=== PATIENT | male | born 1945 | race Caucasian/White ===

== ENCOUNTER 2020-04-10 16:10 | Inpatient (IN) | payer MEDICARE ==
[~2020-04-10 16:10] MED LIST: Iopamidol-370 76% 500 ML 1 ML ONE
[2020-04-10] MEDS ORDERED: Heparin 1,000 UNITS/ML VIAL ONE (16:36)
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
[2020-04-10 18:11] LABS: Troponin I 0.046 ng/mL (< 0.028)
[2020-04-10] MEDS ORDERED: HumaLOG 300 UNITS/3 ML VIAL SC PRN ×2 (18:38)
[2020-04-10] MEDS ORDERED: Dextrose 5% in Water 1,000 ML IV PRN (18:38)
[2020-04-10] MEDS ORDERED: Ondansetron PF 4 MG/2 ML Vial IVP PRN (18:38)
[2020-04-10] MEDS ORDERED: Dextrose 50% Abboject 50 ML SYRINGE SLOW IVP PRN (18:38)
[2020-04-10] MEDS ORDERED: Ondansetron ODT 4 MG TAB PO PRN (18:38)
[2020-04-10 21:16] LABS: Troponin I 0.046 ng/mL (< 0.028)
--- NOTE | 2020-04-10 21:18 | CT ---
EXAM: CTA of the chest HISTORY: Covid positive with shortness of breath COMPARISON: None TECHNIQUE: Multiple contiguous axial images were obtained a CTA of the chest with contrast per pulmon bipin embolism protocol. 3-D oblique MIP reformats and direct coronal reformats were performed. FINDINGS: HEART: Normal in size without focal cardiac abnormality. PULMONARY ARTERIES: Normal in caliber without filling defects to suggest pulmonary emboli. MEDIASTINUM: No hilar or mediastinal lymphadenopathy. LUNGS: Scattered multifocal infiltrates are seen in the lungs consistent with Covid pneumonia. No marily picious mass. There is a calcified granuloma in the right lung base. PLEURAL SPACE: No pleural effusion or pneumothorax. CHEST WALL SOFT TISSUES: Unremarkable VISUALIZED OSSEOUS STRUCTURES: Degenerative changes in the spine. VISUALIZED SUBDIAPHRAGMATIC STRUCTURES: Unremarkable IMPRESSION: 1. No evidence of pulmonary thromboembolism 2. Covid pneumonia
[2020-04-10] MEDS ORDERED: Albuterol 200 PUFF (6.7GM INHALER) INH PRN (23:02)
[2020-04-11] MEDS: cefTRIAXone\\ROCEPHIN 1 GM in Sodium Chloride 0.9% 100 ML IVPB SCH ×2 (00:55→22:54)
[2020-04-11] MEDS: Azithromycin 500 MG in Sodium Chloride 0.9% 250 ML 250 ML IVPB SCH ×2 (01:41→23:31)
--- NOTE | 2020-04-11 05:33 | PDOC.FM ---
- Subjective Subjective: Patient denies CP, Abd pain, SOB. Per nursing, patient removed HFNC overnight with resultant O2 sat in 40s to use the restroom. He rapidly improved with HFNC and has remained on HFNC with latest settings at 60 flow rate and 77 FiO2. - Objective MAR Reviewed: Yes Vital Signs & Weight: Vital Signs (12 hours) Temp Pulse Resp BP Pulse Ox 04/11/20 03:33 98.4 F 90 20 119/62 93 L 04/11/20 02:22 93 L 04/11/20 00:00 99 F 97 22 H 121/71 93 L 04/10/20 22:06 92 L 04/10/20 21:40 97.4 F L 97 26 H 140/65 91 L Weight Weight 83.9 kg I&O: 04/09/20 04/10/20 04/11/20 06:59 06:59 06:59 Intake Total 640 Output Total 600 Balance 40 Result Diagrams: 04/11/20 05:11 04/11/20 05:11 Phys Exam - Physical Examination Constitutional: NAD Neck: supple, full ROM HFNC in place, no respiratory distress Cardiovascular: RRR Gastrointestinal: soft, non-tender Musculoskeletal: no edema Neurological: non-focal Psychiatric: normal affect Dx/Plan - Plan Plan: AHRF 2/2 COVID Pna with likely superimposed bacterial Pna - first symptoms on 03/31/20, COVID + on 04/10 - presented to our ED on bipap, currently on HFNC, will wean as tolerated - CTA: no PE - CXR: covid pna - WBC 27.7, bands 29% - D-dimer: 3.36 - outside window for txt with remdesevir or conv plasma - s/p decadron in ED, will continue with 6mg daily - procal 1.5. --> rocephin and azithromycin for possible superimposed bacterial pna (04/10), will trend procal Indeterminate Troponin -0.034, 0.046 -ekg: sinus tach, no ST changes -likely due to demand ischemia RERE vs CKD - BUN/Cr 45/1.53 > 42/1.36 - no past records to compare - will renally dose meds DM2 -continue home meds -increase accuchecks to q4hr as patient is hyperglycemic -SSI, hypoglycemia protocol HLD -continue home med
[2020-04-11 05:57] LABS: ALT (SGPT) 36 U/L (8-55); AST (SGOT) 37 U/L (5-34); Albumin 2.9 g/dL (3.4-4.8); Alkaline Phosphatase 158 U/L (40-110); Anion Gap 15 mmol/L (10-20); BUN (Urea Nitrogen) 42 mg/dL (8.4-25.7); Bilirubin, Total 0.4 mg/dL (0.2-1.2); Calc. Creatinine Clearance 55 mL/min (70-130); Calcium 8.7 mg/dL (7.8-10.44); Carbon Dioxide 23 mmol/L (23-31); Chloride 107 mmol/L (98-107); Globulin 3.3 g/dL (2.4-3.5); Glucose 355 mg/dL (83-110); Potassium 4.5 mmol/L (3.5-5.1); Protein, Total 6.2 g/dL (5.8-8.1); Sodium 140 mmol/L (136-145)
[2020-04-11 06:29] LABS: Hemoglobin 12.5 g/dL (14.0-18.0); Mean Corpuscular Hemoglobin 34.4 pg (27.0-31.0); Mean Platelet Volume 8.4 fL (7.4-10.4); Platelet Count 325 thou/uL (130-400); RBC Distribution Width 12.6 % (11.5-14.5); Red Blood Cell (RBC) Count 3.63 mill/uL (4.70-6.10); White Blood Cell (WBC) Count 24.9 thou/uL (4.8-10.8)
[2020-04-11 06:30] LABS: Band 21 % (5-11); Lymphocytes 9 % (21-51); MDiff Complete? YES; Monocytes 1 % (0-10); Myelocyte 2 % (0-0); Neutrophil 67 % (42-75)
[2020-04-11] MEDS ORDERED: SITAGLIPTIN PHOS PO SCH (08:00)
[2020-04-11] MEDS ORDERED: METFORMIN HCL PO SCH (08:00)
[2020-04-11] MEDS ORDERED: Alogliptin 25 MG TAB PO SCH (08:00)
[2020-04-11] MEDS ORDERED: [UNRECOGNIZED DRUG - OTHER] PO SCH (08:00)
[2020-04-11] MEDS ORDERED: metFORMIN XR 500 MG TAB PO SCH (08:00)
[2020-04-11] MEDS: Enoxaparin Sodium 40 MG/0.4 ML SYRINGE SC SCH (08:38)
[2020-04-11] MEDS: Dexamethasone 4 MG TAB PO SCH (08:39)
[2020-04-11] MEDS: Atorvastatin Calcium 20 MG TAB PO SCH (08:40)
[2020-04-11] MEDS: HumaLOG 300 UNITS/3 ML VIAL SC PRN ×4 (12:22→23:54)
[2020-04-11] MEDS: Acetaminophen 325 MG TAB PO PRN (20:31)
[2020-04-12] MEDS: HumaLOG 300 UNITS/3 ML VIAL SC PRN ×4 (05:54→20:38)
--- NOTE | 2020-04-12 05:58 | PDOC.FM ---
- Subjective Subjective: Patient expressed desire to go home; however, his O2 sat drops easily with simple conversation. The patient denies CP, abdominal pain, SOB despite being on HFNC. Reports that he is eating and drinking well. - Objective MAR Reviewed: Yes Vital Signs & Weight: Vital Signs (12 hours) Temp Pulse Resp BP Pulse Ox 04/12/20 04:00 98.3 F 94 24 H 132/76 95 04/12/20 03:06 85 18 94 L 04/12/20 01:15 96 04/12/20 00:01 98.9 F 89 20 123/68 96 04/11/20 22:40 20 94 L 04/11/20 21:01 98.9 F 04/11/20 20:31 99.1 F 100 24 H 94 L 04/11/20 20:01 93 L 04/11/20 19:36 92 L 04/11/20 19:30 99.1 F 103 H 26 H 149/77 H 93 L Weight Weight 83.9 kg I&O: 04/10/20 04/11/20 04/12/20 06:59 06:59 06:59 Intake Total 640 100 Output Total 600 400 Balance 40 -300 Result Diagrams: 04/12/20 06:11 04/12/20 06:11 EKG Reviewed by me: Yes (SR 80s to ST 115) Phys Exam - Physical Examination Constitutional: NAD HFNC in place crackles bilaterally Cardiovascular: RRR Gastrointestinal: soft, non-tender Musculoskeletal: no edema Neurological: non-focal Psychiatric: normal affect Dx/Plan - Plan Plan: AHRF 2/2 COVID Pna with likely superimposed bacterial Pna - first symptoms on 03/31/20, COVID + on 04/10 - currently on HFNC, will wean as tolerated - CTA: no PE - CXR: covid pna - WBC 27.7, bands 29% > 22.3 - D-dimer: 3.36 - outside window for txt with remdesevir or conv plasma - decadron 6mg daily - procal 1.5 > 0.78, will D/C rocephin (04/10-04/11) and change azithromycin to PO for possible superimposed atypical bacterial pna (04/10) Indeterminate Troponin -0.034, 0.046 -ekg: sinus tach, no ST changes -likely due to demand ischemia RERE vs CKD - BUN/Cr 45/1.53 > 42/1.36 > 40/1.11 - no past records to compare - will renally dose meds DM2 -held home meds while in hospital -started on 15 units lantus q AM -increase accuchecks to q4hr as patient is hyperglycemic -SSI, hypoglycemia protocol HLD -continue home med
[2020-04-12 06:49] LABS: Hemoglobin 12.4 g/dL (14.0-18.0); Mean Corpuscular HGB CONC 32.2 g/dL (32.0-36.0); Mean Corpuscular Hemoglobin 33.6 pg (27.0-31.0); Mean Platelet Volume 8.3 fL (7.4-10.4); Platelet Count 294 thou/uL (130-400); RBC Distribution Width 12.7 % (11.5-14.5); White Blood Cell (WBC) Count 22.3 thou/uL (4.8-10.8)
[2020-04-12 07:07] LABS: Anion Gap 14 mmol/L (10-20); BUN (Urea Nitrogen) 40 mg/dL (8.4-25.7); Calc. Creatinine Clearance 67 mL/min (70-130); Carbon Dioxide 24 mmol/L (23-31); Chloride 110 mmol/L (98-107); Sodium 143 mmol/L (136-145)
[2020-04-12 07:08] LABS: Calcium 8.6 mg/dL (7.8-10.44); Glucose 269 mg/dL (83-110)
[2020-04-12 07:33] LABS: Band 15 % (5-11); Lymphocytes 6 % (21-51); MDiff Complete? YES; Monocytes 3 % (0-10); Neutrophil 76 % (42-75); Polychromasia SLIGHT = 2-3 cells (100X) (0-2/hpf)
[2020-04-12] MEDS: Atorvastatin Calcium 20 MG TAB PO SCH (08:30)
[2020-04-12] MEDS: Enoxaparin Sodium 40 MG/0.4 ML SYRINGE SC SCH (08:30)
[2020-04-12] MEDS: Dexamethasone 4 MG TAB PO SCH (08:31)
[2020-04-12] MEDS ORDERED: Insulin Glargine 15 UNITS in Pre-Filled Syringe 1 EACH SC SCH (09:00)
[2020-04-12] MEDS ORDERED: Azithromycin 250 MG TAB PO SCH (23:00)
[2020-04-13] MEDS: HumaLOG 300 UNITS/3 ML VIAL SC PRN ×6 (00:08→21:34)
[2020-04-13 07:24] LABS: Anion Gap 16 mmol/L (10-20); BUN (Urea Nitrogen) 35 mg/dL (8.4-25.7); Calc. Creatinine Clearance 86 mL/min (70-130); Calcium 8.6 mg/dL (7.8-10.44); Carbon Dioxide 21 mmol/L (23-31); Chloride 109 mmol/L (98-107); Glucose 219 mg/dL (83-110); Potassium 5.1 mmol/L (3.5-5.1); Sodium 141 mmol/L (136-145)
[2020-04-13 07:25] LABS: #Eosinphils 0.1 thou/uL (0.0-0.7); #Monocytes 1.2 thou/uL (0.11-0.59); #Neutrophils 17.9 thou/uL (1.40-6.50); %Basophils 0.1 % (0.0-1.0); %Eosinophils 0.3 % (0.0-10.0); %Lymphocytes 4.7 % (21.0-51.0); %Monocytes 5.9 % (0.0-10.0); Hemoglobin 12.8 g/dL (14.0-18.0); Mean Corpuscular HGB CONC 31.2 g/dL (32.0-36.0); Mean Corpuscular Hemoglobin 32.8 pg (27.0-31.0); Mean Platelet Volume 8.2 fL (7.4-10.4); Platelet Count 248 thou/uL (130-400); RBC Distribution Width 12.7 % (11.5-14.5); White Blood Cell (WBC) Count 20.2 thou/uL (4.8-10.8)
--- NOTE | 2020-04-13 07:36 | PDOC.FM ---
- Subjective Subjective: Patient denies TUCKER, CP, Abd pain. Reports that he is ready to go home despite need for HFNC. He reports that he feels fine and does not have any concerns. He would like to work with physical therapy. - Objective MAR Reviewed: Yes Vital Signs & Weight: Vital Signs (12 hours) Temp Pulse Resp BP BP Pulse Ox 04/13/20 04:00 97.7 F 75 22 H 130/64 90 L 04/13/20 00:35 9 L 04/13/20 00:18 93 L 04/13/20 00:00 98.3 F 86 18 124/77 89 L 04/12/20 20:00 97.4 F L 87 20 135/70 94 L 04/12/20 19:45 96 Weight Weight 83.9 kg I&O: 04/12/20 04/13/20 04/14/20 06:59 06:59 06:59 Intake Total 100 466 Output Total 400 200 Balance -300 266 Result Diagrams: 04/13/20 06:00 04/13/20 03:30 EKG Reviewed by me: Yes (SR) Phys Exam - Physical Examination Constitutional: NAD HEENT: moist MMs HFNC in place Neck: supple crackles at the bases Cardiovascular: RRR Gastrointestinal: soft, non-tender, positive bowel sounds Musculoskeletal: no edema Neurological: non-focal, moves all 4 limbs Psychiatric: normal affect Dx/Plan - Plan Plan: AHRF 2/2 COVID Pna with likely superimposed bacterial Pna - first symptoms on 03/31/20, COVID + on 04/10 - currently on HFNC, will wean as tolerated - CTA: no PE - CXR: covid pna - WBC 27.7, bands 29% > 22.3 - D-dimer: 3.36 - outside window for txt with remdesevir or conv plasma - decadron 6mg daily - procal 1.5 > 0.78, will trend - CRP: 37.55, will trend - s/p rocephin (04/10-04/11), continue PO azithromycin for possible superimposed atypical bacterial pna (04/10) - PT consulted for evaluation and treatment Indeterminate Troponin -0.034, 0.046 -ekg: sinus tach, no ST changes -likely due to demand ischemia RERE, resolved - BUN/Cr 45/1.53 > 42/1.36 > 40/1.11 > 35/0.87 - no past records to compare DM2 -held home meds while in hospital -started on 15 units lantus > increased to 25 units -increase accuchecks to q4hr as patient is hyperglycemic -SSI, hypoglycemia protocol HLD -continue home med
[2020-04-13] MEDS: Dexamethasone 4 MG TAB PO SCH (09:02)
[2020-04-13] MEDS: Enoxaparin Sodium 40 MG/0.4 ML SYRINGE SC SCH (09:03)
[2020-04-13] MEDS: Atorvastatin Calcium 20 MG TAB PO SCH (09:03)
[2020-04-13] MEDS: Insulin Glargine 25 UNITS in Pre-Filled Syringe 1 EACH SC SCH (09:25)
--- NOTE | 2020-04-14 05:41 | PDOC.FM ---
- Subjective Subjective: Patient O2sat continues to drop with minimal exertion. Upon entering the room this morning, patient's O2 sat was in the low 70s. He quickly recovered to the 90s once he stopped conversing and was able to rest. He denies pain, but reports difficulty breathing. He is currently maxed out on HFNC. Discussed next step of BiPAP with the patient. - Objective MAR Reviewed: Yes Vital Signs & Weight: Vital Signs (12 hours) Temp Pulse Resp BP Pulse Ox 04/14/20 03:10 98.4 F 75 22 H 135/67 90 L 04/14/20 01:29 92 L 04/14/20 00:42 98.1 F 78 22 H 138/73 92 L 04/13/20 20:30 92 L 04/13/20 19:38 97.9 F 86 24 H 139/78 91 L Weight Weight 83.9 kg I&O: 04/12/20 04/13/20 04/14/20 06:59 06:59 06:59 Intake Total 100 466 610 Output Total 481 531 0898 Balance -300 266 -615 Result Diagrams: 04/14/20 07:11 04/14/20 07:12 EKG Reviewed by me: Yes (SR) Phys Exam - Physical Examination Anxious appearing HFNC in place Neck: supple, full ROM Wheezing, tachypneic tachycardic Gastrointestinal: soft, positive bowel sounds Musculoskeletal: no edema Neurological: moves all 4 limbs Psychiatric: A&O x 3 Skin: no rash Dx/Plan - Plan Plan: AHRF 2/2 COVID Pna with likely superimposed bacterial Pna - first symptoms on 03/31/20, COVID + on 04/10 - maxed out on HFNC with O2sats in low 80s, will transition to BiPAP and move patient to IMCU - CTA: no PE, CXR: covid pna - WBC 27.7, bands 29% > > > 25.6; D-dimer: 3.36 - outside window for txt with remdesevir or conv plasma - decadron 6mg daily > increased to 6mg IV BID - increased albuterol inhaler to Q4hr prn - procal 1.5 > 0.78 > 0.36 > will trend; CRP: 37.55 > 9.06 > 5.21, will trend - s/p rocephin (04/10-04/11), continue PO azithromycin for possible superimposed atypical bacterial pna (04/10) - PT consulted for evaluation and treatment - xray ordered and pending Indeterminate Troponin -0.034, 0.046 -ekg: sinus tach, no ST changes -likely due to demand ischemia RERE, resolved DM2 -held home meds while in hospital -started on 15 units lantus > increased to 25 units -increase accuchecks to q4hr as patient is hyperglycemic -SSI, hypoglycemia protocol HLD -continue home med Dispo: will place patient on BiPAP, transfer to [facility]
[2020-04-14 07:40] LABS: Hemoglobin 14.5 g/dL (14.0-18.0); Mean Corpuscular HGB CONC 33.3 g/dL (32.0-36.0); Mean Corpuscular Hemoglobin 34.9 pg (27.0-31.0); Mean Platelet Volume 8.4 fL (7.4-10.4); Platelet Count 159 thou/uL (130-400); RBC Distribution Width 12.5 % (11.5-14.5); Red Blood Cell (RBC) Count 4.14 mill/uL (4.70-6.10); White Blood Cell (WBC) Count 25.6 thou/uL (4.8-10.8)
[2020-04-14 08:04] LABS: Anion Gap 15 mmol/L (10-20); BUN (Urea Nitrogen) 31 mg/dL (8.4-25.7); Calc. Creatinine Clearance 88 mL/min (70-130); Calcium 8.7 mg/dL (7.8-10.44); Carbon Dioxide 23 mmol/L (23-31); Chloride 105 mmol/L (98-107); Glucose 138 mg/dL (83-110); Potassium 4.7 mmol/L (3.5-5.1); Sodium 138 mmol/L (136-145)
--- NOTE | 2020-04-14 08:41 | RAD ---
Chest one view HISTORY:: Pneumonia. COMPARISON: 04/10/2020. FINDINGS: Cardiac silhouette is magnified by projection. Ill-defined patchy areas of groundglass infi ltrate throughout each lung are more pronounced than on the prior study, especially at the right lower lobe. No lobar consolidation or evidence of pneumothorax. IMPRESSION : Mild to moderate progression of bilateral groundglass multifocal infiltrates.
[2020-04-14 08:43] LABS: Band 8 % (5-11); Lymphocytes 7 % (21-51); MDiff Complete? YES; Macrocytosis SLIGHT = 6-15 cells (100X) (0-5/hpf); Metamyelocyte 1 % (0-0); Monocytes 5 % (0-10); Myelocyte 1 % (0-0); Neutrophil 78 % (42-75); Platelet Morphology Comment Appears Adequate; Polychromasia SLIGHT = 2-3 cells (100X) (0-2/hpf)
[2020-04-14] MEDS ORDERED: Lorazepam 2 MG/ML VIAL ONE ×3 (08:50→12:24)
[2020-04-14] MEDS ORDERED: Lorazepam 2 MG/ML VIAL SLOW IVP SCH ×2 (09:00→10:15)
[2020-04-14] MEDS ORDERED: Electrolyte Replacement Protocol 1 EACH FS ONE (10:40)
[2020-04-14] MEDS ORDERED: Ventilator Sedation Protocol 1 EACH FS SCH (10:40)
[2020-04-14] MEDS ORDERED: DISCONTINUE PREVIOUS NARCOTIC PAIN MEDICATIONS AND BENZODIAZEPINES FS SCH (11:00)
[2020-04-14] MEDS ORDERED: Electrolyte Replacement Protocol FS PRN (11:00)
[2020-04-14] MEDS ORDERED: Propofol BOLUS 1,000 MG/100 ML VIAL IV PRN (11:00)
[2020-04-14] MEDS ORDERED: fentaNYL Citrate/PF 2,000 MCG in Sodium Chloride 0.9% 60 ML IV SCH (11:00)
[2020-04-14] MEDS ORDERED: Fentanyl BOLUS 250 ML IVPB PRN (11:00)
[2020-04-14] MEDS ORDERED: Morphine 2 MG/ML VIAL SLOW IVP PRN (11:00)
--- NOTE | 2020-04-14 11:15 | CON ---
DATE OF CONSULTATION: 04/14/2020 This is 35 minutes of critical time. REASON FOR CONSULTATION: Decompensated COVID pneumonia. HISTORY OF PRESENT ILLNESS: The patient tells me that he was diagnosed with COVID-19 infection about 14 days ago. His is also sick. The patient has been hospitalized since 04/10. He has been gradually worsening in terms of his hypoxemia. Today, he was placed on BiPAP with 100% FiO2 and despite that, his O2 sats are only in the 80s. He does not like being on the BiPAP, feels like he is smothering and is requesting to be intubated. PAST MEDICAL HISTORY: 1. Hypertension. 2. Hyperlipidemia. 3. Diabetes mellitus type 2. PAST SURGICAL HISTORY: Neck surgery. FAMILY HISTORY: Father of an aneurysm. SOCIAL HISTORY: He smoked less than a pack per day for 10 years, quitting 15 years ago. Does not drink alcohol. Does not use illicit drugs. Lives with the in [place]. MEDICATIONS: Prior to admission: 1. Atorvastatin. 2. Doxycycline. 3. Janumet. ALLERGIES: NONE. REVIEW OF SYSTEMS: Difficult to obtain because the patient is on BIPAP. PHYSICAL EXAMINATION: VITAL SIGNS: Temperature 100.5, pulse 104, respirations 24, O2 saturation 98% on BiPAP, 100% FiO2, blood pressure 169/76. GENERAL: This is an elderly man who is in florid respiratory distress and very anxious. HEENT: Unremarkable. NECK: No adenopathy or JVD. LUNGS: Diffuse crackles. CARDIAC: S1 and S2. Tachycardic. ABDOMEN: Obese, soft, nontender. EXTREMITIES: No clubbing, cyanosis, or edema. LABORATORY DATA: White blood cell count 25.6, hematocrit 43, platelet count 159. Sodium 138, potassium 4.7, chloride 105, CO2 23, BUN 31, creatinine 0.8, glucose 138. Last C-reactive protein was 5.2. His x-ray shows diffuse bilateral infiltrates. ASSESSMENT: 1. COVID-19 pneumonia with worsening hypoxemia. 2. Acute hypoxic respiratory failure. PLAN: The patient really faces no other choice except to be intubated versus doing continued BiPAP. The BiPAP does not seem to be helping. The patient states that he is uncomfortable with the BiPAP and very anxious and is requesting to be intubated. Because of lack of the ICU beds, he will be taken down to the PACU, and intubated. He will be in prone position for 72 hours. I have started colchicine to be given in addition to his steroids and anticoagulation. His prognosis is very poor for functional recovery. I will try to discuss the case with his . Job ID: [id number]
[2020-04-14] MEDS ORDERED: PROPOFOL 0 ML ONE (11:26)
[2020-04-14] MEDS ORDERED: Propofol 1,000 MG/100 ML VIAL IV ONE (11:27)
[2020-04-14] MEDS: Albuterol 200 PUFF (6.7GM INHALER) INH SCH ×4 (12:15→23:16)
[2020-04-14] MEDS ORDERED: Vecuronium 10 MG VIAL ONE ×2 (12:24→12:53)
[2020-04-14] MEDS: Propofol 1,000 MG/100 ML VIAL IV PRN ×2 (12:50→17:53)
[2020-04-14] MEDS: Vecuronium 10 MG VIAL IVP PRN ×3 (12:50→21:28)
[2020-04-14] MEDS ORDERED: Fentanyl CADD 100 ML ONE (12:52)
--- NOTE | 2020-04-14 12:59 | OP ---
DATE OF PROCEDURE: 04/14/2020 PROCEDURE PERFORMED: Left subclavian central line placement. PREOPERATIVE DIAGNOSES: COVID, poor IV access. POSTOPERATIVE DIAGNOSIS: Successful left subclavian placement. ANESTHESIA: 1% lidocaine without epinephrine. DESCRIPTION OF PROCEDURE: The patient had been intubated, sedated and paralyzed prior to me performing the procedure. The left subclavian region was cleansed with chlorhexidine and the patient was draped sterilely. The patient was in the flat prone position for the procedure. I could not put him in Trendelenburg because his oxygenation was terrible on mechanical ventilation. After local anesthesia had been applied, a central line was placed in the left subclavian vein via the modified Seldinger technique on the first attempt without difficulty. X-ray performed after the procedure confirmed proper line placement. All 3 ports flushed venous blood. Job ID: [id number]
[2020-04-14 13:08] LABS: Actual Bicarbonate (HCO3a) 23.5 mEq/L (22-28); Base Excess (BEa) -3.9 mEq/L (-2.0 to +3.0); CO2 Tension 51.7 mmHg (35.0-45.0); Calcium, Ionized (arterial) 1.19 mmol/L (1.12-1.30); Carboxyhemoglobin (COHb) 1.4 gm% (0.0-3.0); Hemoglobin (Hb) 15.2 g/dL (14.0-18.0); Potassium - ABG Lab 4.61 mmol/L (3.70-5.30); pH, Arterial 7.28 (7.35-7.45)
[2020-04-14 13:14] LABS: ALV-art Gradient 567.375 mmHg (0-20); Puncture Site RRA
[2020-04-14] MEDS: Enoxaparin Sodium 40 MG/0.4 ML SYRINGE SC SCH (14:22)
[2020-04-14] MEDS: Acetaminophen 325 MG TAB PO PRN ×2 (14:22→22:56)
[2020-04-14] MEDS: Atorvastatin Calcium 20 MG TAB PO SCH (14:23)
[2020-04-14] MEDS: Insulin Glargine 25 UNITS in Pre-Filled Syringe 1 EACH SC SCH (14:25)
[2020-04-14] MEDS: Sodium Chloride 0.9% 1,000 ML IV SCH (14:33)
[2020-04-14] MEDS: Dexamethasone 6 MG in Sodium Chloride 0.9% 50 ML IVPB SCH ×2 (14:34→20:46)
--- NOTE | 2020-04-14 16:08 | RAD ---
PORTABLE CHEST: Date: 04/14/2020 HISTORY: COVID pneumonia follow-up. COMPARISON: Earlier exam same date. FINDINGS: Since the prior study, there has been placement of an endotracheal tube which is in satisfactory posi tion. NG tube is seen, the tip is difficult to visualize and appears to be below the hemidiaphragm. T here has been placement of a left subclavian line with catheter tip overlying the right atrium. No pn eumothorax. Interstitial alveolar lung changes appear somewhat worsened as compared to the prior exam . IMPRESSION: 1. Placement of endotracheal and NG tubes and left subclavian line. No pneumothorax. 2. Slight worsening of the interstitial alveolar lung change. POS: [facility]
[2020-04-14] MEDS: Colchicine 0.6 MG TAB PO SCH (20:46)
[2020-04-14] MEDS: HumaLOG 300 UNITS/3 ML VIAL SC PRN (22:53)
[2020-04-15] MEDS: HumaLOG 300 UNITS/3 ML VIAL SC PRN ×5 (00:36→16:59)
[2020-04-15] MEDS: Vecuronium 10 MG VIAL IVP PRN ×6 (01:30→19:15)
[2020-04-15] MEDS: Albuterol 200 PUFF (6.7GM INHALER) INH SCH ×5 (02:49→21:45)
[2020-04-15] MEDS: Sodium Chloride 0.9% 1,000 ML IV SCH ×2 (03:42→16:22)
[2020-04-15 04:23] LABS: Anion Gap 14 mmol/L (10-20); BUN (Urea Nitrogen) 47 mg/dL (8.4-25.7); Calc. Creatinine Clearance 56 mL/min (70-130); Calcium 7.3 mg/dL (7.8-10.44); Carbon Dioxide 23 mmol/L (23-31); Chloride 106 mmol/L (98-107); Glucose 245 mg/dL (83-110); Potassium 5.6 mmol/L (3.5-5.1); Sodium 137 mmol/L (136-145)
[2020-04-15 04:25] LABS: Band 29 % (5-11); Hemoglobin 12.9 g/dL (14.0-18.0); Lymphocytes 2 % (21-51); MDiff Complete? YES; Mean Corpuscular HGB CONC 31.6 g/dL (32.0-36.0); Mean Corpuscular Hemoglobin 33.2 pg (27.0-31.0); Mean Platelet Volume 10.6 fL (7.4-10.4); Metamyelocyte 1 % (0-0); Monocytes 2 % (0-10); Neutrophil 66 % (42-75); Platelet Count 76 thou/uL (130-400); Platelet Morphology Comment Appears Decreased; RBC Distribution Width 12.8 % (11.5-14.5); Red Blood Cell (RBC) Count 3.87 mill/uL (4.70-6.10); White Blood Cell (WBC) Count 31.1 thou/uL (4.8-10.8)
--- NOTE | 2020-04-15 06:12 | PDOC.FM ---
- Subjective Subjective: Patient was placed on BiPAP yesterday morning. He was experiencing anxiety on the BiPAP despite Ativan administration. He was also becoming fatigued and asked to be intubated. The patient is now intubated and sedated with propofol and fentanyl. He is currently being proned. A left subclavian was also placed yesterday. His current vent settings are FiO2 of 70, TV 450, RR 20, and PEEP of 12. Colchicine was also added to the patient's medication regimen yesterday. - Objective MAR Reviewed: Yes Vital Signs & Weight: Vital Signs (12 hours) Temp Pulse Pulse Ox 04/15/20 02:29 84 04/14/20 22:56 100.4 F H 04/14/20 22:48 97 04/14/20 20:00 98 04/14/20 18:41 92 Weight Weight 83.9 kg Most Recent Monitor Data Heart Rate from ECG 82 NIBP 98/58 NIBP BP-Mean 71 Respiration from ECG 20 SpO2 94 I&O: 04/13/20 04/14/20 04/15/20 06:59 06:59 06:59 Intake Total 176 167 8266 Output Total 200 1225 502 Balance 266 -615 990 Result Diagrams: 04/15/20 02:50 04/15/20 02:50 Phys Exam - Physical Examination Intubated, proned Neck: no JVD coarse breath sounds throughout Cardiovascular: RRR Musculoskeletal: no edema sedated and paralyzed Skin: no rash Dx/Plan - Plan Plan: 1. Neuro - patient intubated, sedated, and paralyzed with propofol, fentanyl, and vecuronium - will monitor patient's response to sedation vacations 2. CV - RRR, will continue cardiac monitoring - Indeterminate Troponin - 0.034, 0.046 - ekg: sinus tach, no ST changes - likely due to demand ischemia 3 .Resp - COVID PNA (first symptoms on 03/31/20, COVID + on 04/10), outside window for txt with remdesevir or conv plasma - IV dex 6 mg BID, colchicine, albuterol inhaler - patient had rapid decline on 04/14 from HFNC to BiPAP to intubation - Current Vent Settings: FiO2 70, TV 450, RR 20, PEEP 12 - ABG: PH 7.25, pCO2 51.7, pO2 75.3 > Respiratory acidosis, consider increased RR and decreasing TV - Pulmonology, Dr. Velez consulted - xray: stable GI - dietary consulted, will need tube feeds - will need bowel regiment Renal/Hep - RERE - BUN/CR: 47/1.33 - fluids at 70 mls/hr - will continue to monitor with daily CMP 4. ID - COVID PNA, see above - s/p rocephin (04/10-04/11) and azithro (04/10-04/12) for possible superimposed bacterial infection - will monitor for sings of other infections 5. Heme - Plt: 77, Lovenox DC'd and fondaparinux added 6. Endo/Electrolytes - DM2: held home meds while in hospital, on 25 units of basal insulin, SSI, hypoglycemia protocol - will monitor patient's glucose throughout the day, will likely need increase in insulin - Hyperkalemia: kayexalate ordered, repeat K at 1800, insulin given this morning should help as well 7. Lines/Tubes: - Subclavian central line placed on 04/14 - Intubated on 04/14 - Winkler placed on 04/14 8. Abx: - s/p rocephin (04/10-04/11) and azithro (04/10-04/12) Dispo: continue medical management with steroids, colchicine, and ventilation in the ICU; will continue to monitor electrolytes and treat as needed
[2020-04-15] MEDS ORDERED: Albuterol Sulfate 2.5 mg/3 ml Neb NEB PRN (06:24)
[2020-04-15 06:56] LABS: Actual Bicarbonate (HCO3a) 22.3 mEq/L (22-28); Base Excess (BEa) -5.3 mEq/L (-2.0 to +3.0); CO2 Tension 51.7 mmHg (35.0-45.0); Calcium, Ionized (arterial) 1.13 mmol/L (1.12-1.30); Carboxyhemoglobin (COHb) 1.1 gm% (0.0-3.0); O2 Tension (PaO2), arterial 75.3 mmHg (> 70.0); Potassium - ABG Lab 5.25 mmol/L (3.70-5.30)
[2020-04-15 06:58] LABS: ALV-art Gradient 359.175 mmHg (0-20); Puncture Site RRA; pH, Arterial 7.25 (7.35-7.45)
--- NOTE | 2020-04-15 08:16 | PRG ---
DATE OF SERVICE: 04/15/2020 TIME SPENT: 35 minutes of critical care time. SUBJECTIVE: The patient remains in a prone position on mechanical ventilation. OBJECTIVE: VITAL SIGNS: Temperature 99.3, pulse 82, blood pressure 101/60, O2 saturation 95%. 24-hour intake 1492, output 502. HEENT: Unremarkable. NECK: No adenopathy or JVD. LUNGS: Coarse breath sounds. CARDIAC: S1, S2. Regular. ABDOMEN: Soft. EXTREMITIES: No edema. LABORATORY DATA: Sodium 137, potassium 5.6, chloride 106, CO2 of 23, BUN 47, creatinine 1.3, glucose 245. White blood cell count 31.1, hematocrit 40.7, and platelet count 76. ABG; pH 7.25, pCO2 of 52, pO2 of 75, on assist control, rate 20, tidal volume 450, PEEP 12, FiO2 of 70%. X-ray continued to show bilateral infiltrates. ASSESSMENT: 1. COVID-19 pneumonia. 2. Acute hypoxic respiratory failure requiring mechanical ventilation. 3. Diabetes mellitus type 2. 4. Developing hyperkalemia and renal insufficiency. PLAN: 1. I will go ahead and give him a dose of Kayexalate. His platelet count based on that, we will have to stop the enoxaparin and I will put him on Arixtra instead. 2. Continue colchicine, steroids. 3. One dose of Kayexalate. 4. Continue insulin. 5. Prognosis extremely guarded. Job ID: [id number]
[2020-04-15] MEDS: Colchicine 0.6 MG TAB PO SCH ×2 (08:46→20:27)
[2020-04-15] MEDS: Atorvastatin Calcium 20 MG TAB PO SCH (08:46)
[2020-04-15] MEDS: Dexamethasone 6 MG in Sodium Chloride 0.9% 50 ML IVPB SCH ×2 (08:46→20:27)
[2020-04-15] MEDS: Insulin Glargine 25 UNITS in Pre-Filled Syringe 1 EACH SC SCH (08:46)
[2020-04-15] MEDS: Pantoprazole 40 MG VIAL IVP SCH (08:46)
--- NOTE | 2020-04-15 09:41 | RAD ---
CHEST 1 VIEW: Date; 04/15/2020 INDICATION: History of pneumonia. COMPARISON: Prior exam dated 04/14/2020. IMPRESSION: The patient is intubated with gastric catheter placement and a left subclavian central venous cathete r which is stable. Bilateral air space disease persists. No pneumothorax is evident. POS: BH
[2020-04-15] MEDS ORDERED: FONDAPARINUX SODIUM SC SCH (11:45)
[2020-04-15] MEDS ORDERED: ADMIXTURE FEE SC SCH (11:45)
[2020-04-15] MEDS ORDERED: Fentanyl CADD 100 ML ONE (12:33)
[2020-04-15] MEDS: Propofol 1,000 MG/100 ML VIAL IV PRN ×2 (12:36→23:28)
[2020-04-15] MEDS ORDERED: Sterile Water 10 ML ONE (16:35)
[2020-04-15 18:38] LABS: Potassium 5.1 mmol/L (3.5-5.1)
[2020-04-15] MEDS: Lorazepam 2 MG/ML VIAL SLOW IVP PRN (21:15)
[2020-04-16] MEDS: HumaLOG 300 UNITS/3 ML VIAL SC PRN ×5 (00:08→20:01)
[2020-04-16] MEDS: Albuterol 200 PUFF (6.7GM INHALER) INH SCH ×6 (01:35→21:54)
[2020-04-16] MEDS: Vecuronium 10 MG VIAL IVP PRN ×8 (03:30→23:50)
[2020-04-16 04:29] LABS: Anion Gap 10 mmol/L (10-20); BUN (Urea Nitrogen) 43 mg/dL (8.4-25.7); Calc. Creatinine Clearance 72 mL/min (70-130); Calcium 7.3 mg/dL (7.8-10.44); Carbon Dioxide 25 mmol/L (23-31); Chloride 109 mmol/L (98-107); Glucose 263 mg/dL (83-110); Potassium 4.7 mmol/L (3.5-5.1); Sodium 139 mmol/L (136-145)
[2020-04-16 05:09] LABS: Hemoglobin 12.5 g/dL (14.0-18.0); Large Platelets SLIGHT; Lymphocytes 5 % (21-51); MDiff Complete? YES; Mean Corpuscular HGB CONC 32.1 g/dL (32.0-36.0); Mean Corpuscular Hemoglobin 33.9 pg (27.0-31.0); Mean Platelet Volume 10.5 fL (7.4-10.4); Monocytes 1 % (0-10); Neutrophil 94 % (42-75); Platelet Count 84 thou/uL (130-400); Platelet Morphology Comment Appears Decreased; RBC Distribution Width 12.9 % (11.5-14.5); Red Blood Cell (RBC) Count 3.69 mill/uL (4.70-6.10); White Blood Cell (WBC) Count 28.8 thou/uL (4.8-10.8)
--- NOTE | 2020-04-16 05:15 | PDOC.FM ---
- Subjective Subjective: No acute events overnight. Patient remains intubated, sedated, and paralyzed. He is still in the proned position. He was started on tube feeds. - Objective MAR Reviewed: Yes Vital Signs & Weight: Vital Signs (12 hours) Pulse Resp Pulse Ox 04/16/20 02:26 88 04/15/20 22:23 93 04/15/20 19:35 98 04/15/20 19:21 110 H 04/15/20 18:00 23 H Weight Admit Weight 83.461 kg Weight 83.9 kg Most Recent Monitor Data Heart Rate from ECG 89 NIBP 126/68 NIBP BP-Mean 87 Respiration from ECG 23 SpO2 97 I&O: 04/14/20 04/15/20 04/16/20 06:59 06:59 06:59 Intake Total 610 1492 1089 Output Total 7423 973 5359 Balance -615 990 -141 Result Diagrams: 04/16/20 03:40 04/16/20 03:40 Phys Exam - Physical Examination intubated, sedated, paralyzed, prone position Neck: no JVD coarse breath sounds bilaterally, expiratory wheezing at the bases Cardiovascular: RRR Gastrointestinal: soft, positive bowel sounds Musculoskeletal: no edema, pulses present medically paralyzed Skin: no rash Dx/Plan - Plan Plan: 1. Neuro - patient intubated, sedated, and paralyzed with propofol, fentanyl, and vecuronium - will monitor patient's response to sedation vacations 2. CV - RRR, will continue cardiac monitoring - Indeterminate Troponin - 0.034, 0.046 - ekg: sinus tach, no ST changes - likely due to demand ischemia 3 .Resp - COVID PNA (first symptoms on 03/31/20, COVID + on 04/10), outside window for txt with remdesevir or conv plasma - IV dex 6 mg BID, colchicine, albuterol inhaler - patient had rapid decline on 04/14 from HFNC to BiPAP to intubation - Current Vent Settings: FiO2 65, TV 450, RR 23, PEEP 12 - ABG on 04/15: PH 7.25, pCO2 51.7, pO2 75.3; patient's RR rate was increased following ABG results - Pulmonology, Dr. Velez consulted - xray: stable 4. GI - dietary consulted, nepro tube feeds - daily miralax with prn colace 5. Renal/Hep - RERE, improving - BUN/CR: 47/1.33 > 43/1.04 - fluids at 70 mls/hr - will continue to monitor with daily CMP 6. ID - COVID PNA, see above - s/p rocephin (04/10-04/11) and azithro (04/10-04/12) for possible superimposed bacterial infection - will monitor for sings of other infections 7. Heme - Plt: 77 > 84, Lovenox DC'd and fondaparinux added 8. Endo/Electrolytes - DM2: held home meds while in hospital, increase to 30 units of basal insulin, aggressive SSI, hypoglycemia protocol - Hyperkalemia: resolved after kayexalate; 4.7 on am BMP 9. Lines/Tubes: - Left Subclavian central line placed on 04/14 - Intubated on 04/14 with NG tube placed - Winkler placed on 04/14 - IV: Left AC 10. Abx: - s/p rocephin (04/10-04/11) and azithro (04/10-04/12) Dispo: continue medical management with steroids, colchicine, and ventilation in the ICU; will continue to monitor electrolytes and treat as needed Addendum - Attending - Attending Attestation Date/Time: 04/16/20 6451 I personally evaluated the patient and discussed the management with the team. I agree with the History, Examination, Assessment and Plan documented above with any addition or exceptions noted below. Supportive care for COVID PNA.
[2020-04-16] MEDS: Propofol 1,000 MG/100 ML VIAL IV PRN ×3 (06:07→18:31)
[2020-04-16] MEDS ORDERED: Docusate 100 MG CAP PO PRN (06:52)
[2020-04-16] MEDS: Polyethylene Glycol 3350 17 GM Packet PER TUBE SCH (07:57)
[2020-04-16] MEDS: Atorvastatin Calcium 20 MG TAB PO SCH (07:57)
[2020-04-16] MEDS: Colchicine 0.6 MG TAB PO SCH ×2 (07:57→21:03)
[2020-04-16] MEDS: Pantoprazole 40 MG VIAL IVP SCH (07:57)
[2020-04-16] MEDS: ADMIXTURE FEE SC SCH (07:58)
[2020-04-16] MEDS: FONDAPARINUX SODIUM SC SCH (07:58)
[2020-04-16] MEDS: Sodium Chloride 0.9% 1,000 ML IV SCH (08:00)
[2020-04-16] MEDS: Dexamethasone 6 MG in Sodium Chloride 0.9% 50 ML IVPB SCH ×2 (08:15→21:03)
[2020-04-16] MEDS ORDERED: Insulin Glargine 30 UNITS in Pre-Filled Syringe 1 EACH SC SCH (09:00)
--- NOTE | 2020-04-16 09:19 | RAD ---
CHEST 1 VIEW: Date: 04/16/2020 INDICATION: History of pneumonia. COMPARISON: Prior exam dated 04/15/2020. IMPRESSION: Gastric catheter, ET tube, and left subclavian central venous catheter is stable. Bilateral air space disease persists. No pneumothorax is evident. POS: BH
[2020-04-16] MEDS ORDERED: Fentanyl CADD 100 ML ONE (12:17)
--- NOTE | 2020-04-16 14:45 | PRG ---
DATE OF SERVICE: 04/16/2020 SUBJECTIVE: Nicholas Vergara remains in the prone position. OBJECTIVE: VITAL SIGNS: Heart rate is in the 60s, blood pressure 134/68. LUNGS: Remarkable for distant breath sounds. HEART: Regular rhythm. ABDOMEN: Soft. He is afebrile. Chest radiograph shows dense alveolar infiltrates bilaterally. LABORATORY DATA: White count 28.8, hemoglobin 12.5, platelets 84,000. Sodium 139, potassium 4.7, chloride 109, bicarb 25, BUN 43, creatinine 1.04. IMPRESSION: 1. Respiratory failure with COVID pneumonia. 2. Diabetes. 3. Renal insufficiency that has improved compared to yesterday with a creatinine today of 1.04; yesterday 1.33. He has some degree of chronic diabetic kidney disease. We will continue current care. Critical care time 30 min. Job ID: [id number] MTDD
[2020-04-17] MEDS: HumaLOG 300 UNITS/3 ML VIAL SC PRN ×6 (00:57→22:48)
[2020-04-17] MEDS: Propofol 1,000 MG/100 ML VIAL IV PRN ×5 (00:58→21:00)
[2020-04-17] MEDS: Vecuronium 10 MG VIAL IVP PRN ×6 (01:00→13:22)
[2020-04-17] MEDS: Albuterol 200 PUFF (6.7GM INHALER) INH SCH ×6 (03:04→22:28)
[2020-04-17 04:34] LABS: Band 10 % (5-11); Hemoglobin 12.3 g/dL (14.0-18.0); Lymphocytes 4 % (21-51); MDiff Complete? YES; Mean Corpuscular HGB CONC 31.5 g/dL (32.0-36.0); Mean Corpuscular Hemoglobin 33.6 pg (27.0-31.0); Mean Platelet Volume 9.5 fL (7.4-10.4); Monocytes 2 % (0-10); Neutrophil 84 % (42-75); Platelet Count 166 thou/uL (130-400); Platelet Morphology Comment Appears Adequate; Red Blood Cell (RBC) Count 3.65 mill/uL (4.70-6.10); White Blood Cell (WBC) Count 31.3 thou/uL (4.8-10.8)
[2020-04-17 04:35] LABS: Anion Gap 13 mmol/L (10-20); BUN (Urea Nitrogen) 50 mg/dL (8.4-25.7); Calc. Creatinine Clearance 74 mL/min (70-130); Calcium 7.6 mg/dL (7.8-10.44); Carbon Dioxide 25 mmol/L (23-31); Chloride 107 mmol/L (98-107); Glucose 330 mg/dL (83-110); Potassium 5.1 mmol/L (3.5-5.1); Sodium 140 mmol/L (136-145)
--- NOTE | 2020-04-17 05:50 | PDOC.FM ---
- Subjective Subjective: Patient remains intubated, sedated, and paralyzed in the CCU. Patient is currently proned, but will be changed to the supine position later this morning. Patient continues to receive paralytic medication every 3 hours. - Objective Vital Signs & Weight: Vital Signs (12 hours) Temp Pulse Pulse Ox 04/17/20 04:00 98.2 F 04/17/20 02:55 112 H 04/16/20 23:33 98.0 F 04/16/20 21:42 89 04/16/20 19:22 96 04/16/20 18:24 105 H Weight Admit Weight 83.461 kg Weight 83.9 kg Most Recent Monitor Data Heart Rate from ECG 105 NIBP 158/71 NIBP BP-Mean 100 Respiration from ECG 23 SpO2 95 I&O: 04/15/20 04/16/20 04/17/20 06:59 06:59 06:59 Intake Total 1492 2462 1349 Output Total 502 1365 1211 Balance 990 1097 138 Result Diagrams: 04/17/20 03:25 04/17/20 03:25 Phys Exam - Physical Examination intubated, sedated, paralyzed Neck: no JVD course breath sounds bilaterally tachycardic, regular rhythm Gastrointestinal: soft, positive bowel sounds Musculoskeletal: no edema, pulses present sedated, paralyzed Skin: no rash Dx/Plan - Plan Plan: 1. Neuro - patient intubated, sedated, and paralyzed with propofol, fentanyl, and vecuronium - will monitor patient's response to sedation vacations 2. CV - Ta, will continue cardiac monitoring - Indeterminate Troponin - 0.034, 0.046 - ekg: sinus tach, no ST changes - likely due to demand ischemia 3 .Resp - COVID PNA (first symptoms on 03/31/20, COVID + on 04/10), outside window for txt with remdesevir or conv plasma - IV dex 6 mg BID, colchicine, albuterol inhaler - patient had rapid decline on 04/14 from HFNC to BiPAP to intubation - Current Vent Settings: FiO2 65, TV 450, RR 23, PEEP 12 - ABG on 04/15: PH 7.25, pCO2 51.7, pO2 75.3; patient's RR rate was increased following ABG results - Pulmonology, Dr. Velez consulted - xray: stable 4. GI - dietary consulted, nepro tube feeds - daily miralax with prn colace 5. Renal/Hep - RERE, improving - BUN/CR: 47/1.33 > 43/1.04 > 50/1.01 - fluids at 70 mls/hr - will continue to monitor with daily CMP 6. ID - COVID PNA, see above - s/p rocephin (04/10-04/11) and azithro (04/10-04/12) for possible superimposed bacterial infection - - Leukocytosis: 31.3, likely 2/2 to stress response, steroids, and COVID; no other sings of infection at this time as patient is afebrile, will continue to monitor for other signs of infection as patient does have many sources of infection 7. Heme - Plt: 166, Lovenox DC'd on 04/15 and fondaparinux added due to thrombocytopenia and concern for HIT 8. Endo/Electrolytes - DM2: held home meds while in hospital, - continues to be hyperglycemic despite increasing basal insulin daily - will increase to 35 units and reach out to dietary regarding possible switch to glucerna - SSI, hypoglycemia protocol - Hyperkalemia: resolved after kayexalate; 5.1 on am BMP 9. Lines/Tubes: - Left Subclavian central line placed on 04/14 - Intubated on 04/14 with OG tube placed - Winkler placed on 04/14 - IV: Left AC 10. Abx: - s/p rocephin (04/10-04/11) and azithro (04/10-04/12) Dispo: continue medical management with steroids, colchicine, and ventilation in the ICU; will continue to monitor electrolytes and treat as needed Addendum - Attending - Attending Attestation Date/Time: 04/17/20 4513 I personally evaluated the patient and discussed the management with Dr. Perdue. I agree with the History, Examination, Assessment and Plan documented above with any addition or exceptions noted below. NAEON. Remains proned. Ventilator settings not escalating thus far. Continue supportive care.
[2020-04-17] MEDS: FONDAPARINUX SODIUM SC SCH (06:26)
[2020-04-17] MEDS: ADMIXTURE FEE SC SCH (06:26)
[2020-04-17] MEDS: Polyethylene Glycol 3350 17 GM Packet PER TUBE SCH (08:04)
[2020-04-17] MEDS: Atorvastatin Calcium 20 MG TAB PO SCH (08:04)
[2020-04-17] MEDS: Pantoprazole 40 MG VIAL IVP SCH (08:04)
--- NOTE | 2020-04-17 08:11 | RAD ---
CHEST 1 VIEW: Date: 04/17/2020 INDICATION: History of pneumonia. COMPARISON: Prior exam dated 04/16/2020. IMPRESSION: Bilateral pneumonia is stable. ET tube, gastric catheter, and left subclavian central venous catheter are stable. No pneumothorax is evident. POS: BH
[2020-04-17] MEDS: Dexamethasone 6 MG in Sodium Chloride 0.9% 50 ML IVPB SCH ×2 (08:35→20:59)
[2020-04-17] MEDS ORDERED: Insulin Glargine 35 UNITS in Pre-Filled Syringe 1 EACH SC SCH (09:00)
[2020-04-17] MEDS: Colchicine 0.6 MG TAB PO SCH ×2 (09:07→20:59)
[2020-04-17] MEDS ORDERED: niCARdipine 25 MG in Sodium Chloride 0.9% 250 ML 240 ML IVPB SCH (12:00)
[2020-04-17] MEDS ORDERED: Fentanyl CADD 100 ML ONE (12:33)
[2020-04-17] MEDS: Lorazepam 2 MG/ML VIAL SLOW IVP PRN (13:22)
--- NOTE | 2020-04-17 13:59 | PRG ---
DATE OF SERVICE: 04/17/2020 SUBJECTIVE: Nicholas Vergara remains in the prone position till 1 today. Hemodynamics have been stable. His blood pressure has been drifting up even with deep sedation. A Cardene drip will be started if he fails to have control of his blood pressure. OBJECTIVE: VITAL SIGNS: Heart rate is 111, currently 156/65, respiratory rates in the 20s. LUNGS: Remarkable for coarse and equal breath sounds. HEART: Regular rhythm. ABDOMEN: Soft. EXTREMITIES: Without edema. LABORATORY DATA: White count 31.3, hemoglobin 12.3, platelets 166. Sodium 140, potassium 5.1, chloride 107, bicarb 25, BUN 50, creatinine 1.01, glucose 330. IMPRESSION: 1. COVID pneumonia with respiratory failure. 2. Poorly-controlled diabetes. 3. Hypertension. 4. Obesity. PLAN: We will resume the supine position. Cardene will be added for blood pressure control. We will continue to follow. CRITICAL CARE TIME: 30 minutes. Job ID: [id number]
[2020-04-18] MEDS: HumaLOG 300 UNITS/3 ML VIAL SC PRN ×2 (00:55→05:37)
[2020-04-18] MEDS: Albuterol 200 PUFF (6.7GM INHALER) INH SCH ×6 (02:01→22:03)
[2020-04-18] MEDS: Propofol 1,000 MG/100 ML VIAL IV PRN ×5 (02:50→22:21)
[2020-04-18 03:50] LABS: #Lymphocytes 0.5 thou/uL (1.20-3.40); #Monocytes 0.9 thou/uL (0.11-0.59); #Neutrophils 15.1 thou/uL (1.40-6.50); %Basophils 0.1 % (0.0-1.0); %Eosinophils 0.2 % (0.0-10.0); %Lymphocytes 2.7 % (21.0-51.0); %Monocytes 5.3 % (0.0-10.0); %Neutrophils 91.6 % (42.0-75.0); Hemoglobin 10.6 g/dL (14.0-18.0); Mean Corpuscular HGB CONC 31.8 g/dL (32.0-36.0); Mean Corpuscular Hemoglobin 33.8 pg (27.0-31.0); Mean Platelet Volume 9.3 fL (7.4-10.4); Platelet Count 170 thou/uL (130-400); RBC Distribution Width 12.9 % (11.5-14.5); Red Blood Cell (RBC) Count 3.13 mill/uL (4.70-6.10); White Blood Cell (WBC) Count 16.5 thou/uL (4.8-10.8)
[2020-04-18 04:07] LABS: Anion Gap 12 mmol/L (10-20); BUN (Urea Nitrogen) 63 mg/dL (8.4-25.7); Calc. Creatinine Clearance 62 mL/min (70-130); Calcium 7.6 mg/dL (7.8-10.44); Carbon Dioxide 25 mmol/L (23-31); Chloride 111 mmol/L (98-107); Glucose 302 mg/dL (83-110); Potassium 5.6 mmol/L (3.5-5.1); Sodium 142 mmol/L (136-145)
[2020-04-18] MEDS: ADMIXTURE FEE SC SCH (05:38)
[2020-04-18] MEDS: FONDAPARINUX SODIUM SC SCH (05:38)
--- NOTE | 2020-04-18 08:26 | RAD ---
EXAM: Single view of the chest HISTORY: Pneumonia COMPARISON: 04/17/2020 FINDINGS: Single view of the chest shows a normal sized cardiomediastinal silhouette. Lines and tube s are unchanged in position. Stable scattered multifocal infiltrates are seen in the lungs. No acute osseous abnormality. IMPRESSION: Scattered multifocal infiltrates
[2020-04-18] MEDS: Pantoprazole 40 MG VIAL IVP SCH (08:29)
[2020-04-18] MEDS: Polyethylene Glycol 3350 17 GM Packet PER TUBE SCH (08:29)
[2020-04-18] MEDS: Atorvastatin Calcium 20 MG TAB PO SCH (08:30)
[2020-04-18] MEDS: Colchicine 0.6 MG TAB PO SCH ×2 (08:30→20:48)
--- NOTE | 2020-04-18 08:31 | PRG ---
DATE OF SERVICE: 04/18/2020 35 minutes critical care time. SUBJECTIVE: The patient remains intubated on mechanical ventilation. He is in a supine position. OBJECTIVE: VITAL SIGNS: His temperature is 98.1, pulse 61, blood pressure 114/53, sat 97%. 24-hour intake is 1920, output 1400. HEENT: Unremarkable. NECK: No JVD. LUNGS: Few crackles anteriorly. CARDIOVASCULAR: S1, S2 regular. ABDOMEN: Soft, nontender. EXTREMITIES: Trace edema. LABORATORY DATA: Sodium 142, potassium 5.6, chloride 111, CO2 of 25, BUN 63, creatinine 1.2, glucose 302. White blood cell count 16.5, hematocrit 33.3, platelet count 170. X-ray shows no difference. ASSESSMENT: 1. COVID-19 pneumonia. 2. Hyperkalemia. 3. Diabetes mellitus with blood sugars out of control. 4. Acute respiratory failure requiring mechanical ventilation. PLAN: I have switched him over to SIMV mode. I have decreased his FiO2 somewhat. We need to address his hyperkalemia. I will give him some Kayexalate. His hyperkalemia would also be improved by tighter control of his blood sugars. I will go ahead and change him over to NPH and dose him twice daily. Job ID: [id number]
[2020-04-18] MEDS: Dexamethasone 4 mg/ml Vial SLOW IVP SCH (08:34)
[2020-04-18] MEDS: NPH, Human Insulin Isophane 300 UNIT/3 ML VIAL SC SCH ×2 (09:17→20:49)
--- NOTE | 2020-04-18 09:24 | PDOC.FM ---
- Subjective Subjective: Patient intubated. - Objective MAR Reviewed: Yes Vital Signs & Weight: Vital Signs (12 hours) Temp Pulse 04/18/20 07:36 62 04/18/20 07:00 98.9 F 04/18/20 03:52 98.1 F 04/18/20 02:04 69 04/18/20 00:46 97.9 F 04/17/20 22:22 79 Weight Admit Weight 83.461 kg Weight 83.9 kg Most Recent Monitor Data Heart Rate from ECG 82 NIBP 105/54 NIBP BP-Mean 71 Respiration from ECG 18 SpO2 95 I&O: 04/17/20 04/18/20 04/19/20 06:59 06:59 06:59 Intake Total 1862 1920.8 120 Output Total 1536 1400 225 Balance 326 520.8 -105 Result Diagrams: 04/18/20 02:58 04/18/20 02:58 Phys Exam - Physical Examination Constitutional: NAD HEENT: PERRLA Respiratory: no wheezing Cardiovascular: no significant murmur Gastrointestinal: soft, no distention Musculoskeletal: no edema, pulses present Dx/Plan - Plan Plan: 1. Neuro - patient intubated, sedated, and paralyzed with propofol, fentanyl, and vecuronium - will monitor patient's response to sedation vacations 2. CV - cardiac monitoring - Indeterminate Troponin - likely due to demand ischemia 3 Resp - COVID PNA (first symptoms on 03/31/20, COVID + on 04/10), outside window for txt with remdesevir or conv plasma - IV dex 6 mg BID, colchicine, albuterol inhaler - 04/14 intubation - Current Vent Settings per pulm - Pulmonology, Dr. Velez consulted - xray: stable 4. GI - dietary consulted, - D/C nepro tube feeds as patient's sugars are out of control - start glucerna tube feeds. - NPH increased by Dr. Velez 5. Renal/Hep - RERE, improving - will continue to monitor with daily CMP 6. ID - COVID PNA, see above - s/p rocephin (04/10-04/11) and azithro (04/10-04/12) for possible superimposed bacterial infection - - Leukocytosis: improved 7. Heme - Plt: 166, Lovenox DC'd on 04/15 and fondaparinux added due to thrombocytopenia and concern for HIT 8. Endo/Electrolytes - DM2: held home meds while in hospital, -NPH BID - SSI, hypoglycemia protocol - Hyperkalemia: kayexylate again today 9. Lines/Tubes: - Left Subclavian central line placed on 04/14 - Intubated on 04/14 with OG tube placed - Winkler placed on 04/14 - IV: Left AC 10. Abx: - s/p rocephin (04/10-04/11) and azithro (04/10-04/12) Dispo: continue medical management with steroids, colchicine, and ventilation in the ICU; will continue to monitor electrolytes and treat as needed Addendum - Attending - Attending Attestation Date/Time: 04/18/20 6217 I personally evaluated the patient and discussed the management with Dr. Morales. I agree with the History, Examination, Assessment and Plan documented above with any addition or exceptions noted below.
[2020-04-18] MEDS ORDERED: Fentanyl CADD 100 ML ONE (10:34)
[2020-04-18 17:34] LABS: Anion Gap 11 mmol/L (10-20); BUN (Urea Nitrogen) 63 mg/dL (8.4-25.7); Calc. Creatinine Clearance 72 mL/min (70-130); Calcium 8.1 mg/dL (7.8-10.44); Carbon Dioxide 27 mmol/L (23-31); Chloride 112 mmol/L (98-107); Glucose 183 mg/dL (83-110); Potassium 5.2 mmol/L (3.5-5.1); Sodium 145 mmol/L (136-145)
[2020-04-19] MEDS: HumaLOG 300 UNITS/3 ML VIAL SC PRN ×3 (00:21→15:52)
[2020-04-19] MEDS: Propofol 1,000 MG/100 ML VIAL IV PRN ×7 (01:31→23:04)
[2020-04-19] MEDS: Albuterol 200 PUFF (6.7GM INHALER) INH SCH ×6 (02:14→22:08)
[2020-04-19 03:05] LABS: #Lymphocytes 0.8 thou/uL (1.20-3.40); #Monocytes 1.3 thou/uL (0.11-0.59); #Neutrophils 11.3 thou/uL (1.40-6.50); %Basophils 0.2 % (0.0-1.0); %Eosinophils 0.3 % (0.0-10.0); %Lymphocytes 5.6 % (21.0-51.0); %Monocytes 9.9 % (0.0-10.0); %Neutrophils 84.1 % (42.0-75.0); Hemoglobin 10.6 g/dL (14.0-18.0); Mean Corpuscular HGB CONC 32.6 g/dL (32.0-36.0); Mean Corpuscular Hemoglobin 34.5 pg (27.0-31.0); Mean Platelet Volume 8.8 fL (7.4-10.4); Platelet Count 217 thou/uL (130-400); RBC Distribution Width 12.8 % (11.5-14.5); Red Blood Cell (RBC) Count 3.06 mill/uL (4.70-6.10); White Blood Cell (WBC) Count 13.4 thou/uL (4.8-10.8)
[2020-04-19 03:50] LABS: Anion Gap 15 mmol/L (10-20); BUN (Urea Nitrogen) 58 mg/dL (8.4-25.7); Calc. Creatinine Clearance 86 mL/min (70-130); Calcium 7.9 mg/dL (7.8-10.44); Carbon Dioxide 27 mmol/L (23-31); Chloride 112 mmol/L (98-107); Glucose 162 mg/dL (83-110); Potassium 4.5 mmol/L (3.5-5.1); Sodium 149 mmol/L (136-145)
[2020-04-19] MEDS ORDERED: Fentanyl CADD 100 ML ONE ×2 (05:01→20:55)
--- NOTE | 2020-04-19 06:19 | PDOC.FM ---
- Subjective Subjective: Patient is intubated and sedated. Per RN, he will wake up and follow commands but then work of breathing causes him to desat so he continues need for sedation. - Objective MAR Reviewed: Yes Vital Signs & Weight: Vital Signs (12 hours) Temp Pulse BP Pulse Ox 04/19/20 04:00 97.6 F 04/19/20 02:14 70 04/19/20 00:00 98.1 F 04/18/20 22:03 94 151/64 H 04/18/20 19:46 98.1 F 95 04/18/20 18:25 72 117/64 Weight Admit Weight 83.461 kg Weight 83.9 kg Most Recent Monitor Data Heart Rate from ECG 85 NIBP 125/59 NIBP BP-Mean 81 Respiration from ECG 18 SpO2 92 I&O: 04/17/20 04/18/20 04/19/20 06:59 06:59 06:59 Intake Total 1862 1920.8 1917.5 Output Total 1536 1400 1635 Balance 326 520.8 282.5 Result Diagrams: 04/19/20 02:14 04/19/20 02:14 Phys Exam - Physical Examination Constitutional: NAD HEENT: PERRLA, moist MMs, sclera anicteric Respiratory: wheezing present (minimally at bases, rhonchi diffuse bilaterally) Cardiovascular: RRR, no significant murmur Gastrointestinal: soft, non-tender, no distention Musculoskeletal: edema present (diffuse in UE, nonpitting) Skin: no rash (small skin abrasion on left great toe) Dx/Plan - Plan Plan: 1. Neuro - patient intubated, sedated, and paralyzed - continue to monitor patient's response to sedation vacations 2. CV - cardiac monitoring - Indeterminate Troponin, likely due to demand ischemia 3 Resp - COVID PNA (first symptoms on 03/31/20, COVID + on 04/10), outside window for txt with remdesevir or conv plasma - IV dexamethasone , colchicine, albuterol inhaler - 2/4 intubation - Current Vent Settings per pulm. SIMV, Peep at 12, FiO2 46%, TV 450, RR 18, Peak pressure at 30. Not ready to wean since Peep is at 12. - Pulmonology, Dr. Velez consulted - xray: stable 4. GI - dietary consulted, continue carb consistent tube feeds - add free water bolus per tube 200mL/q6hr for hypernatremia secondary to free water deficits 5. Renal/Hep - RERE, improving - will continue to monitor with daily CMP 6. ID - COVID PNA, see above - s/p rocephin (04/10-04/11) and azithro (04/10-04/12) for possible superimposed bacterial infection - - Leukocytosis: improved 7. Heme - Plt: 166, Lovenox DC'd on 04/15 and fondaparinux added due to thrombocytopenia and concern for HIT 8. Endo/Electrolytes - DM2: held home meds while in hospital, - NPH BID - SSI, hypoglycemia protocol - Hyperkalemia: kayexylate given yesterday, improved - Free water deficit of 3.3 L today, free water boluses added to tube feeds. 9. Lines/Tubes: - Left Subclavian central line placed on 04/14 - Intubated on 04/14 with OG tube placed - Winkler placed on 04/14 - IV: Left AC 10. Abx: - s/p rocephin (04/10-04/11) and azithro (04/10-04/12) Dispo: continue medical management with steroids, colchicine, and ventilation in the ICU; will continue to monitor electrolytes and treat as needed Addendum - Attending - Attending Attestation Date/Time: 04/19/20 9111 I personally evaluated the patient and discussed the management with Dr. Morales. I agree with the History, Examination, Assessment and Plan documented above with any addition or exceptions noted below.
[2020-04-19] MEDS: ADMIXTURE FEE SC SCH (06:58)
[2020-04-19] MEDS: FONDAPARINUX SODIUM SC SCH (06:58)
--- NOTE | 2020-04-19 08:15 | RAD ---
EXAM: CHEST ONE VIEW HISTORY: Pneumonia. Follow-up evaluation. Intubated. COMPARISON: 04/18/2020 FINDINGS: Endotracheal tube, nasogastric tube, left-sided vascular catheter remain in place and unchanged in po sition. Stable increased interstitial and patchy parenchymal airspace opacities are again seen throughout the lungs bilaterally greater at each lung base. Findings are stable when compared to stud y on 04/18/2020 but do appear improved compared to study on 04/17/2020. No pleural effusion is seen. No other interval change. IMPRESSION: Stable chest with interstitial and patchy parenchymal airspace opacities within the lungs bilaterally worrisome for infectious process. However, there has been interval improvement when compared to study on 04/17/2020.
--- NOTE | 2020-04-19 08:27 | PRG ---
DATE OF SERVICE: SUBJECTIVE: The patient remains on mechanical ventilation for COVID-19 pneumonia. There have been no acute events overnight. OBJECTIVE: VITAL SIGNS: His temperature is 97.6 with no documented fever, pulse 79, blood pressure 114/56, and O2 saturation 94% to 96%. His current ventilator settings: SIMV rate 18, tidal volume 450, PEEP 12, pressure support 16, FiO2 of 44%. His intake for the last 24 hours has been 1917 mL, output 1635. HEENT: Unremarkable except for being intubated with endotracheal and orogastric tube. NECK: No JVD. LUNGS: Coarse breath sounds. CARDIOVASCULAR: S1, S2. Regular. ABDOMEN: Soft and nontender. EXTREMITIES: No clubbing or cyanosis. He has generalized trace edema throughout. LABORATORY DATA: Sodium 149, potassium 4.5, chloride 112, CO2 of 27, BUN 58, creatinine 0.8, glucose 162. White blood cell count 13.4, hematocrit 32, and platelet count 217. X-rays still look quite good, all things considered. ASSESSMENT: 1. COVID-19 pneumonia. 2. Improving hypoxic respiratory failure. 3. Resolved hyperkalemia. 4. Improved blood sugars. 5. Increased sodium indicative of free water deficit. PLAN: 1. Add free water tube feeds. 2. Not weanable yet because of his requirement for high amounts of PEEP. 3. Continue Arixtra for DVT prophylaxis. 4. Today is hospital day #9, hopefully we can get him extubated within the next 4 to 5 days. Job ID: [id number]
[2020-04-19] MEDS: NPH, Human Insulin Isophane 300 UNIT/3 ML VIAL SC SCH ×2 (09:30→20:41)
[2020-04-19] MEDS: Atorvastatin Calcium 20 MG TAB PO SCH (09:44)
[2020-04-19] MEDS: Pantoprazole 40 MG VIAL IVP SCH (09:45)
[2020-04-19] MEDS: Colchicine 0.6 MG TAB PO SCH ×2 (09:45→20:40)
[2020-04-19] MEDS: Dexamethasone 4 mg/ml Vial SLOW IVP SCH (09:45)
[2020-04-19] MEDS: Polyethylene Glycol 3350 17 GM Packet PER TUBE SCH (09:45)
[2020-04-20] MEDS: Albuterol 200 PUFF (6.7GM INHALER) INH SCH ×6 (02:40→22:32)
[2020-04-20 04:39] LABS: #Eosinphils 0.1 thou/uL (0.0-0.7); #Monocytes 0.9 thou/uL (0.11-0.59); #Neutrophils 10.1 thou/uL (1.40-6.50); %Basophils 0.1 % (0.0-1.0); %Eosinophils 1.1 % (0.0-10.0); %Lymphocytes 7.9 % (21.0-51.0); %Monocytes 7.3 % (0.0-10.0); %Neutrophils 83.6 % (42.0-75.0); Hemoglobin 10.8 g/dL (14.0-18.0); Mean Corpuscular HGB CONC 31.4 g/dL (32.0-36.0); Mean Corpuscular Hemoglobin 33.3 pg (27.0-31.0); Mean Platelet Volume 8.8 fL (7.4-10.4); Platelet Count 257 thou/uL (130-400); RBC Distribution Width 12.7 % (11.5-14.5); Red Blood Cell (RBC) Count 3.25 mill/uL (4.70-6.10); White Blood Cell (WBC) Count 12.1 thou/uL (4.8-10.8)
[2020-04-20 05:02] LABS: Anion Gap 11 mmol/L (10-20); BUN (Urea Nitrogen) 48 mg/dL (8.4-25.7); Calc. Creatinine Clearance 96 mL/min (70-130); Carbon Dioxide 29 mmol/L (23-31); Chloride 111 mmol/L (98-107); Glucose 95 mg/dL (83-110); Potassium 4.4 mmol/L (3.5-5.1); Sodium 147 mmol/L (136-145)
[2020-04-20] MEDS: Lorazepam 2 MG/ML VIAL SLOW IVP PRN (05:40)
[2020-04-20] MEDS: Propofol 1,000 MG/100 ML VIAL IV PRN ×3 (05:40→16:55)
[2020-04-20] MEDS: FONDAPARINUX SODIUM SC SCH (06:28)
[2020-04-20] MEDS: ADMIXTURE FEE SC SCH (06:28)
--- NOTE | 2020-04-20 07:46 | PDOC.FM ---
- Subjective Subjective: Intubated and sedated. Overnight had some desaturations after being turned, FiO2 increased. Otherwise, stable. - Objective MAR Reviewed: Yes Vital Signs & Weight: Vital Signs (12 hours) Temp Pulse BP 04/20/20 07:36 100 04/20/20 04:00 98.1 F 04/20/20 02:40 93 113/55 L 04/20/20 00:00 97.0 F L 04/19/20 22:08 103 H 154/63 H Weight Admit Weight 83.461 kg Weight 86.3 kg Most Recent Monitor Data Heart Rate from ECG 107 NIBP 112/56 NIBP BP-Mean 74 Respiration from ECG 18 SpO2 89 I&O: 04/19/20 04/20/20 04/21/20 06:59 06:59 06:59 Intake Total 1917.5 1676 Output Total 1635 1445 Balance 282.5 231 Result Diagrams: 04/20/20 03:43 04/20/20 03:43 Phys Exam - Physical Examination Constitutional: NAD HEENT: PERRLA Respiratory: no wheezing (coarse breath sounds) Cardiovascular: RRR, no significant murmur Gastrointestinal: soft, no distention Musculoskeletal: no edema, pulses present Skin: no rash Dx/Plan - Plan Plan: 1. Neuro - patient intubated, sedated, and paralyzed - continue to monitor patient's response to sedation vacations 2. CV - cardiac monitoring - Indeterminate Troponin, likely due to demand ischemia 3 Resp - COVID PNA (first symptoms on 03/31/20, COVID + on 04/10), outside window for txt with remdesevir or conv plasma - IV dexamethasone , colchicine, albuterol inhaler - 2/4 intubation - Current Vent Settings per pulm. SIMV, Peep at 14, FiO2 50%, TV 450, RR 18, Peak pressure at 30. Not ready to wean since Peep is at 14. Increased by Dr. Lolita bains today. - Avoid bathing as this causes patient to desat. - Pulmonology, Dr. Velez consulted - CXR: stable 4. GI - dietary consulted, continue carb consistent tube feeds - continue free water bolus per tube 200mL/q6hr for hypernatremia secondary to free water deficit 5. Renal/Hep - RERE, resolved 6. ID - COVID PNA, see above - s/p rocephin (1/31-04/11) and azithro (04/10-04/12) for possible superimposed bacterial infection - - Leukocytosis: improved 7. Heme - platelets stable since fondaparinux used 8. Endo/Electrolytes - DM2: held home meds while in hospital, - NPH BID - SSI, hypoglycemia protocol - Hyperkalemia: improved - Free water deficit: continue free water oral boluses 9. Lines/Tubes: - Left Subclavian central line placed on 04/14 - Intubated on 04/14 with OG tube placed - Winkler placed on 04/14 - IV: Left AC 10. Abx: - s/p rocephin (04/10-04/11) and azithro (04/10-04/12) Dispo: continue medical management with steroids, colchicine, and ventilation in the ICU; will continue to monitor electrolytes and treat as needed Addendum - Attending - Attending Attestation Date/Time: 04/20/20 8706 I personally evaluated the patient and discussed the management with Dr. Morales. I agree with the History, Examination, Assessment and Plan documented above with any addition or exceptions noted below.
--- NOTE | 2020-04-20 08:12 | PRG ---
DATE OF SERVICE: 04/20/2020 30 minutes critical time. SUBJECTIVE: Mr. Vergara remains intubated on mechanical ventilation. He has had some desaturation overnight. OBJECTIVE: VITAL SIGNS: Temperature 98.1, pulse 107, blood pressure 112/56, and O2 saturation running between 88% and 90%. 24-hour intake 1970 and output 1635. HEENT: Unchanged. NECK: No JVD. LUNGS: Coarse breath sounds. CARDIAC: S1 and S2. Regular. ABDOMEN: Soft. EXTREMITIES: Edematous. LABORATORY DATA: White blood cell count 12, hematocrit 34, and platelet count 257. Sodium 147, potassium 4.4, chloride 111, CO2 of 29, BUN 48, creatinine 0.8, glucose 95. His x-ray continues to show bilateral infiltrates. ASSESSMENT: 1. COVID-19 pneumonia. 2. Acute hypoxic respiratory failure requiring mechanical ventilation. PLAN: Not weanable at this time. I have increased his PEEP from 12 to 14. Continue anticoagulation with Arixtra since he seemed to develop thrombocytopenia on heparin type products. Continue Decadron and colchicine. Continue free water supplementation. Job ID: [id number]
[2020-04-20] MEDS: NPH, Human Insulin Isophane 300 UNIT/3 ML VIAL SC SCH ×4 (08:13→20:31)
[2020-04-20] MEDS: Colchicine 0.6 MG TAB PO SCH ×2 (08:13→20:30)
[2020-04-20] MEDS: Atorvastatin Calcium 20 MG TAB PO SCH (08:13)
[2020-04-20] MEDS: Dexamethasone 4 mg/ml Vial SLOW IVP SCH (08:13)
[2020-04-20] MEDS: Pantoprazole 40 MG VIAL IVP SCH (08:13)
[2020-04-20] MEDS: Polyethylene Glycol 3350 17 GM Packet PER TUBE SCH (08:13)
--- NOTE | 2020-04-20 09:01 | RAD ---
CHEST 1 VIEW: COMPARISON: 04/19/2020. HISTORY: Pneumonia. FINDINGS: Stable endotracheal tube, nasogastric tube, and left-sided vascular catheter. Normal cardiac silhouette. Multifocal interstitial and alveolar opacities suggesting multilobar pneumonia. IMPRESSION: No significant interval change. Stable multilobar pneumonia. POS: PPP
[2020-04-20] MEDS: Acetaminophen 325 MG TAB PO PRN (09:05)
[2020-04-20] MEDS ORDERED: Fentanyl CADD 100 ML ONE (11:29)
[2020-04-21] MEDS: Albuterol 200 PUFF (6.7GM INHALER) INH SCH ×6 (01:57→22:38)
[2020-04-21] MEDS ORDERED: Fentanyl CADD 100 ML ONE ×2 (02:59→18:42)
[2020-04-21] MEDS: Propofol 1,000 MG/100 ML VIAL IV PRN ×3 (04:54→15:39)
[2020-04-21 05:14] LABS: Anion Gap 14 mmol/L (10-20); BUN (Urea Nitrogen) 41 mg/dL (8.4-25.7); Calc. Creatinine Clearance 101 mL/min (70-130); Carbon Dioxide 27 mmol/L (23-31); Chloride 109 mmol/L (98-107); Glucose 80 mg/dL (83-110); Potassium 4.3 mmol/L (3.5-5.1); Sodium 146 mmol/L (136-145)
[2020-04-21 05:21] LABS: Band 6 % (5-11); Eosinophils 1 % (0-10); Hemoglobin 11.6 g/dL (14.0-18.0); Lymphocytes 17 % (21-51); MDiff Complete? YES; Mean Corpuscular HGB CONC 32.3 g/dL (32.0-36.0); Mean Corpuscular Hemoglobin 34.3 pg (27.0-31.0); Monocytes 3 % (0-10); Neutrophil 73 % (42-75); Platelet Count 321 thou/uL (130-400); Platelet Morphology Comment Appears Adequate; RBC Distribution Width 12.8 % (11.5-14.5); Red Blood Cell (RBC) Count 3.39 mill/uL (4.70-6.10); White Blood Cell (WBC) Count 19.1 thou/uL (4.8-10.8)
[2020-04-21] MEDS: Lorazepam 2 MG/ML VIAL SLOW IVP PRN (05:43)
[2020-04-21] MEDS: ADMIXTURE FEE SC SCH (06:17)
[2020-04-21] MEDS: FONDAPARINUX SODIUM SC SCH (06:17)
--- NOTE | 2020-04-21 06:30 | PDOC.FM ---
- Subjective Subjective: intubated, sedated, no acute events overnight. - Objective MAR Reviewed: Yes Vital Signs & Weight: Vital Signs (12 hours) Pulse Resp Pulse Ox 04/21/20 04:00 19 04/21/20 02:00 18 04/21/20 01:54 71 04/21/20 00:00 18 04/20/20 22:32 71 04/20/20 22:00 18 04/20/20 20:00 18 99 04/20/20 19:47 87 Weight Admit Weight 83.461 kg Weight 86.3 kg Most Recent Monitor Data Heart Rate from ECG 130 NIBP 165/76 NIBP BP-Mean 105 Respiration from ECG 17 SpO2 87 I&O: 04/19/20 04/20/20 04/21/20 06:59 06:59 06:59 Intake Total 1917.5 1676 1531 Output Total 1635 1445 1220 Balance 282.5 231 311 Result Diagrams: 04/22/20 03:15 04/22/20 03:15 Phys Exam - Physical Examination Constitutional: NAD Respiratory: no wheezing (coarse breath sounds b/l) Cardiovascular: no significant murmur (tachycardic rate, sinus rhythm) Gastrointestinal: soft, non-tender, no distention Musculoskeletal: no edema, pulses present Dx/Plan - Plan Plan: 1. Neuro - patient intubated, sedated, and paralyzed - continue to monitor patient's response to sedation vacations. Sedation vacation planned for today. 2. CV - cardiac monitoring 3 Resp - COVID PNA (first symptoms on 03/31/20, COVID + on 04/10), outside window for txt with remdesevir or conv plasma - IV dexamethasone , colchicine, albuterol inhaler - 2/4 intubation - Current Vent Settings per pulm. SIMV, Peep at 14, FiO2 45%, TV 450, RR 18, Peak pressure at 30. Not ready to wean since Peep is at 14. - Avoid bathing as this causes patient to desat. - Pulmonology, Dr. Velez consulted - CXR: stable 4. GI - dietary consulted, continue carb consistent tube feeds - continue free water bolus per tube 200mL/q6hr for hypernatremia secondary to free water deficit 5. Renal/Hep - RERE, resolved 6. ID - COVID PNA, see above - s/p rocephin (1/31-04/11) and azithro (04/10-04/12) for possible superimposed bacterial infection - - Leukocytosis: stable 7. Heme - platelets stable since fondaparinux used 8. Endo/Electrolytes - DM2: held home meds while in hospital, - NPH BID - SSI, hypoglycemia protocol - Hyperkalemia: improved - Free water deficit: continue free water oral boluses 9. Lines/Tubes: - Left Subclavian central line placed on 04/14 - Intubated on 04/14 with OG tube placed - Winkler placed on 04/14 - IV: Left AC 10. Abx: - s/p rocephin (04/10-04/11) and azithro (04/10-04/12) Dispo: continue medical management with steroids, colchicine, and ventilation in the ICU; will continue to monitor electrolytes and treat as needed. Dr. Velez has updated family today. Addendum - Attending - Attending Attestation Date/Time: 04/22/20 5825 I personally evaluated the patient and discussed the management with Dr. Morales yesterday. I agree with the History, Examination, Assessment and Plan documented above with any addition or exceptions noted below.
--- NOTE | 2020-04-21 08:00 | RAD ---
AP CHEST: INDICATION: Pneumonia followup. COMPARISON: 04/20/2020. FINDINGS/IMPRESSION: ET tube and central line unchanged. Hazy somewhat patchy infiltrates in the lower lung lizama again noted. Considering the difference sin exposure, no evidence of significant interval change. POS: AGW
--- NOTE | 2020-04-21 08:27 | PRG ---
DATE OF SERVICE: 04/21/2020 SUBJECTIVE: Mr. Vergara remains in the CCU on mechanical ventilation for COVID-19 pneumonia. There has been no acute events overnight. OBJECTIVE: VITAL SIGNS: His temperature is 98.6 with T-max of 100.0, pulse generally in the 70s and 80s, blood pressure 125/56. His O2 saturation currently running 94% on 45% oxygen. His current ventilator parameters, SIMV rate 18, tidal volume 450, PEEP 14, pressure support 16. HEENT: Unchanged except for being orally intubated. He is suctioned on his aspiration, followed by the cough was constant flow, so I have turned that to intermittent. NECK: No adenopathy or JVD. CHEST: Coarse rhonchi. CARDIOVASCULAR: S1, S2. Regular. ABDOMEN: Soft. EXTREMITIES: Trace edema throughout. LABORATORY DATA: White blood cell count 19, hematocrit 36, platelet count 321. Sodium 146, potassium 4.3, chloride 109, CO2 of 27, BUN 41, creatinine 0.7, glucose 80. The patient remains on enteral tube feeds at goal. ASSESSMENT: 1. Coronavirus disease 2019 pneumonia. 2. Acute hypoxic respiratory failure requiring mechanical ventilation. PLAN: 1. Continue enteral tube feeds. 2. Continue steroids, anticoagulation. 3. Insulin was reduced yesterday because of hypoglycemia. 4. I will call his and communicate with her. 5. Slowly decrease FiO2, then begin decreasing PEEP. Job ID: [id number]
[2020-04-21] MEDS: Atorvastatin Calcium 20 MG TAB PO SCH (09:05)
[2020-04-21] MEDS: Pantoprazole 40 MG VIAL IVP SCH (09:05)
[2020-04-21] MEDS: Dexamethasone 4 mg/ml Vial SLOW IVP SCH (09:05)
[2020-04-21] MEDS: Polyethylene Glycol 3350 17 GM Packet PER TUBE SCH (09:05)
[2020-04-21] MEDS: Colchicine 0.6 MG TAB PO SCH ×2 (09:05→20:19)
[2020-04-21] MEDS: NPH, Human Insulin Isophane 300 UNIT/3 ML VIAL SC SCH ×2 (10:07→20:20)
[2020-04-21] MEDS: Acetaminophen 325 MG TAB PO PRN (10:18)
[2020-04-21] MEDS: Fentanyl CADD 100 ML IV SCH (18:53)
[2020-04-21] MEDS ORDERED: Fentanyl BOLUS 250 ML IVPB PRN (19:00)
[2020-04-22] MEDS: Albuterol 200 PUFF (6.7GM INHALER) INH SCH ×6 (01:49→22:18)
[2020-04-22 03:58] LABS: #Eosinphils 0.1 thou/uL (0.0-0.7); #Lymphocytes 1.5 thou/uL (1.20-3.40); #Monocytes 0.6 thou/uL (0.11-0.59); #Neutrophils 11.5 thou/uL (1.40-6.50); %Basophils 0.1 % (0.0-1.0); %Lymphocytes 10.7 % (21.0-51.0); %Monocytes 4.7 % (0.0-10.0); %Neutrophils 83.5 % (42.0-75.0); Hemoglobin 11.2 g/dL (14.0-18.0); Mean Corpuscular HGB CONC 32.4 g/dL (32.0-36.0); Mean Corpuscular Hemoglobin 34.3 pg (27.0-31.0); Mean Platelet Volume 8.8 fL (7.4-10.4); Platelet Count 285 thou/uL (130-400); RBC Distribution Width 12.5 % (11.5-14.5); Red Blood Cell (RBC) Count 3.27 mill/uL (4.70-6.10); White Blood Cell (WBC) Count 13.7 thou/uL (4.8-10.8)
[2020-04-22 04:10] LABS: Anion Gap 11 mmol/L (10-20); BUN (Urea Nitrogen) 38 mg/dL (8.4-25.7); Calc. Creatinine Clearance 104 mL/min (70-130); Calcium 8.2 mg/dL (7.8-10.44); Carbon Dioxide 29 mmol/L (23-31); Chloride 107 mmol/L (98-107); Glucose 89 mg/dL (83-110); Potassium 4.3 mmol/L (3.5-5.1); Sodium 143 mmol/L (136-145)
[2020-04-22] MEDS: Propofol 1,000 MG/100 ML VIAL IV PRN ×4 (05:50→23:52)
--- NOTE | 2020-04-22 06:18 | PDOC.FM ---
- Subjective Subjective: Patient increased on FiO2 overnight. Otherwise stable, no acute events. He is sedated. - Objective MAR Reviewed: Yes Vital Signs & Weight: Vital Signs (12 hours) Temp Pulse Resp Pulse Ox 04/22/20 02:00 16 04/22/20 01:50 72 04/22/20 00:00 18 04/21/20 22:37 75 04/21/20 22:00 18 04/21/20 20:00 98.9 F 18 97 04/21/20 18:56 109 H Weight Admit Weight 83.461 kg Weight 86.2 kg Most Recent Monitor Data Heart Rate from ECG 107 NIBP 134/61 NIBP BP-Mean 85 Respiration from ECG 18 SpO2 96 I&O: 04/20/20 04/21/20 04/22/20 06:59 06:59 06:59 Intake Total 1676 2429.9 1705.9 Output Total 1445 1270 1320 Balance 231 1159.9 385.9 Result Diagrams: 04/22/20 03:15 04/22/20 03:15 Radiology Reviewed by me: Yes Phys Exam - Physical Examination Constitutional: NAD Respiratory: no wheezing (coarse sounds bilaterally) Cardiovascular: RRR, no significant murmur Gastrointestinal: soft, no distention Skin: no rash Dx/Plan - Plan Plan: 1. Neuro - patient intubated, sedated, and paralyzed - continue to monitor patient's response to sedation vacations. 2. CV - cardiac monitoring 3 Resp - COVID PNA (first symptoms on 03/31/20, COVID + on 04/10), outside window for txt with remdesevir or conv plasma - IV dexamethasone , colchicine, albuterol inhaler - 2/4 intubation - Current Vent Settings per pulm. SIMV, Peep at 14, FiO2 55%, TV 450, RR 18, Pressure support at 16. Peak pressure at 30. Not ready to wean. - Avoid bathing as this causes patient to desat. - Pulmonology, Dr. Velez consulted - CXR: stable, possible some change however could be due to change in exposure. 4. GI - dietary consulted, continue carb consistent tube feeds - continue free water bolus per tube 200mL/q6hr for hypernatremia secondary to free water deficit 5. Renal/Hep - RERE, resolved 6. ID - COVID PNA, see above - s/p rocephin (04/10-04/11) and azithro (04/10-04/12) for possible superimposed bacterial infection - - Leukocytosis: stable 7. Heme - platelets stable since fondaparinux used 8. Endo/Electrolytes - DM2: held home meds while in hospital, - NPH 5 BID due to hypoglycemia - SSI, hypoglycemia protocol - Hyperkalemia: improved - Free water deficit/hypernatremia: improved 9. Lines/Tubes: - Left Subclavian central line placed on 04/14 - Intubated on 04/14 with OG tube placed - Winkler placed on 04/14 - IV: Left AC 10. Abx: - s/p rocephin (04/10-04/11) and azithro (04/10-04/12) Dispo: continue medical management with steroids, colchicine, and ventilation in the ICU; will continue to monitor electrolytes and treat as needed. Addendum - Attending - Attending Attestation Date/Time: 04/22/20 1640 I personally evaluated the patient and discussed the management with Dr. Morlaes. I agree with the History, Examination, Assessment and Plan documented above with any addition or exceptions noted below.
[2020-04-22] MEDS: FONDAPARINUX SODIUM SC SCH (06:30)
[2020-04-22] MEDS: ADMIXTURE FEE SC SCH (06:30)
[2020-04-22 07:03] LABS: Actual Bicarbonate (HCO3a) 28.8 mEq/L (22-28); Base Excess (BEa) 2.3 mEq/L (-2.0 to +3.0); CO2 Tension 52.9 mmHg (35.0-45.0); Calcium, Ionized (arterial) 1.18 mmol/L (1.12-1.30); Carboxyhemoglobin (COHb) 1.2 gm% (0.0-3.0); Hemoglobin (Hb) 12.7 g/dL (14.0-18.0); Potassium - ABG Lab 3.98 mmol/L (3.70-5.30); pH, Arterial 7.35 (7.35-7.45)
[2020-04-22 07:27] LABS: O2 Tension (PaO2), arterial 57.8 mmHg (> 70.0); Puncture Site RRA
[2020-04-22 07:28] LABS: ALV-art Gradient 268.225 mmHg (0-20)
[2020-04-22] MEDS: Dexamethasone 4 mg/ml Vial SLOW IVP SCH (08:40)
[2020-04-22] MEDS: Atorvastatin Calcium 20 MG TAB PO SCH (08:40)
[2020-04-22] MEDS: Polyethylene Glycol 3350 17 GM Packet PER TUBE SCH (08:40)
[2020-04-22] MEDS: Colchicine 0.6 MG TAB PO SCH ×2 (08:41→20:08)
[2020-04-22] MEDS: Pantoprazole 40 MG GRANULES PACKET PER TUBE SCH (08:41)
[2020-04-22] MEDS: NPH, Human Insulin Isophane 300 UNIT/3 ML VIAL SC SCH ×2 (08:43→20:09)
[2020-04-22] MEDS ORDERED: Fentanyl CADD 100 ML ONE (09:25)
--- NOTE | 2020-04-22 09:27 | RAD ---
PORTABLE CHEST: Date: 04/22/2020 HISTORY: Pneumonia with CCU follow-up. COMPARISON: 04/21/2020. FINDINGS: ET tube and central line unchanged. There are hazy bilateral interstitial and alveolar infiltrates with areas of more confluent consolida tion in the lower lungs. IMPRESSION: No significant interval change from yesterday. POS: AGW
--- NOTE | 2020-04-22 10:01 | PRG ---
DATE OF SERVICE: 04/22/2020 30 minutes of critical care time. SUBJECTIVE: The patient remains intubated on mechanical ventilation. There have been no acute changes overnight. OBJECTIVE: VITAL SIGNS: Temperature 98.9, pulse 101, blood pressure 133/68, O2 saturation 98%. 24-hour intake 2703, output 1445. HEENT: Unremarkable. NECK: No JVD. LUNGS: Coarse rhonchi. CARDIOVASCULAR: S1 and S2. Regular. ABDOMEN: Soft. EXTREMITIES: Edematous. LABORATORY DATA: ABG; pH 7.35, pCO2 of 52, pO2 of 57 on SIMV rate 18, tidal volume 450, PEEP 14, FiO2 of 55%. White blood cell count 13.79, hematocrit 34.6, and platelet count 285. Sodium 140, potassium 4.3, BUN 38, creatinine 0.7. ASSESSMENT: 1. COVID-19 pneumonia with acute hypoxic respiratory failure requiring mechanical ventilation. 2. Mildly worst chest x-ray compared to yesterday. PLAN: Continue supportive care with tube feeds, anticoagulation, steroids, and colchicine. I do not see much changes need to be made today. Job ID: [id number]
[2020-04-22] MEDS ORDERED: Lactated Ringer's 1,000 ML IV SCH (12:45)
[2020-04-22] MEDS: Lactated Ringer's 1,000 ML IV SCH ×2 (13:03→20:13)
[2020-04-22] MEDS: Vecuronium 10 MG VIAL IVP PRN (23:52)
[2020-04-23] MEDS ORDERED: Fentanyl CADD 100 ML ONE ×2 (00:06→14:23)
[2020-04-23] MEDS: Albuterol 200 PUFF (6.7GM INHALER) INH SCH ×2 (02:47→07:40)
[2020-04-23 05:00] LABS: Anion Gap 12 mmol/L (10-20); BUN (Urea Nitrogen) 28 mg/dL (8.4-25.7); Calc. Creatinine Clearance 107 mL/min (70-130); Calcium 7.9 mg/dL (7.8-10.44); Carbon Dioxide 29 mmol/L (23-31); Chloride 107 mmol/L (98-107); Glucose 82 mg/dL (83-110); Potassium 4.5 mmol/L (3.5-5.1); Sodium 143 mmol/L (136-145)
[2020-04-23 05:41] LABS: Band 5 % (5-11); Eosinophils 1 % (0-10); Hemoglobin 10.3 g/dL (14.0-18.0); Lymphocytes 3 % (21-51); MDiff Complete? YES; Macrocytosis SLIGHT = 6-15 cells (100X) (0-5/hpf); Mean Platelet Volume 8.5 fL (7.4-10.4); Monocytes 8 % (0-10); Neutrophil 82 % (42-75); Platelet Count 230 thou/uL (130-400); RBC Distribution Width 12.2 % (11.5-14.5); Reactive Lymphocytes 1 % (0-10); Red Blood Cell (RBC) Count 3.03 mill/uL (4.70-6.10); White Blood Cell (WBC) Count 21.6 thou/uL (4.8-10.8)
[2020-04-23] MEDS: Lactated Ringer's 1,000 ML IV SCH ×3 (06:41→20:16)
[2020-04-23] MEDS: ADMIXTURE FEE SC SCH (06:42)
[2020-04-23] MEDS: FONDAPARINUX SODIUM SC SCH (06:42)
[2020-04-23] MEDS: Propofol 1,000 MG/100 ML VIAL IV PRN ×4 (07:04→22:46)
[2020-04-23 07:14] LABS: Actual Bicarbonate (HCO3a) 30.4 mEq/L (22-28); Base Excess (BEa) 2.5 mEq/L (-2.0 to +3.0); Calcium, Ionized (arterial) 1.18 mmol/L (1.12-1.30); Carboxyhemoglobin (COHb) 1.1 gm% (0.0-3.0); Hemoglobin (Hb) 13.1 g/dL (14.0-18.0); O2 Tension (PaO2), arterial 61.1 mmHg (> 70.0)
[2020-04-23 07:37] LABS: CO2 Tension 62.6 mmHg (35.0-45.0)
[2020-04-23 07:38] LABS: Puncture Site RBA
--- NOTE | 2020-04-23 07:43 | PDOC.FM ---
- Subjective Subjective: Pt had hypoxia overnight to 82%, FiO2 was increased once again now at 65%. Otherwise no acute events. ROS unobtainable, pt intubated - Objective Vital Signs & Weight: Vital Signs (12 hours) Temp Pulse Resp BP Pulse Ox 04/23/20 06:00 99.2 F 16 04/23/20 04:00 18 04/23/20 02:47 116 H 153/65 H 04/23/20 02:00 14 04/23/20 00:00 18 04/22/20 22:18 108 H 151/72 H 04/22/20 22:00 22 H 04/22/20 20:00 99.6 F 21 H 90 L Weight Admit Weight 83.461 kg Weight 86.2 kg Most Recent Monitor Data Heart Rate from ECG 114 NIBP 158/66 NIBP BP-Mean 96 Respiration from ECG 18 SpO2 92 I&O: 04/22/20 04/23/20 04/24/20 06:59 06:59 06:59 Intake Total 2703.4 4966.3 Output Total 1445 1465 Balance 1258.4 3501.3 Result Diagrams: 04/23/20 03:45 04/23/20 03:45 Phys Exam - Physical Examination sedated HEENT: moist MMs, sclera anicteric Neck: no JVD, supple bilat diffuse inspiratory crackles tachycardic, regular Gastrointestinal: soft, no distention Musculoskeletal: no edema, pulses present sedated Skin: no rash, normal turgor Dx/Plan - Plan Plan: 1. Neuro - patient intubated, sedated, and paralyzed - continue to monitor patient's response to sedation vacations. 2. CV - tachycardic this morning in 110s, appears to be sinus tachy on monitor. Will continue to monitor 3 Resp - COVID PNA (first symptoms on 03/31/20, COVID + on 04/10), outside window for txt with remdesevir or conv plasma - IV dexamethasone , colchicine, albuterol inhaler - 2/4 intubation - Current Vent Settings per pulm. SIMV, Peep at 14, FiO2 65%, TV 450, RR 18, Pressure support at 16. Peak pressure at 30. Not ready to wean. - Avoid bathing as this causes patient to desat. - Pulmonology consulted, appreciate recs - CXR: slight worsening - ABG yesterday also shows worsening 4. GI - dietary consulted, continue carb consistent tube feeds - continue free water bolus per tube 200mL/q6hr for hypernatremia secondary to free water deficit 5. Renal/Hep - RERE, resolved 6. ID - COVID PNA, see above - s/p rocephin (04/10-04/11) and azithro (04/10-04/12) for possible superimposed bacterial infection - - Leukocytosis: stable 7. Heme - platelets stable since fondaparinux used 8. Endo/Electrolytes - DM2: held home meds while in hospital, - NPH 5 BID due to hypoglycemia - SSI, hypoglycemia protocol - Hyperkalemia: improved - Free water deficit/hypernatremia: improved 9. Lines/Tubes: - Left Subclavian central line placed on 04/14 - Intubated on 04/14 with OG tube placed - Winkler placed on 04/14 - IV: Left AC 10. Abx: - s/p rocephin (04/10-04/11) and azithro (04/10-04/12) Dispo: poor prognosis. Continue medical management with steroids, colchicine, and ventilation in the ICU; will continue to monitor electrolytes and treat as needed.
[2020-04-23] MEDS: Dexamethasone 4 mg/ml Vial SLOW IVP SCH (08:48)
[2020-04-23] MEDS: Polyethylene Glycol 3350 17 GM Packet PER TUBE SCH (08:48)
[2020-04-23] MEDS: Pantoprazole 40 MG GRANULES PACKET PER TUBE SCH (08:48)
[2020-04-23] MEDS: Atorvastatin Calcium 20 MG TAB PO SCH (08:49)
[2020-04-23] MEDS: NPH, Human Insulin Isophane 300 UNIT/3 ML VIAL SC SCH ×2 (08:49→20:17)
[2020-04-23] MEDS: Colchicine 0.6 MG TAB PO SCH ×2 (08:49→20:16)
[2020-04-23] MEDS: Acetaminophen 325 MG TAB PO PRN (09:47)
--- NOTE | 2020-04-23 09:48 | PDOC.BRONC ---
Bronchoscopy Procedure Note - Procedure Date: 04/23/20 Time: 09:15 - PreProcedure Diagnosis: Respiratory failure, COVID pneumonia, high peak airway pressures with copious secretions - PostProcedure Diagnosis: ETT at anjali when at 25 at lips Anjali sharp Mucous plug thick and tenacious aspirated from the distal trache Right main stem edema RUL fishmouth appearance with edema RLL secretions washed LMS patent and erythematous with edema LLL friable with easy bleeding with suctioning, edema NIRAJ edema - Anesthesia Anesthesia: lidocaine jelly - Description Patient tolerated procedure: other (desaturations with 2.8 tiffanie FOB allowed to return to baseline during procedure of therapeutic aspiration) Complications: local bleeding (left lower lobe) Procedure in Details: Informed consent was obtained via phone to spouse. Time out was performed. RN and RT at bedside. The patient was sedated with propofol, VS were normal at the initiation of procedure. On ventilator, changes to PEEP from 14 to 10 and FiO2 to 100%. ETT held by RT, ky jelly applied to bronchoscope. Upon entry there were copious secretions, and mucoid tenacious sputum obstructed the distal trachea which was situated at the anjali. The ETT was pulled back. the patient was allowed to rest and sats returned from 77 to 93% quickly during the procedure. Bronchoscope was readvanced via the ETT, ETT was replaced at 23 cm at the lips and inspection , washing and therapeutic aspiration was performed of the right upper which was fishmouth in appearance, RML, and RLL. The patient was rested again and bronchoscope readvanced after saturations improved to 92%, the left main stem, NIRAJ were edematous, the LLL was friable edematous and erythematous. Washings and therapeutic aspiration were performed . Vent settings readjusted post procedure. Spouse was called post procedure.
--- NOTE | 2020-04-23 10:56 | PRG ---
DATE OF SERVICE: 04/23/2020 Please see the note from Dr. Nicholas Staton, for which I agree. The patient was seen, evaluated, discussed, and examined with the residents by bedside. This gentleman is now 14 days in the hospital with COVID pneumonia. Despite ventilator support, his FiO2 is needed to be increased and his O2 sats have been down, but Pulmonary actually bronch'd him this morning and apparently had some mucus plugs removed, maybe is doing a little bit better, hopefully will now. Otherwise, everything else has been pretty stable and now no real changes or improvement unfortunately. So continuing supportive care, TPN, insulin, colchicine, etc. Job ID: [id number]
--- NOTE | 2020-04-23 12:11 | RAD ---
SINGLE VIEW CHEST: Date: 04/23/2020 COMPARISON: 04/22/2020. HISTORY: Pneumonia. FINDINGS: Single view of the chest shows normal sized cardiomediastinal silhouette. Endotracheal tube and centr al venous catheter are unchanged in position. There are scattered multifocal infiltrates in the lungs . These may have slightly worsened compared to the prior examination. IMPRESSION: Possible slight worsening of multifocal infiltrates. POS: EAA
[2020-04-23] MEDS: Budesonide 0.5 MG/2 ML NEB NEB SCH (18:18)
--- NOTE | 2020-04-23 19:20 | PDOC.PULCC ---
CCU Progress Note: Subj/Obj - Subjective Date: 04/23/20 Time: 07:45 Subjective: on ventilator and sedated, - Objective Allergies/Adverse Reactions: Allergies Allergy/AdvReac Type Severity Reaction Status Date / Time No Known Drug Allergies Allergy Verified 04/11/20 00:53 Medications: Current Medications Acetaminophen (Acetaminophen 325 Mg Tab) 650 mg PO Q4H PRN PRN Reason: Headache/Fever/Mild Pain (1-3) Last Admin: 04/23/20 09:47 Dose: 650 mg Documented by: Albuterol/Ipratropium (Ipratropium/Albuterol Sulfate 3 Ml Neb) 3 ml NEB [id number] [facility] Last Admin: 04/23/20 18:18 Dose: 3 ml Documented by: Atorvastatin Calcium (Atorvastatin Calcium 20 Mg Tab) 20 mg PO DAILY [facility] Last Admin: 04/23/20 08:49 Dose: 20 mg Documented by: Budesonide (Budesonide 0.5 Mg/2 Ml Neb) 0.5 mg NEB BID-RT [facility] Last Admin: 04/23/20 18:18 Dose: 0.5 mg Documented by: Colchicine (Colchicine 0.6 Mg Tab) 0.6 mg PO BID [facility] Last Admin: 04/23/20 08:49 Dose: 0.6 mg Documented by: Dexamethasone (Dexamethasone 4 Mg/Ml Vial) 4 mg SLOW IVP DAILY [facility] Last Admin: 04/23/20 08:48 Dose: 4 mg Documented by: Dextrose/Water (Dextrose 50% Abboject 50 Ml Syringe) 25 gm SLOW IVP PRN PRN PRN Reason: Hypoglycemia Last Admin: 04/21/20 05:43 Dose: 25 gm Documented by: Docusate Sodium (Docusate 100 Mg Cap) 100 mg PO DAILYPRN PRN PRN Reason: Constipation Glucagon (Glucagon 1 Mg/Ml Vial) 1 mg IM PRN PRN PRN Reason: Hypoglycemia Dextrose/Water (D5w) 1,000 mls @ 0 mls/hr IV .Q0M PRN PRN Reason: Hypoglycemia Fondaparinux 5 mg/ (Miscellaneous Medication) 0.4 mls @ 0 mls/hr SC DAILY@0600 [facility] Last Admin: 04/23/20 06:42 Dose: 0.4 mls Documented by: Nicardipine HCl 25 mg/ Sodium (Chloride) 250 mls @ 0 mls/hr IVPB INF BING; Protocol Last Admin: 04/17/20 12:09 Dose: 250 mls Documented by: Fentanyl (Fentanyl Cadd) 100 mls @ 0 mls/hr IV INF BING; Protocol Stop: 05/21/20 19:00 Last Admin: 04/21/20 18:53 Dose: 100 mls Documented by: Fentanyl Citrate (Fentanyl Bolus) 250 mls @ 0 mls/hr IVPB PRN PRN PRN Reason: Breakthrough pain/agitation Stop: 05/21/20 19:00 Lactated Ringer's (Lactated Ringer's) 1,000 mls @ 125 mls/hr IV .Q8H BING Last Admin: 04/23/20 11:56 Dose: 1,000 mls Documented by: Insulin Human Lispro (Humalog 300 Units/3 Ml Vial) 0 units SC .BEDTIME SLIDING SC PRN PRN Reason: Bedtime Correctional Scale Last Admin: 04/16/20 00:08 Dose: 2 unit Documented by: Insulin Human Lispro (Humalog 300 Units/3 Ml Vial) 0 units SC .AGGRESSIVE SLIDING PRN PRN Reason: Aggressive Correctional Scale Last Admin: 04/19/20 15:52 Dose: 3 unit Documented by: Insulin Human NPH (Nph, Human Insulin Isophane 300 Unit/3 Ml Vial) 5 unit SC BID BING Last Admin: 04/23/20 08:49 Dose: 5 unit Documented by: Lorazepam (Lorazepam 2 Mg/Ml Vial) 2 mg SLOW IVP Q1H PRN PRN Reason: Breakthrough agitation Stop: 05/14/20 11:00 Last Admin: 04/21/20 05:43 Dose: 2 mg Documented by: Miscellaneous Medication (Ventilator Sedation Protocol 1 Each) 1 each FS ASDIR BING Miscellaneous Medication (Electrolyte Replacement Protocol) 0 each FS ASDIR PRN; Protocol PRN Reason: ELECTROLYTE REPLACEMENT Morphine Sulfate (Morphine 2 Mg/Ml Vial) 2 mg SLOW IVP Q1H PRN PRN Reason: Breakthrough Pain/Agitation Stop: 05/14/20 11:00 Discontinue Previous Narcotic Pain Medications And Benzodiazepines 1 each FS .ONE BING Stop: 05/14/20 11:00 Ondansetron HCl (Ondansetron Odt 4 Mg Tab) 4 mg PO Q6H PRN PRN Reason: Nausea/Vomiting Ondansetron HCl (Ondansetron Pf 4 Mg/2 Ml Vial) 4 mg IVP Q6H PRN PRN Reason: Nausea/Vomiting Pantoprazole Sodium (Pantoprazole 40 Mg Granules Packet) 40 mg PER TUBE DAILY [facility] Last Admin: 04/23/20 08:48 Dose: 40 mg Documented by: Polyethylene Glycol (Polyethylene Glycol 3350 17 Gm Packet) 17 gm PER TUBE DAILY [facility] Last Admin: 04/23/20 08:48 Dose: 17 gm Documented by: Propofol (Propofol 1,000 Mg/100 Ml Vial) 1,000 mg IV INF PRN; Protocol PRN Reason: TO ACHIEVE GOAL RASS Stop: 05/14/20 11:00 Last Admin: 04/23/20 17:38 Dose: 1,000 mg Documented by: Propofol (Propofol Bolus 1,000 Mg/100 Ml Vial) 20 mg IV Q5MIN PRN PRN Reason: BREAKTHROUGH AGITATION Stop: 05/14/20 11:00 Sodium Chloride (Flush - Normal Saline 10 Ml Syringe) 10 ml IVF Q12HR [facility] Last Admin: 04/23/20 09:47 Dose: 10 ml Documented by: Sodium Chloride (Flush - Normal Saline 10 Ml Syringe) 10 ml IVF PRN PRN PRN Reason: Saline Flush Vecuronium [place] (Vecuronium 10 Mg Vial) 10 mg IVP Q30MIN PRN PRN Reason: Agitation Last Admin: 04/22/20 23:52 Dose: 10 mg Documented by: Vital Signs and I&O: Vital Signs Temp 98.7 F 04/23/20 16:00 Pulse 85 04/23/20 18:18 Resp 20 04/23/20 18:00 BP 153/65 H 04/23/20 02:47 Pulse Ox 93 L 04/23/20 13:50 Intake & Output 04/23/20 04/23/20 04/24/20 06:59 18:59 06:59 Intake Total 2829.3 2255 Output Total 540 750 Balance 2289.3 1505 Weight 190 lb 0.615 oz 190 lb 0.615 oz Intake: Intake, IV Amount 2009.3 1803 Fentanyl CADD 100 ml @ 45.3 Per Protocol IV INF [facility] Rx#:[id number] Lactated Ringer's 1,000 1617 1475 ml @ 125 mls/hr IV .Q8H [facility] Rx#:[id number] Propofol 1000 mg (See 217 210 Protocol) IV INF PRN Rx#: [id number] Sodium Chloride 0.9% 10 120 118 ml IVF PRN PRN Rx#: [id number] Vecuronium [place] 10 mg 10 IVP Q30MIN PRN Rx#: [id number] Tube Feeding 20 192 Tube Irrigant 800 260 Output: Output, Winkler 540 750 Other: Voiding Method Indwelling Catheter Indwelling Catheter Spontaneous Breathing Test: not done, other (high peak pressures on vent with copious secretions) CCU Progress Note: Exam - Physical Exam Deviation from normal: sedated on mechanical vent HEENT: oral pharynx no lesions Deviation from normal: oral ETT and gastric tubes 7.5 ETT, 25 at lips Respiratory: clear to auscultation anteriorly, rhonchi Focused Respiratory Location: decreased breath sounds: Right, Left, Upper, Lower, rhonchi: Right, Left, Lower Gastrointestinal: soft, non-tender Musculoskeletal: pulses present, edema present Deviation from normal: sedated Skin: no rash, cap refill <2 seconds Deviation from normal: edema CCU Progress Note: Data - Labs Result Diagrams: 04/23/20 03:45 04/23/20 03:45 Lab results: Laboratory Results 04/21/20 04/22/20 04/22/20 20:24 03:15 03:15 WBC 13.7 H RBC 3.27 L Hgb 11.2 L Hct 34.6 L MCV 106.0 H MCH 34.3 H MCHC 32.4 RDW 12.5 Plt Count 285 MPV 8.8 Neutrophils % 83.5 H Neutrophils % (Manual) Band Neuts % (Manual) Lymphocytes % 10.7 L Lymphocytes % (Manual) Reactive Lymphs % Monocytes % 4.7 Monocytes % (Manual) Eosinophils % 1.0 Eosinophils % (Manual) Basophils % 0.1 Neutrophils # 11.5 H Lymphocytes # 1.5 Monocytes # 0.6 H Eosinophils # 0.1 Basophils # 0.0 Macrocytosis Specimen Type Puncture Site Bicarbonate Actual ABG pH ABG pCO2 ABG pO2 ABG O2 Sat (Measured) ABG O2 Content ABG Base Excess ABG Hematocrit ABG Hemoglobin ABG Oxyhemoglobin ABG Carboxyhemoglobin ABG Methemoglobin ABG Deoxyhemoglobin Gómez Test A-a O2 Gradient Ionized Calcium Mode of Support % Minute Volume Mechanical Rate Inspired O2 Tidal Volume Pressure Support PEEP or CPAP Sodium 143 Potassium 4.3 Chloride 107 Carbon Dioxide 29 Anion Gap 11 BUN 38 H Creatinine 0.74 Estimated GFR (MDRD) Greater than 90 Glucose 89 POC Glucose 104 H Calcium 8.2 04/22/20 04/22/20 04/22/20 03:18 06:55 08:53 WBC RBC Hgb Hct MCV MCH MCHC RDW Plt Count MPV Neutrophils % Neutrophils % (Manual) Band Neuts % (Manual) Lymphocytes % Lymphocytes % (Manual) Reactive Lymphs % Monocytes % Monocytes % (Manual) Eosinophils % Eosinophils % (Manual) Basophils % Neutrophils # Lymphocytes # Monocytes # Eosinophils # Basophils # Macrocytosis Specimen Type ARTERIAL Puncture Site RRA Bicarbonate Actual 28.8 H ABG pH 7.35 ABG pCO2 52.9 H ABG pO2 57.8 L* ABG O2 Sat (Measured) 87.9 L ABG O2 Content 15.5 L ABG Base Excess 2.3 ABG Hematocrit 37.0 L ABG Hemoglobin 12.7 L ABG Oxyhemoglobin 86.6 L ABG Carboxyhemoglobin 1.2 ABG Methemoglobin 0.30 ABG Deoxyhemoglobin 11.9 H Gómez Test POSITIVE A-a O2 Gradient 268.225 H Ionized Calcium 1.18 Mode of Support SIMV % Minute Volume 8.4 Mechanical Rate 18 Inspired O2 55 Tidal Volume 450 Pressure Support 16 PEEP or CPAP 14.0 Sodium 140 Potassium 3.98 Chloride 109 H Carbon Dioxide Anion Gap BUN Creatinine Estimated GFR (MDRD) Glucose POC Glucose 74 81 Calcium 04/22/20 04/22/20 04/22/20 11:25 16:17 20:30 WBC RBC Hgb Hct MCV MCH MCHC RDW Plt Count MPV Neutrophils % Neutrophils % (Manual) Band Neuts % (Manual) Lymphocytes % Lymphocytes % (Manual) Reactive Lymphs % Monocytes % Monocytes % (Manual) Eosinophils % Eosinophils % (Manual) Basophils % Neutrophils # Lymphocytes # Monocytes # Eosinophils # Basophils # Macrocytosis Specimen Type Puncture Site Bicarbonate Actual ABG pH ABG pCO2 ABG pO2 ABG O2 Sat (Measured) ABG O2 Content ABG Base Excess ABG Hematocrit ABG Hemoglobin ABG Oxyhemoglobin ABG Carboxyhemoglobin ABG Methemoglobin ABG Deoxyhemoglobin Gómez Test A-a O2 Gradient Ionized Calcium Mode of Support % Minute Volume Mechanical Rate Inspired O2 Tidal Volume Pressure Support PEEP or CPAP Sodium Potassium Chloride Carbon Dioxide Anion Gap BUN Creatinine Estimated GFR (MDRD) Glucose POC Glucose 113 H 121 H 136 H Calcium 04/22/20 04/23/20 04/23/20 23:25 03:35 03:45 WBC RBC Hgb Hct MCV MCH MCHC RDW Plt Count MPV Neutrophils % Neutrophils % (Manual) Band Neuts % (Manual) Lymphocytes % Lymphocytes % (Manual) Reactive Lymphs % Monocytes % Monocytes % (Manual) Eosinophils % Eosinophils % (Manual) Basophils % Neutrophils # Lymphocytes # Monocytes # Eosinophils # Basophils # Macrocytosis Specimen Type Puncture Site Bicarbonate Actual ABG pH ABG pCO2 ABG pO2 ABG O2 Sat (Measured) ABG O2 Content ABG Base Excess ABG Hematocrit ABG Hemoglobin ABG Oxyhemoglobin ABG Carboxyhemoglobin ABG Methemoglobin ABG Deoxyhemoglobin Gómez Test A-a O2 Gradient Ionized Calcium Mode of Support % Minute Volume Mechanical Rate Inspired O2 Tidal Volume Pressure Support PEEP or CPAP Sodium 143 Potassium 4.5 Chloride 107 Carbon Dioxide 29 Anion Gap 12 BUN 28 H Creatinine 0.72 Estimated GFR (MDRD) Greater than 90 Glucose 82 L POC Glucose 97 91 Calcium 7.9 04/23/20 04/23/20 04/23/20 03:45 07:07 08:59 WBC 21.6 H RBC 3.03 L Hgb 10.3 L Hct 32.2 L MCV 106.0 H MCH 34.0 H MCHC 32.0 RDW 12.2 Plt Count 230 MPV 8.5 Neutrophils % Neutrophils % (Manual) 82 H Band Neuts % (Manual) 5 Lymphocytes % Lymphocytes % (Manual) 3 L Reactive Lymphs % 1 Monocytes % Monocytes % (Manual) 8 Eosinophils % Eosinophils % (Manual) 1 Basophils % Neutrophils # Lymphocytes # Monocytes # Eosinophils # Basophils # Macrocytosis SLIGHT = 6-15 cells Specimen Type ARTERIAL Puncture Site RBA Bicarbonate Actual 30.4 H ABG pH 7.30 L ABG pCO2 62.6 H* ABG pO2 61.1 ABG O2 Sat (Measured) 89.6 L ABG O2 Content 16.3 L ABG Base Excess 2.5 ABG Hematocrit 39.0 L ABG Hemoglobin 13.1 L ABG Oxyhemoglobin 88.3 L ABG Carboxyhemoglobin 1.1 ABG Methemoglobin 0.30 ABG Deoxyhemoglobin 10.3 H Gómez Test Not Reportable A-a O2 Gradient 324.100 H Ionized Calcium 1.18 Mode of Support SIMV % Minute Volume 8.1 Mechanical Rate 18 Inspired O2 65 Tidal Volume 450 Pressure Support 16 PEEP or CPAP 14.0 Sodium 138 Potassium 4.20 Chloride 108 H Carbon Dioxide Anion Gap BUN Creatinine Estimated GFR (MDRD) Glucose POC Glucose 90 Calcium 04/23/20 04/23/20 12:04 16:15 WBC RBC Hgb Hct MCV MCH MCHC RDW Plt Count MPV Neutrophils % Neutrophils % (Manual) Band Neuts % (Manual) Lymphocytes % Lymphocytes % (Manual) Reactive Lymphs % Monocytes % Monocytes % (Manual) Eosinophils % Eosinophils % (Manual) Basophils % Neutrophils # Lymphocytes # Monocytes # Eosinophils # Basophils # Macrocytosis Specimen Type Puncture Site Bicarbonate Actual ABG pH ABG pCO2 ABG pO2 ABG O2 Sat (Measured) ABG O2 Content ABG Base Excess ABG Hematocrit ABG Hemoglobin ABG Oxyhemoglobin ABG Carboxyhemoglobin ABG Methemoglobin ABG Deoxyhemoglobin Gómez Test A-a O2 Gradient Ionized Calcium Mode of Support % Minute Volume Mechanical Rate Inspired O2 Tidal Volume Pressure Support PEEP or CPAP Sodium Potassium Chloride Carbon Dioxide Anion Gap BUN Creatinine Estimated GFR (MDRD) Glucose POC Glucose 92 118 H Calcium - ABG Interpretation ABG Results: ABG pH 7.30 (7.35-7.45) L 04/23/20 07:07 ABG pCO2 62.6 mmHg (35.0-45.0) H* 04/23/20 07:07 ABG Base Excess 2.5 mEq/L (-2.0 to +3.0) 04/23/20 07:07 CCU Progress Note: A/P - Plan Plan: Assess Acute hypoxemic resp failure with increasing peak pressures, secretions COVID pneumonia leukocytosis / sepsis possible nosocomial infections Continue with mechanical ventilator weaning Cultures blood sputum urine Cefepime and Vanco (dose per pharm) continue other treatments dvt and stress ulcer ppx
[2020-04-23] MEDS: Cefepime 2 GM in Sodium Chloride 0.9% 100 ML IVPB SCH (20:16)
[2020-04-23] MEDS ORDERED: Cefepime 2 GM in Sodium Chloride 0.9% 100 ML IVPB SCH (21:00)
[2020-04-23] MEDS ORDERED: VANCOMYCIN 2 GRAM/400 ML BAG 2 GM in Premix Bag 1 BAG IVPB SCH (21:00)
[2020-04-24] MEDS ORDERED: Fentanyl CADD 100 ML ONE ×2 (04:17→17:51)
[2020-04-24] MEDS: Fentanyl CADD 100 ML IV SCH (04:20)
[2020-04-24] MEDS: Lactated Ringer's 1,000 ML IV SCH (05:44)
[2020-04-24] MEDS: FONDAPARINUX SODIUM SC SCH (05:45)
[2020-04-24] MEDS: ADMIXTURE FEE SC SCH (05:45)
[2020-04-24 05:54] LABS: Anion Gap 12 mmol/L (10-20); BUN (Urea Nitrogen) 36 mg/dL (8.4-25.7); Calc. Creatinine Clearance 104 mL/min (70-130); Calcium 7.7 mg/dL (7.8-10.44); Carbon Dioxide 26 mmol/L (23-31); Chloride 105 mmol/L (98-107); Glucose 115 mg/dL (83-110); Potassium 4.2 mmol/L (3.5-5.1); Sodium 139 mmol/L (136-145)
[2020-04-24 07:15] LABS: Band 10 % (5-11); Hemoglobin 9.2 g/dL (14.0-18.0); Lymphocytes 3 % (21-51); MDiff Complete? YES; Mean Corpuscular HGB CONC 32.2 g/dL (32.0-36.0); Mean Corpuscular Hemoglobin 34.2 pg (27.0-31.0); Mean Platelet Volume 8.9 fL (7.4-10.4); Monocytes 2 % (0-10); Neutrophil 85 % (42-75); Platelet Count 169 thou/uL (130-400); RBC Distribution Width 12.2 % (11.5-14.5); Red Blood Cell (RBC) Count 2.69 mill/uL (4.70-6.10)
--- NOTE | 2020-04-24 07:42 | PDOC.FM ---
- Subjective Subjective: no acute changes overnight. Pt had bronchoscopy yesterday. - Objective Vital Signs & Weight: Vital Signs (12 hours) Temp Pulse Resp BP Pulse Ox 04/24/20 06:00 98.9 F 04/24/20 05:58 20 04/24/20 04:00 20 04/24/20 02:19 73 103/54 L 04/24/20 02:00 19 04/23/20 22:14 74 100/55 L 04/23/20 22:00 20 04/23/20 20:00 20 96 Weight Admit Weight 83.461 kg Weight 86 kg Most Recent Monitor Data Heart Rate from ECG 86 NIBP 116/54 NIBP BP-Mean 74 Respiration from ECG 19 SpO2 92 I&O: 04/23/20 04/24/20 04/25/20 06:59 06:59 06:59 Intake Total 4966.3 5931.8 Output Total 1465 1170 Balance 3501.3 4761.8 Result Diagrams: 04/24/20 05:00 04/24/20 05:00 Phys Exam - Physical Examination Constitutional: NAD HEENT: moist MMs Neck: no JVD, supple Respiratory: no wheezing bilat diffuse course breath soundds Cardiovascular: RRR, no significant murmur Gastrointestinal: soft, no distention Musculoskeletal: no edema sedated Skin: no rash, normal turgor Dx/Plan - Plan Plan: 1. Neuro - patient intubated, sedated, and paralyzed - continue to monitor patient's response to sedation vacations. 2. CV - NSR, monitored 3 Resp - COVID PNA (first symptoms on 03/31/20, COVID + on 04/10), outside window for txt with remdesevir or conv plasma - IV dexamethasone , colchicine, albuterol inhaler - 04/14 intubation - Current Vent Settings per pulm. SIMV, FiO2 50%, TV 450, RR 18. Peak pressure at 30. Not ready to wean. - Avoid bathing as this causes patient to desat. - Pulmonology consulted, appreciate recs - s/p bronchoscopy 04/23 4. GI - dietary consulted, continue carb consistent tube feeds - continue free water bolus per tube 200mL/q6hr for hypernatremia secondary to free water deficit 5. Renal/Hep - RERE, resolved 6. ID - COVID PNA, see above - s/p rocephin (04/10-04/11) and azithro (04/10-04/12) for possible superimposed bacterial infection - Leukocytosis: increased * cefepime and vanc started 04/23 * BCx, UCx, and Sputum Cx drawn 04/23 7. Heme - platelets stable since fondaparinux used 8. Endo/Electrolytes - DM2: held home meds while in hospital, - NPH 5 BID due to hypoglycemia - SSI, hypoglycemia protocol - Hyperkalemia: improved - Free water deficit/hypernatremia: improved 9. Lines/Tubes: - Left Subclavian central line placed on 04/14 - Intubated on 04/14 with OG tube placed - Winkler placed on 04/14 - IV: Left AC 10. Abx: - cefepime and vanc started 04/23 - s/p rocephin (04/10-04/11) and azithro (04/10-04/12) Dispo: poor prognosis. Continue medical management with steroids, colchicine, and ventilation in the ICU; will continue to monitor electrolytes and treat as needed.
[2020-04-24 07:45] LABS: Actual Bicarbonate (HCO3a) 27.7 mEq/L (22-28); Base Excess (BEa) 1.2 mEq/L (-2.0 to +3.0); CO2 Tension 53.3 mmHg (35.0-45.0); Calcium, Ionized (arterial) 1.15 mmol/L (1.12-1.30); Carboxyhemoglobin (COHb) 0.8 gm% (0.0-3.0); Hemoglobin (Hb) 9.5 g/dL (14.0-18.0); Potassium - ABG Lab 4.05 mmol/L (3.70-5.30); pH, Arterial 7.33 (7.35-7.45)
[2020-04-24] MEDS: Budesonide 0.5 MG/2 ML NEB NEB SCH ×2 (08:04→18:19)
[2020-04-24 08:07] LABS: O2 Tension (PaO2), arterial 53.1 mmHg (> 70.0); Puncture Site RBA
[2020-04-24 08:08] LABS: ALV-art Gradient 236.775 mmHg (0-20)
[2020-04-24] MEDS: NPH, Human Insulin Isophane 300 UNIT/3 ML VIAL SC SCH ×2 (08:10→20:24)
[2020-04-24] MEDS: Atorvastatin Calcium 20 MG TAB PO SCH (08:11)
[2020-04-24] MEDS: Polyethylene Glycol 3350 17 GM Packet PER TUBE SCH (08:11)
[2020-04-24] MEDS: VANCOMYCIN 1.25 GM/250 ML BAG 1.25 GM in Premix Bag 1 BAG IVPB SCH ×2 (08:11→20:23)
[2020-04-24] MEDS: Colchicine 0.6 MG TAB PO SCH ×2 (08:11→20:23)
[2020-04-24] MEDS: Cefepime 2 GM in Sodium Chloride 0.9% 100 ML IVPB SCH ×2 (08:11→19:54)
[2020-04-24] MEDS: Pantoprazole 40 MG GRANULES PACKET PER TUBE SCH (08:11)
[2020-04-24] MEDS: Dexamethasone 4 mg/ml Vial SLOW IVP SCH (08:11)
[2020-04-24] MEDS: Propofol 1,000 MG/100 ML VIAL IV PRN ×2 (10:09→15:33)
--- NOTE | 2020-04-24 10:11 | PRG ---
DATE OF SERVICE: 04/24/2020 Please see the note from Dr. Staton, for which I agree. The patient was seen, evaluated, discussed, and examined with the residents by bedside. No major changes in this gentleman. Oxygen level was doing a little bit better yesterday. He had a bronchoscopy and had a pretty big mucous plug and is now needing a little bit less oxygen after that plug was cleared. His cefepime and vancomycin were started because of worry for infection. He is still on ventilator, stable. Lungs, coarse throughout, but he is oxygenating fairly well. His white count was elevated the reason why we put him on the antibiotics, so continue supportive care in this COVID pneumonia patient. Job ID: [id number]
--- NOTE | 2020-04-24 11:23 | RAD ---
PORTABLE CHEST ONE VIEW: HISTORY: Follow up pneumonia. FINDINGS/IMPRESSION: Stable life support tubes. Extensive bilateral stable alveolar, interstitial and ground glass opacity changes, evidence for extensive bilateral pneumonia. Continued short-term followup. POS: RRE
--- NOTE | 2020-04-24 13:16 | PDOC.PULCC ---
CCU Progress Note: Subj/Obj - Subjective Date: 04/24/20 Time: 08:10 Subjective: post bronchoscopy 04/23 with no identified organism on stain, has increased WBC to 20 today with 85% segs. Sedated on ACVC, 50% Narrative: unable to obtain ROS on vent and sedated - Objective Allergies/Adverse Reactions: Allergies Allergy/AdvReac Type Severity Reaction Status Date / Time No Known Drug Allergies Allergy Verified 04/11/20 00:53 Medications: Current Medications Acetaminophen (Acetaminophen 325 Mg Tab) 650 mg PO Q4H PRN PRN Reason: Headache/Fever/Mild Pain (1-3) Last Admin: 04/23/20 09:47 Dose: 650 mg Documented by: Albuterol/Ipratropium (Ipratropium/Albuterol Sulfate 3 Ml Neb) 3 ml NEB [id number] [facility] Last Admin: 04/24/20 10:50 Dose: 3 ml Documented by: Atorvastatin Calcium (Atorvastatin Calcium 20 Mg Tab) 20 mg PO DAILY [facility] Last Admin: 04/24/20 08:11 Dose: 20 mg Documented by: Budesonide (Budesonide 0.5 Mg/2 Ml Neb) 0.5 mg NEB BID-RT BING Last Admin: 04/24/20 08:04 Dose: 0.5 mg Documented by: Colchicine (Colchicine 0.6 Mg Tab) 0.6 mg PO BID [facility] Last Admin: 04/24/20 08:11 Dose: 0.6 mg Documented by: Dexamethasone (Dexamethasone 4 Mg/Ml Vial) 4 mg SLOW IVP DAILY [facility] Last Admin: 04/24/20 08:11 Dose: 4 mg Documented by: Dextrose/Water (Dextrose 50% Abboject 50 Ml Syringe) 25 gm SLOW IVP PRN PRN PRN Reason: Hypoglycemia Last Admin: 04/21/20 05:43 Dose: 25 gm Documented by: Docusate Sodium (Docusate 100 Mg Cap) 100 mg PO DAILYPRN PRN PRN Reason: Constipation Glucagon (Glucagon 1 Mg/Ml Vial) 1 mg IM PRN PRN PRN Reason: Hypoglycemia Dextrose/Water (D5w) 1,000 mls @ 0 mls/hr IV .Q0M PRN PRN Reason: Hypoglycemia Fondaparinux 5 mg/ (Miscellaneous Medication) 0.4 mls @ 0 mls/hr SC DAILY@0600 [facility] Last Admin: 04/24/20 05:45 Dose: 0.4 mls Documented by: Nicardipine HCl 25 mg/ Sodium (Chloride) 250 mls @ 0 mls/hr IVPB INF [facility]; Protocol Last Admin: 04/17/20 12:09 Dose: 250 mls Documented by: Fentanyl (Fentanyl Cadd) 100 mls @ 0 mls/hr IV INF [facility]; Protocol Stop: 05/21/20 19:00 Last Admin: 04/24/20 04:20 Dose: 100 mls Documented by: Fentanyl Citrate (Fentanyl Bolus) 250 mls @ 0 mls/hr IVPB PRN PRN PRN Reason: Breakthrough pain/agitation Stop: 05/21/20 19:00 Cefepime HCl 2 gm/ Sodium (Chloride) 100 mls @ 200 mls/hr IVPB 0800,1999 [facility] Last Admin: 04/24/20 08:11 Dose: 100 mls Documented by: Vancomycin HCl 1.25 gm/ Device 250 mls @ 166.667 mls/hr IVPB Q12HR [facility] Last Admin: 04/24/20 08:11 Dose: 250 mls Documented by: Insulin Human Lispro (Humalog 300 Units/3 Ml Vial) 0 units SC .BEDTIME SLIDING SC PRN PRN Reason: Bedtime Correctional Scale Last Admin: 04/16/20 00:08 Dose: 2 unit Documented by: Insulin Human Lispro (Humalog 300 Units/3 Ml Vial) 0 units SC .AGGRESSIVE SLIDING PRN PRN Reason: Aggressive Correctional Scale Last Admin: 04/19/20 15:52 Dose: 3 unit Documented by: Insulin Human NPH (Nph, Human Insulin Isophane 300 Unit/3 Ml Vial) 5 unit SC BID [facility] Last Admin: 04/24/20 08:10 Dose: 5 unit Documented by: Miscellaneous Medication (Ventilator Sedation Protocol 1 Each) 1 each FS ASDIR [facility] Miscellaneous Medication (Electrolyte Replacement Protocol) 0 each FS ASDIR PRN; Protocol PRN Reason: ELECTROLYTE REPLACEMENT Miscellaneous Medication (Pharmacy To Dose Vancomycin) 1 each IVPB PRN PRN PRN Reason: Pharmacy to dose Discontinue Previous Narcotic Pain Medications And Benzodiazepines 1 each FS .ONE [facility] Stop: 05/14/20 11:00 Ondansetron HCl (Ondansetron Odt 4 Mg Tab) 4 mg PO Q6H PRN PRN Reason: Nausea/Vomiting Ondansetron HCl (Ondansetron Pf 4 Mg/2 Ml Vial) 4 mg IVP Q6H PRN PRN Reason: Nausea/Vomiting Pantoprazole Sodium (Pantoprazole 40 Mg Granules Packet) 40 mg PER TUBE DAILY [facility] Last Admin: 04/24/20 08:11 Dose: 40 mg Documented by: Polyethylene Glycol (Polyethylene Glycol 3350 17 Gm Packet) 17 gm PER TUBE DAILY [facility] Last Admin: 04/24/20 08:11 Dose: 17 gm Documented by: Propofol (Propofol 1,000 Mg/100 Ml Vial) 1,000 mg IV INF PRN; Protocol PRN Reason: TO ACHIEVE GOAL RASS Stop: 05/14/20 11:00 Last Admin: 04/24/20 10:09 Dose: 1,000 mg Documented by: Propofol (Propofol Bolus 1,000 Mg/100 Ml Vial) 20 mg IV Q5MIN PRN PRN Reason: BREAKTHROUGH AGITATION Stop: 05/14/20 11:00 Sodium Chloride (Flush - Normal Saline 10 Ml Syringe) 10 ml IVF Q12HR [facility] Last Admin: 04/24/20 08:13 Dose: 10 ml Documented by: Sodium Chloride (Flush - Normal Saline 10 Ml Syringe) 10 ml IVF PRN PRN PRN Reason: Saline Flush Vecuronium [place] (Vecuronium 10 Mg Vial) 10 mg IVP Q30MIN PRN PRN Reason: Agitation Last Admin: 04/22/20 23:52 Dose: 10 mg Documented by: EMMANUEL Reviewed: Yes Vital Signs and I&O: Vital Signs Temp 98.0 F 04/24/20 12:00 Pulse 82 04/24/20 10:51 Resp 19 04/24/20 12:00 BP 103/54 L 04/24/20 02:19 Pulse Ox 88 L 04/24/20 10:50 Intake & Output 04/23/20 04/24/20 04/24/20 18:59 06:59 18:59 Intake Total 2255 3676.8 580 Output Total 750 420 550 Balance 1505 3256.8 30 Weight 190 lb 0.615 oz 189 lb 9.561 oz Intake: Intake, IV Amount 1803 2236.8 350 Cefepime 2 gm In Sodium 100 100 Chloride 0.9% 100 ml @ 200 mls/hr IVPB 0800,1999 [facility] Rx#:[id number] Fentanyl CADD 100 ml @ 87.8 Per Protocol IV INF [facility] Rx#:[id number] Lactated Ringer's 1,000 1475 1338 ml @ 125 mls/hr IV .Q8H [facility] Rx#:[id number] Propofol 1000 mg (See 210 191 Protocol) IV INF PRN Rx#: [id number] Sodium Chloride 0.9% 10 118 120 ml IVF PRN PRN Rx#: [id number] Vancomycin 2 Gram/400 ml 400 250 Bag 2 gm In Premix Bag 1 bag @ 250 mls/hr IVPB 2100 [facility] Rx#:[id number] Tube Feeding 192 750 Tube Irrigant 260 690 230 Output: Output, Winkler 750 420 550 Other: Voiding Method Indwelling Catheter Indwelling Catheter Indwelling Catheter Vent Setting: ACVC 420/20/+10-/50% CCU Progress Note: Exam - Physical Exam HEENT: oral pharynx no lesions Respiratory: rales, rhonchi Gastrointestinal: soft, non-tender Musculoskeletal: no edema Deviation from normal: sedated to +3 Skin: no rash, normal turgor CCU Progress Note: Data - Labs Result Diagrams: 04/24/20 05:00 04/24/20 05:00 Lab results: Laboratory Results 04/22/20 04/22/20 04/22/20 16:17 20:30 23:25 WBC RBC Hgb Hct MCV MCH MCHC RDW Plt Count MPV Neutrophils % (Manual) Band Neuts % (Manual) Lymphocytes % (Manual) Reactive Lymphs % Monocytes % (Manual) Eosinophils % (Manual) Macrocytosis Specimen Type Puncture Site Bicarbonate Actual ABG pH ABG pCO2 ABG pO2 ABG O2 Sat (Measured) ABG O2 Content ABG Base Excess ABG Hematocrit ABG Hemoglobin ABG Oxyhemoglobin ABG Carboxyhemoglobin ABG Methemoglobin ABG Deoxyhemoglobin Gómez Test A-a O2 Gradient Ionized Calcium Mode of Support % Minute Volume Mechanical Rate Inspired O2 Tidal Volume Pressure Support PEEP or CPAP Sodium Potassium Chloride Carbon Dioxide Anion Gap BUN Creatinine Estimated GFR (MDRD) Glucose POC Glucose 121 H 136 H 97 Calcium 04/23/20 04/23/20 04/23/20 03:35 03:45 03:45 WBC 21.6 H RBC 3.03 L Hgb 10.3 L Hct 32.2 L MCV 106.0 H MCH 34.0 H MCHC 32.0 RDW 12.2 Plt Count 230 MPV 8.5 Neutrophils % (Manual) 82 H Band Neuts % (Manual) 5 Lymphocytes % (Manual) 3 L Reactive Lymphs % 1 Monocytes % (Manual) 8 Eosinophils % (Manual) 1 Macrocytosis SLIGHT = 6-15 cells Specimen Type Puncture Site Bicarbonate Actual ABG pH ABG pCO2 ABG pO2 ABG O2 Sat (Measured) ABG O2 Content ABG Base Excess ABG Hematocrit ABG Hemoglobin ABG Oxyhemoglobin ABG Carboxyhemoglobin ABG Methemoglobin ABG Deoxyhemoglobin Gómez Test A-a O2 Gradient Ionized Calcium Mode of Support % Minute Volume Mechanical Rate Inspired O2 Tidal Volume Pressure Support PEEP or CPAP Sodium 143 Potassium 4.5 Chloride 107 Carbon Dioxide 29 Anion Gap 12 BUN 28 H Creatinine 0.72 Estimated GFR (MDRD) Greater than 90 Glucose 82 L POC Glucose 91 Calcium 7.9 04/23/20 04/23/20 04/23/20 07:07 08:59 12:04 WBC RBC Hgb Hct MCV MCH MCHC RDW Plt Count MPV Neutrophils % (Manual) Band Neuts % (Manual) Lymphocytes % (Manual) Reactive Lymphs % Monocytes % (Manual) Eosinophils % (Manual) Macrocytosis Specimen Type ARTERIAL Puncture Site RBA Bicarbonate Actual 30.4 H ABG pH 7.30 L ABG pCO2 62.6 H* ABG pO2 61.1 ABG O2 Sat (Measured) 89.6 L ABG O2 Content 16.3 L ABG Base Excess 2.5 ABG Hematocrit 39.0 L ABG Hemoglobin 13.1 L ABG Oxyhemoglobin 88.3 L ABG Carboxyhemoglobin 1.1 ABG Methemoglobin 0.30 ABG Deoxyhemoglobin 10.3 H Gómez Test Not Reportable A-a O2 Gradient 324.100 H Ionized Calcium 1.18 Mode of Support SIMV % Minute Volume 8.1 Mechanical Rate 18 Inspired O2 65 Tidal Volume 450 Pressure Support 16 PEEP or CPAP 14.0 Sodium 138 Potassium 4.20 Chloride 108 H Carbon Dioxide Anion Gap BUN Creatinine Estimated GFR (MDRD) Glucose POC Glucose 90 92 Calcium 04/23/20 04/23/20 04/24/20 16:15 20:27 05:00 WBC RBC Hgb Hct MCV MCH MCHC RDW Plt Count MPV Neutrophils % (Manual) Band Neuts % (Manual) Lymphocytes % (Manual) Reactive Lymphs % Monocytes % (Manual) Eosinophils % (Manual) Macrocytosis Specimen Type Puncture Site Bicarbonate Actual ABG pH ABG pCO2 ABG pO2 ABG O2 Sat (Measured) ABG O2 Content ABG Base Excess ABG Hematocrit ABG Hemoglobin ABG Oxyhemoglobin ABG Carboxyhemoglobin ABG Methemoglobin ABG Deoxyhemoglobin Gómez Test A-a O2 Gradient Ionized Calcium Mode of Support % Minute Volume Mechanical Rate Inspired O2 Tidal Volume Pressure Support PEEP or CPAP Sodium 139 Potassium 4.2 Chloride 105 Carbon Dioxide 26 Anion Gap 12 BUN 36 H Creatinine 0.74 Estimated GFR (MDRD) Greater than 90 Glucose 115 H POC Glucose 118 H 134 H Calcium 7.7 L 04/24/20 04/24/20 04/24/20 05:00 07:35 08:24 WBC 20.0 H RBC 2.69 L Hgb 9.2 L Hct 28.6 L MCV 106.0 H MCH 34.2 H MCHC 32.2 RDW 12.2 Plt Count 169 MPV 8.9 Neutrophils % (Manual) 85 H Band Neuts % (Manual) 10 Lymphocytes % (Manual) 3 L Reactive Lymphs % Monocytes % (Manual) 2 Eosinophils % (Manual) Macrocytosis Specimen Type ARTERIAL Puncture Site RBA Bicarbonate Actual 27.7 ABG pH 7.33 L ABG pCO2 53.3 H ABG pO2 53.1 L* ABG O2 Sat (Measured) 86.3 L* ABG O2 Content 11.4 L ABG Base Excess 1.2 ABG Hematocrit 28.0 L ABG Hemoglobin 9.5 L ABG Oxyhemoglobin 85.4 L ABG Carboxyhemoglobin 0.8 ABG Methemoglobin 0.30 ABG Deoxyhemoglobin 13.5 H Gómez Test Not Reportable A-a O2 Gradient 236.775 H Ionized Calcium 1.15 Mode of Support AC % Minute Volume 9.0 Mechanical Rate 20 Inspired O2 50 Tidal Volume 420 Pressure Support PEEP or CPAP 14.0 Sodium 134 L Potassium 4.05 Chloride 106 Carbon Dioxide Anion Gap BUN Creatinine Estimated GFR (MDRD) Glucose POC Glucose 100 Calcium 04/24/20 12:37 WBC RBC Hgb Hct MCV MCH MCHC RDW Plt Count MPV Neutrophils % (Manual) Band Neuts % (Manual) Lymphocytes % (Manual) Reactive Lymphs % Monocytes % (Manual) Eosinophils % (Manual) Macrocytosis Specimen Type Puncture Site Bicarbonate Actual ABG pH ABG pCO2 ABG pO2 ABG O2 Sat (Measured) ABG O2 Content ABG Base Excess ABG Hematocrit ABG Hemoglobin ABG Oxyhemoglobin ABG Carboxyhemoglobin ABG Methemoglobin ABG Deoxyhemoglobin Gómez Test A-a O2 Gradient Ionized Calcium Mode of Support % Minute Volume Mechanical Rate Inspired O2 Tidal Volume Pressure Support PEEP or CPAP Sodium Potassium Chloride Carbon Dioxide Anion Gap BUN Creatinine Estimated GFR (MDRD) Glucose POC Glucose 150 H Calcium - ABG Interpretation ABG Results: ABG pH 7.33 (7.35-7.45) L 04/24/20 07:35 ABG pCO2 53.3 mmHg (35.0-45.0) H 04/24/20 07:35 ABG Base Excess 1.2 mEq/L (-2.0 to +3.0) 04/24/20 07:35 CCU Progress Note: A/P - Plan Plan: Assess Acute hypoxemic resp failure with increasing peak pressures, secretions COVID pneumonia leukocytosis / sepsis possible nosocomial infections mild azotemia, no significant change remains critically ill Continue with mechanical ventilator weaning as tolerated f/u Cultures blood sputum urine, had bronch 04/23 Cefepime and Vanco (dose per pharm) started continue other treatments dvt and stress ulcer ppx 40 mins
[2020-04-24 14:31] LABS: Ref Lab Test Ordered LEGIONELLA DFA; Reference Lab Name LABCORP
[2020-04-24 14:32] LABS: Ref Lab Test Ordered VIRAL CX; Reference Lab Name LABCORP
--- NOTE | 2020-04-24 15:56 | PDOC.BPN ---
- Brief Progress Note Encounter Date: 04/24/20 (n) Encounter Time: 15:55 started fluconazole for yeast in bronch washing due to severity of leukocytosis, avoiding prolonged QTc with d/c propofol and substitue precedex
[2020-04-24] MEDS: Fluconazole In NaCl,Iso-Osm 200 MG in Premix Bag 1 BAG IVPB SCH (17:57)
[2020-04-24] MEDS: HumaLOG 300 UNITS/3 ML VIAL SC PRN (21:17)
[2020-04-25] MEDS: Budesonide 0.5 MG/2 ML NEB NEB SCH ×2 (10:57→18:47)
--- NOTE | 2020-04-25 11:20 | RAD ---
EXAM: CHEST ONE VIEW HISTORY: Pneumonia. Follow-up evaluation. COMPARISON: 04/24/2020. FINDINGS: Endotracheal tube, nasogastric tube, and left-sided vascular catheter remain in place. Tip of the tom ogastric tube is not imaged. Tip of the left-sided vascular catheter overlies the region of the right atrium. Diffuse and extensive bilateral interstitial and alveolar opacities are seen throughout the lungs bilaterally. No significant interval change when compared to the prior study. IMPRESSION: Diffuse and extensive bilateral interstitial and alveolar opacities with imaging findings most sugges tive of Covid pneumonia.
[2020-04-25] MEDS ORDERED: Cefepime 2 GM VIAL ONE (11:47)
[2020-04-25] MEDS ORDERED: Fluconazole In NaCl,Iso-Osm 200 mg/100 ml Premix Bag ONE (11:47)
[2020-04-25] MEDS ORDERED: VANCOMYCIN 1.25 GM/250 ML BAG ONE (11:47)
--- NOTE | 2020-04-25 12:14 | PRG ---
DATE OF SERVICE: 04/25/2020 35 minutes of critical care time. SUBJECTIVE: The patient remains intubated on mechanical ventilation. There has been no acute change. OBJECTIVE: VITAL SIGNS: His pulse is 128, blood pressure 178/81, O2 saturation 92%, respiratory rate 22, is currently on assist-control ventilation, rate of 20, high tidal volume 420, PEEP 14, FiO2 60%. HEENT: Unchanged. NECK: No JVD. LUNGS: Inspiratory crackles bilaterally. CARDIAC: S1, S2. Regular. ABDOMEN: Soft. EXTREMITIES: No edema. LABORATORY DATA: His x-ray continues to show bilateral infiltrates that may be slightly better than yesterday's. His labs have not been posted in the computer yet. Bronchial washing is negative. He had gram-positive cocci come from the central line. ASSESSMENT: 1. COVID-19 pneumonia with acute hypoxic respiratory failure, requiring mechanical ventilation. 2. Question of line sepsis - no organism has returned at this point. PLAN: 1. Continue supportive care, on mechanical ventilation. 2. If central line has not already been discontinued, consider pulling that and just using a midline. 3. Continue Arixtra for DVT prophylaxis. 4. Continue steroids. 5. Continue colchicine. Job ID: [id number]
[2020-04-25 14:54] LABS: Anion Gap 16 mmol/L (10-20); BUN (Urea Nitrogen) 36 mg/dL (8.4-25.7); Calc. Creatinine Clearance 99 mL/min (70-130); Calcium 7.8 mg/dL (7.8-10.44); Carbon Dioxide 24 mmol/L (23-31); Chloride 105 mmol/L (98-107); Glucose 119 mg/dL (83-110); Potassium 4.6 mmol/L (3.5-5.1); Sodium 140 mmol/L (136-145)
[2020-04-25] MEDS: Fluconazole In NaCl,Iso-Osm 200 MG in Premix Bag 1 BAG IVPB SCH (17:30)
[2020-04-25] MEDS: Cefepime 2 GM in Sodium Chloride 0.9% 100 ML IVPB SCH ×2 (18:09→19:43)
[2020-04-25] MEDS: Atorvastatin Calcium 20 MG TAB PO SCH (18:09)
[2020-04-25] MEDS: Colchicine 0.6 MG TAB PO SCH ×2 (18:10→20:11)
[2020-04-25] MEDS: Dexamethasone 4 mg/ml Vial SLOW IVP SCH (18:10)
[2020-04-25] MEDS: NPH, Human Insulin Isophane 300 UNIT/3 ML VIAL SC SCH ×2 (18:10→20:11)
[2020-04-25] MEDS: Pantoprazole 40 MG GRANULES PACKET PER TUBE SCH (18:11)
[2020-04-25] MEDS: VANCOMYCIN 1.25 GM/250 ML BAG 1.25 GM in Premix Bag 1 BAG IVPB SCH ×2 (18:12→20:11)
[2020-04-25] MEDS: Polyethylene Glycol 3350 17 GM Packet PER TUBE SCH (18:12)
[2020-04-25 19:24] LABS: Hemoglobin 10.3 g/dL (14.0-18.0); Mean Corpuscular HGB CONC 31.8 g/dL (32.0-36.0); Mean Corpuscular Hemoglobin 33.9 pg (27.0-31.0); Mean Platelet Volume 9.1 fL (7.4-10.4); Platelet Count 218 thou/uL (130-400); RBC Distribution Width 12.2 % (11.5-14.5); Red Blood Cell (RBC) Count 3.04 mill/uL (4.70-6.10); White Blood Cell (WBC) Count 18.5 thou/uL (4.8-10.8)
[2020-04-25 19:53] LABS: Band 8 % (5-11); MDiff Complete? YES; Macrocytosis SLIGHT = 6-15 cells (100X) (0-5/hpf); Monocytes 7 % (0-10); Neutrophil 82 % (42-75); Platelet Morphology Comment Appears Adequate; Polychromasia SLIGHT = 2-3 cells (100X) (0-2/hpf); Reactive Lymphocytes 3 % (0-10)
[2020-04-25] MEDS: FONDAPARINUX SODIUM SC SCH (20:09)
[2020-04-25] MEDS: ADMIXTURE FEE SC SCH (20:09)
[2020-04-25] MEDS ORDERED: Fentanyl CADD 100 ML ONE (20:52)
[2020-04-25] MEDS: Fentanyl CADD 100 ML IV SCH (20:57)
[2020-04-26] MEDS: HumaLOG 300 UNITS/3 ML VIAL SC PRN (00:30)
[2020-04-26 04:26] LABS: #Lymphocytes 0.5 thou/uL (1.20-3.40); #Monocytes 0.7 thou/uL (0.11-0.59); #Neutrophils 8.7 thou/uL (1.40-6.50); %Basophils 0.1 % (0.0-1.0); %Lymphocytes 5.5 % (21.0-51.0); %Neutrophils 87.5 % (42.0-75.0); Hemoglobin 9.1 g/dL (14.0-18.0); Mean Corpuscular HGB CONC 32.3 g/dL (32.0-36.0); Mean Corpuscular Hemoglobin 34.2 pg (27.0-31.0); Mean Platelet Volume 8.8 fL (7.4-10.4); Platelet Count 177 thou/uL (130-400); RBC Distribution Width 12.1 % (11.5-14.5); Red Blood Cell (RBC) Count 2.66 mill/uL (4.70-6.10); White Blood Cell (WBC) Count 9.9 thou/uL (4.8-10.8)
[2020-04-26 04:50] LABS: Anion Gap 10 mmol/L (10-20); BUN (Urea Nitrogen) 40 mg/dL (8.4-25.7); Calc. Creatinine Clearance 117 mL/min (70-130); Calcium 7.4 mg/dL (7.8-10.44); Carbon Dioxide 24 mmol/L (23-31); Chloride 108 mmol/L (98-107); Glucose 148 mg/dL (83-110); Potassium 4.2 mmol/L (3.5-5.1); Sodium 138 mmol/L (136-145)
--- NOTE | 2020-04-26 06:07 | PDOC.FM ---
- Subjective Subjective: Patient intubated, on precedex and fentanyl. Increased to 80% FiO2 overnight. Follows commands. - Objective MAR Reviewed: Yes Vital Signs & Weight: Vital Signs (12 hours) Temp Pulse Resp Pulse Ox 04/26/20 05:53 18 04/26/20 05:52 97.0 F L 04/26/20 03:58 20 04/26/20 02:10 83 20 90 L 04/26/20 02:07 85 04/26/20 02:00 12 04/26/20 00:00 15 04/25/20 22:45 79 21 H 97 04/25/20 22:00 15 04/25/20 20:00 20 97 04/25/20 19:00 98.9 F 04/25/20 18:46 86 24 H 88 L Weight Admit Weight 83.461 kg Weight 97.8 g Most Recent Monitor Data Heart Rate from ECG 95 NIBP 142/78 NIBP BP-Mean 99 Respiration from ECG 30 SpO2 89 I&O: 04/24/20 04/25/20 04/26/20 06:59 06:59 06:59 Intake Total 5931.8 2554 3495.5 Output Total 1170 1045 1725 Balance 4761.8 1509 1770.5 Result Diagrams: 04/26/20 03:18 04/26/20 03:18 Radiology Reviewed by me: Yes Phys Exam - Physical Examination Constitutional: NAD HEENT: PERRLA Respiratory: no wheezing (coarse breath sounds bilaterally) Cardiovascular: RRR, no significant murmur Gastrointestinal: soft, non-tender, no distention Musculoskeletal: edema present (1+ bilaterally in UEs, increased scrotal edema) Skin: no rash Dx/Plan - Plan Plan: 1. Neuro - GCS 10T (3E, 1V, 6M) - on precedex and fentanyl 2. CV - NSR, monitor 3. Resp COVID PNA - Off airborne/covid precautions - IV dexamethasone , colchicine, albuterol inhaler - / intubation - Current Vent Settings: SIMV, FiO2 80%, TV 450, RR 20 w/ pt breathing 25, Peep 14, Peak pressure at 30. Not ready to wean. - Pulmonology consulted, appreciate recs - s/p bronchoscopy 04/23, bronchial washings showing michele, on fluconazole 4. GI - dietary consulted, continue carb consistent tube feeds - continue free water bolus per tube 200mL/q6hr. Hypernatremia now resolved. 5. Renal/ Pseudomonas UTI: narrow abx spectrum as below. Pansensitive. - pt appears fluid overloaded this AM - lasix 40mg IVP given 6. ID - COVID PNA, see above - s/p rocephin (04/10-04/11) and azithro (04/10-04/12) for possible superimposed bacterial infection - Leukocytosis: increased so Bronchoscopy performed 04/23 * cefepime and vanc started 04/23. * Blood culture from central line growing S. Epi, Methicillin resistant. Likely contaminant, however, will need to d/c this line after establishing PICC access. * PICC team unavailable until tomorrow due to weather. Plan for double lumen PICC on 04/27 and removal of central line. - Repeat UCx growing pansensitive pseudomonas, could narrow from cefepime to ceftriaxone - Sputum showing michele albicans, continue fluconazole 7. Heme - platelets stable, continue fondaparinux 8. Endo/Electrolytes - DM2: held home meds while in hospital, - NPH 5 BID - SSI, hypoglycemia protocol 9. Lines/Tubes: - Left Subclavian central line placed on 04/14. Plan to d/c on 04/27 - Intubated on 04/14 with OG tube placed - Winkler 04/14 - IV: Left midline 10. Abx: - cefepime and vanc started 04/23. Plan to d/c vanc tomorrow after central line is pulled. Will d/c cefepime and start ceftriaxone today. - fluconazole 04/24 - s/p rocephin (04/10-04/11) and azithro (04/10-04/12) Family/CM: reached out to palliative care today. They will be contacting the pt's ; however, they are not in house today due to weather. IN discussions with yesterday, she seemed very unsure of trach/peg placement. She and sons plan to visit Saturday. Continue discussions of trach/peg and prognosis. Dispo: Continue medical management with steroids, colchicine, and ventilation in the ICU; will continue to monitor electrolytes and treat as needed. Addendum - Attending - Attending Attestation Date/Time: 04/26/20 [id number] I personally evaluated the patient and discussed the management with Dr. Morales. I agree with the History, Examination, Assessment and Plan documented above with any addition or exceptions noted below. COVID Pna with ARDS, worsening, and presumed VAP, now with 2/2 BCx + from CVC for S. epi, which is unfortunately a common contaminant here. Will need to re place CVC per Dr. Velez. Program Project Analyst for that procedure per his preference. Continue broad spectrum Abx. Lung protective ventilation.
[2020-04-26] MEDS: Budesonide 0.5 MG/2 ML NEB NEB SCH ×2 (06:30→19:07)
[2020-04-26] MEDS: ADMIXTURE FEE SC SCH (06:46)
[2020-04-26] MEDS: FONDAPARINUX SODIUM SC SCH (06:46)
--- NOTE | 2020-04-26 07:56 | RAD ---
XR Chest 1 View Portable HISTORY: Covid pneumonia COMPARISON: Prior day's exam. FINDINGS: Endotracheal and NG tubes remain in satisfactory position. Extensive bilateral lung infiltr ates are stable. IMPRESSION: Stable exam.
[2020-04-26] MEDS ORDERED: Furosemide 40 MG/4 ML VIAL SLOW IVP SCH (08:00)
--- NOTE | 2020-04-26 08:09 | PRG ---
DATE OF SERVICE: 04/26/2020 This is a 35 minutes of critical care time. SUBJECTIVE: This patient remains intubated on mechanical ventilation. His current settings are assist control, rate 20, tidal volume 420. His PEEP is 14. His FiO2 is set at 80%. With that, his O2 saturations were running about 90%. OBJECTIVE: VITAL SIGNS: His temperature is 97.0, pulse 100, blood pressure 145/70. Total intake for the last 24 hours was 3495, output 1725. HEENT: Unremarkable. NECK: No JVD. LUNGS: He has crackles bilaterally. CARDIOVASCULAR: S1, S2. Regular. ABDOMEN: Soft, nontender to palpation. EXTREMITIES: Generalized edema throughout. LABORATORY DATA: Sodium 138, potassium 4.2, chloride 108, CO2 of 24, BUN 40, creatinine 0.7, glucose 148. White blood cell count 9.9, hematocrit 28.2, and platelet count 177. His chest x-ray continued to show diffuse bilateral infiltrates from the COVID-19 pneumonia. His ET tube is in good position. ASSESSMENT: 1. Coronavirus disease 2019 pneumonia. 2. Gram-positive cocci, line sepsis. 3. Pseudomonas aeruginosa urinary tract infection. 4. Leatha albicans on bronchial washings, this is usually contaminant. 5. Coronavirus disease 2019 pneumonia, acute respiratory failure requiring mechanical ventilation. PLAN: 1. The chances of this patient's surviving illness is pretty dismal at this point. His central line needs to be pulled. He can have a PICC line placed instead. He will continue with the cefepime, fluconazole, and vancomycin. Decrease steroid dose as at this point, does not seem to be doing much good. 2. Continue colchicine. 3. Need to communicate with family that this is not going well and he is unlikely to survive. Job ID: [id number]
[2020-04-26] MEDS: Pantoprazole 40 MG GRANULES PACKET PER TUBE SCH (08:55)
[2020-04-26] MEDS: Atorvastatin Calcium 20 MG TAB PO SCH (08:55)
[2020-04-26] MEDS: Polyethylene Glycol 3350 17 GM Packet PER TUBE SCH (08:55)
[2020-04-26] MEDS: Cefepime 2 GM in Sodium Chloride 0.9% 100 ML IVPB SCH ×2 (08:56→20:33)
[2020-04-26] MEDS: Dexamethasone 4 mg/ml Vial SLOW IVP SCH (08:56)
[2020-04-26] MEDS: Colchicine 0.6 MG TAB PO SCH ×2 (08:56→20:34)
[2020-04-26] MEDS: NPH, Human Insulin Isophane 300 UNIT/3 ML VIAL SC SCH ×2 (08:57→20:38)
[2020-04-26 09:31] LABS: Vancomycin, Trough 22.7 ug/mL
[2020-04-26] MEDS: VANCOMYCIN 1.25 GM/250 ML BAG 1.25 GM in Premix Bag 1 BAG IVPB SCH (09:53)
[2020-04-26] MEDS ORDERED: Fentanyl CADD 100 ML ONE ×2 (09:57→22:39)
--- NOTE | 2020-04-26 14:47 | PDOC.CNTRL ---
Central Line Procedure Note - Procedure Date: 04/26/20 Time: 14:15 - PreProcedure Diagnosis: 1. Central line infection, 2. Need for IV access and unable to place PIV or PICC - PostProcedure Diagnosis: same as above - Anesthesia Anesthesia: 1% Lidocaine without epinephrine - Description Focused site: femoral vein: Right Ultrasound guidance: Yes Patient tolerated procedure: well Procedure in Details: Procedure: After consent obtained from , a timeout was performed. Sterile technique was observed. Ultrasound was used to view femoral and IJ veins; we chose the right femoral vein as the most suitable candidate. The left subclavian site was unable as this had prior CVC which was positive on blood culture. Site was prepped and drapped in sterile fashion. Local anesthetic of 1% lidocaine was infiltrated at the site. Under ultrasound guidance, right femoral vein was entered and blood was easily withdrawn. Syringe was removed and guidewire was inserted easily. Needle was removed. Skin was nicked with scalpel. Dilator was advanced over the guidewire. Dilator was removed, and pre-flushed triple lumen catheter was placed over the guidewire. Catheter was hubbed, and all 3 ports successfully katie blood and flushed easily. Line was sutured in placed. Sterile dressing was placed. Patient tolerated procedure well. Blood loss <[address] Jaffe present and attended entire procedure.
--- NOTE | 2020-04-26 16:24 | RAD ---
PORTABLE CHEST 1 VIEW: Date: 04/26/2020 Time: 1606 HOURS HISTORY: Respiratory failure, rhythm changes. FINDINGS/IMPRESSION: There has been interval removal of the left subclavian central venous catheter since the previous day 's exam. The remainder of the exam is otherwise stable. POS: [place]
[2020-04-26 16:32] LABS: INR-International Normal Ratio 1.4; Prothrombin Time 17.8 sec (12.0-14.7)
[2020-04-26] MEDS ORDERED: Fluconazole In NaCl,Iso-Osm 200 MG, Admixture Fee 1 EACH in Premix Bag 1 BAG IVPB SCH (17:00)
[2020-04-26] MEDS: Vancomycin 1 GM in Premix Bag 1 BAG IVPB SCH (20:34)
[2020-04-26] MEDS: Fentanyl CADD 100 ML IV SCH (22:47)
[2020-04-27] MEDS: HumaLOG 300 UNITS/3 ML VIAL SC PRN ×2 (00:43→11:57)
[2020-04-27 04:03] LABS: #Lymphocytes 0.5 thou/uL (1.20-3.40); #Neutrophils 12.5 thou/uL (1.40-6.50); %Basophils 0.1 % (0.0-1.0); %Eosinophils 0.3 % (0.0-10.0); %Lymphocytes 3.8 % (21.0-51.0); %Neutrophils 88.7 % (42.0-75.0); Hemoglobin 10.1 g/dL (14.0-18.0); Mean Corpuscular HGB CONC 34.3 g/dL (32.0-36.0); Mean Corpuscular Hemoglobin 36.6 pg (27.0-31.0); Mean Platelet Volume 8.7 fL (7.4-10.4); Platelet Count 202 thou/uL (130-400); RBC Distribution Width 12.2 % (11.5-14.5); Red Blood Cell (RBC) Count 2.76 mill/uL (4.70-6.10); White Blood Cell (WBC) Count 14.1 thou/uL (4.8-10.8)
[2020-04-27 04:26] LABS: Anion Gap 13 mmol/L (10-20); BUN (Urea Nitrogen) 50 mg/dL (8.4-25.7); Calc. Creatinine Clearance 99 mL/min (70-130); Calcium 7.9 mg/dL (7.8-10.44); Carbon Dioxide 24 mmol/L (23-31); Chloride 105 mmol/L (98-107); Glucose 149 mg/dL (83-110); Potassium 4.2 mmol/L (3.5-5.1); Sodium 138 mmol/L (136-145)
--- NOTE | 2020-04-27 05:17 | PDOC.FM ---
- Subjective Subjective: intubated, precedex on 1.2, fentanyl at 150 Follows commands. Appears to be somewhat agitated and dysynchronous with the vent. - Objective MAR Reviewed: Yes Vital Signs & Weight: Vital Signs (12 hours) Temp Pulse Resp Pulse Ox 04/27/20 04:00 98.2 F 20 04/27/20 02:12 108 H 04/27/20 02:07 118 H 21 H 93 L 04/27/20 02:00 25 H 04/26/20 22:21 95 04/26/20 22:20 94 26 H 96 04/26/20 22:00 20 04/26/20 20:00 20 93 L 04/26/20 19:07 65 20 98 04/26/20 19:03 63 04/26/20 19:00 98.6 F 04/26/20 18:00 20 Weight Admit Weight 83.461 kg Weight 97.8 kg Most Recent Monitor Data Heart Rate from ECG 82 NIBP 133/65 NIBP BP-Mean 87 Respiration from ECG 22 SpO2 94 I&O: 04/25/20 04/26/20 04/27/20 06:59 06:59 06:59 Intake Total 2554 3495.5 790.5 Output Total 1045 1725 3050 Balance 1509 1770.5 -2259.5 Result Diagrams: 04/27/20 03:30 04/27/20 03:30 Radiology Reviewed by me: Yes (appears somewhat worse on R) Phys Exam - Physical Examination appears somewhat uncomfortable, distressed HEENT: PERRLA (blinks eyes to command) LUNGS: rhonchi bilaterally Cardiovascular: RRR, no significant murmur Gastrointestinal: soft, no distention Musculoskeletal: edema present (continued scrotal and peripheral edema similar to previous exam) Skin: no rash Dx/Plan - Plan Plan: 1. Neuro - GCS 10T (3E, 1V, 6M) - on precedex and fentanyl. Precedex is being weaned. Discuss sedation options for patient w/ Pulm. 2. CV - NSR, monitor 3. Resp COVID PNA - Off airborne/covid precautions - IV dexamethasone , colchicine, albuterol inhaler - 2/4 intubation - Current Vent Settings: SIMV, FiO2 80%, TV 450, RR 20 w/ pt breathing 25, Peep 11, Peak pressure at 30. PEEP decreased from 14 yesterday. - Pulmonology consulted, appreciate recs - s/p bronchoscopy 04/23, bronchial washings showing michele, on fluconazole. This may be contaminant. Discuss with team if fluconazole may be d/c'd. 4. GI - dietary consulted, continue carb consistent tube feeds - blood glucose well controlled - due to edema, consider d/c or decrease in amount of free water irrigant, which is currently at 200mL q6hr 5. Renal/ Pseudomonas UTI: pansensitive. on Cefepime. - pt continues to appear fluid overloaded. Lasix given yesterday with very slight increase in creatinine. Consider decrease of free water irrigant as mentioned above. 6. ID - COVID PNA, see above - s/p rocephin (04/10-04/11) and azithro (04/10-04/12) for possible superimposed bacterial infection - Bronchoscopy 04/23 for leukocytosis - Empiric treatment for VAP: cefepime and vanc 04/23. - CVC line infection: possible contaminant. Given 04/12 + blood cultures with S. Epi, Methicillin resistant, removed L subclavian on 04/26, replaced w/ R fem CVC and PICC line to be placed today. - Pseudomonas UTI: pansensitive pseudomonas - Sputum showing michele albicans, continue fluconazole, discuss if can d/c if contaminant w/ Pulm. 7. Heme - platelets stable, continue fondaparinux 8. Endo/Electrolytes - DM2: blood sugars well controlled between 130-180 - NPH 5 BID - SSI, hypoglycemia protocol 9. Lines/Tubes: - Left Subclavian central line removed, was in place 04/14-04/26. - R fem CVC 04/26. - Intubated on 04/14 with OG tube placed - Winkler 04/14 - IV: Left midline - PLAN FOR PICC LINE TODAY. 10. Abx: - cefepime and vanc started 04/23. - fluconazole 04/24 - s/p rocephin (04/10-04/11) and azithro (04/10-04/12) Family/CM: family to visit Saturday. Continue to discuss prognosis, which is poor, compassionate extubation vs trach/peg Dispo: Continue medical management with steroids, colchicine, and ventilation in the ICU. Addendum - Attending - Attending Attestation Date/Time: 04/27/20 2264 I personally evaluated the patient and discussed the management with Dr. Morales. I agree with the History, Examination, Assessment and Plan documented above with any addition or exceptions noted below. Acute hypoxic resp failure 2/2 covid PNA, worsening. Sepsis, presumably 2/2 VAP vs CLABSI (although this seems ruled out) with CVC replaced. Continue antibiotics and plan for PICC line when available. Continue diuresis. Supportive care.
[2020-04-27] MEDS: Budesonide 0.5 MG/2 ML NEB NEB SCH ×2 (06:55→18:23)
[2020-04-27] MEDS: FONDAPARINUX SODIUM SC SCH (07:42)
[2020-04-27] MEDS: ADMIXTURE FEE SC SCH (07:42)
[2020-04-27] MEDS: Pantoprazole 40 MG GRANULES PACKET PER TUBE SCH (07:43)
[2020-04-27] MEDS: Atorvastatin Calcium 20 MG TAB PO SCH (07:43)
[2020-04-27] MEDS: Colchicine 0.6 MG TAB PO SCH ×2 (07:43→19:23)
[2020-04-27] MEDS: Cefepime 2 GM in Sodium Chloride 0.9% 100 ML IVPB SCH ×2 (07:43→19:22)
[2020-04-27] MEDS: Dexamethasone 4 mg/ml Vial SLOW IVP SCH (07:44)
[2020-04-27] MEDS: Polyethylene Glycol 3350 17 GM Packet PER TUBE SCH (07:44)
[2020-04-27] MEDS: Vancomycin 1 GM in Premix Bag 1 BAG IVPB SCH ×2 (07:44→20:15)
--- NOTE | 2020-04-27 07:53 | RAD ---
Portable frontal chest radiograph: 04/27/2020 COMPARISON: 04/26/2020 HISTORY: Pneumonia FINDINGS: Stable endotracheal tube and nasogastric tube. There is extensive interstitial and alveolar opacity seen throughout both lungs, right greater than l eft, with focal airspace disease most prominent within the mid right lung zone and right lung base. IMPRESSION: Stable appearance of the chest as detailed above.
--- NOTE | 2020-04-27 08:45 | PRG ---
DATE OF SERVICE: 04/27/2020 35 minutes critical time. SUBJECTIVE: The patient remains intubated on mechanical ventilation for COVID-19 pneumonia, has been no acute changes overnight. OBJECTIVE: VITAL SIGNS: Temperature 98.2, pulse 105, blood pressure 150/83, O2 saturation 88%. HEENT: Unremarkable. NECK: No JVD. LUNGS: Coarse breath sounds. CARDIAC: S1 and S2 regular. ABDOMEN: Soft. EXTREMITIES: Edematous. He is demonstrating more respiratory effort than yesterday using accessory neck muscles. Currently, sedated on some Precedex. LABORATORY DATA: Sodium 138, potassium 4.2, chloride 105, CO2 of 24, BUN 50, creatinine 0.8, glucose 149. White blood cell count 14, hematocrit 29.5, and platelet count 202. X-ray shows no significant change. ASSESSMENT: 1. COVID-19 pneumonia with acute hypoxic respiratory failure, requiring mechanical ventilation. 2. Pseudomonal urinary tract infection. 3. Gram-positive cocci-line sepsis. 4. Contaminated bronchial washings with Leatha. PLAN: 1. PICC line placement today. 2. Increase PEEP back to 14. 3. Use Versed for sedation Precedex as I anticipate him being on the ventilator for a long time. Job ID: [id number]
[2020-04-27] MEDS: NPH, Human Insulin Isophane 300 UNIT/3 ML VIAL SC SCH ×2 (08:47→20:56)
[2020-04-27] MEDS ORDERED: Fentanyl CADD 100 ML ONE ×2 (09:28→17:56)
--- NOTE | 2020-04-27 11:53 | SPC ---
LEFT PICC LINE PLACEMENT: HISTORY: Infection. Antibiotics required. EXPOSURE: Not provided. FINDINGS: Successful left PICC line placement. Single lumen catheter terminates in the right atrium. Trim monik gth is 45 cm. TECHNIQUE: Consent was obtained to perform a left PICC line. The left arm was prepped and draped in a sterile f ashion. 1% Lidocaine, buffered with sodium bicarbonate, was used for local anesthesia. Under ultras ound guidance, micropuncture needle was used to cannulate the basilic vein. A 0.018 guidewire was ad vanced through the needle to the level of the right atrium. The tract was dilated. Dual-lumen 5 Marcus nch catheter was advanced over the wire. The wire was removed. Distal tip terminates in the right a trium. Both lumens flush and aspirate without difficulty. RADIOGRAPH: Intraprocedure and post procedure radiographs were performed. One image is submitted for interpretat ion and demonstrates a left-sided PICC line. Distal tip is in the inferior vena cava confirming veno us access. An Endotracheal tube is noted. Multifocal interstitial and alveolar opacities are identi fied. IMPRESSION: Successful left upper extremity PICC line placement with ultrasound guidance. POS: PPP
[2020-04-28 04:49] LABS: #Lymphocytes 0.8 thou/uL (1.20-3.40); #Monocytes 0.6 thou/uL (0.11-0.59); %Basophils 0.4 % (0.0-1.0); %Eosinophils 0.3 % (0.0-10.0); %Lymphocytes 8.7 % (21.0-51.0); %Monocytes 6.4 % (0.0-10.0); %Neutrophils 84.2 % (42.0-75.0); Hemoglobin 8.7 g/dL (14.0-18.0); Mean Corpuscular HGB CONC 32.1 g/dL (32.0-36.0); Mean Corpuscular Hemoglobin 33.9 pg (27.0-31.0); Mean Platelet Volume 8.7 fL (7.4-10.4); Platelet Count 198 thou/uL (130-400); RBC Distribution Width 12.4 % (11.5-14.5); Red Blood Cell (RBC) Count 2.57 mill/uL (4.70-6.10); White Blood Cell (WBC) Count 9.5 thou/uL (4.8-10.8)
[2020-04-28 05:12] LABS: Anion Gap 10 mmol/L (10-20); BUN (Urea Nitrogen) 59 mg/dL (8.4-25.7); Calc. Creatinine Clearance 89 mL/min (70-130); Calcium 7.7 mg/dL (7.8-10.44); Carbon Dioxide 25 mmol/L (23-31); Chloride 107 mmol/L (98-107); Glucose 109 mg/dL (83-110); Potassium 4.1 mmol/L (3.5-5.1); Sodium 138 mmol/L (136-145)
--- NOTE | 2020-04-28 05:37 | PDOC.FM ---
- Subjective Subjective: Patient intubated and sedated. No acute events overnight. PICC placed yesterday, R fem central line removed. - Objective MAR Reviewed: Yes Vital Signs & Weight: Vital Signs (12 hours) Temp Pulse Resp BP Pulse Ox 04/28/20 04:00 20 04/28/20 03:00 98.1 F 04/28/20 02:28 96 130/57 L 04/28/20 02:00 20 04/28/20 00:00 20 04/27/20 23:15 93 L 04/27/20 23:00 98.2 F 04/27/20 22:07 94 111/56 L 04/27/20 22:00 20 04/27/20 20:00 20 04/27/20 19:51 20 92 L 04/27/20 19:00 98.2 F 04/27/20 18:23 90 108/51 L 04/27/20 18:00 20 Weight Admit Weight 83.461 kg Weight 96.8 kg Most Recent Monitor Data Heart Rate from ECG 89 NIBP 112/55 NIBP BP-Mean 74 Respiration from ECG 20 SpO2 97 I&O: 04/26/20 04/27/20 04/28/20 06:59 06:59 06:59 Intake Total 3495.5 1852.5 1961.8 Output Total 1725 3155 1356 Balance 1770.5 -1302.5 605.8 Result Diagrams: 04/28/20 04:00 04/28/20 04:00 Radiology Reviewed by me: Yes Phys Exam - Physical Examination Constitutional: NAD Respiratory: wheezing present (coarse rhonchi bilaterally) Cardiovascular: RRR, no significant murmur Gastrointestinal: soft, non-tender, no distention Musculoskeletal: edema present Dx/Plan - Plan Plan: 1. 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 CV - NSR, monitor 3. Resp COVID PNA - Off airborne/covid precautions - IV dexamethasone , colchicine, albuterol inhaler - 2/4 intubation - Current Vent Settings: SIMV, FiO2 70%, TV 450, RR 20 w/ pt breathing 25, Peep 14, Peak pressure at 30. - Pulmonology consulted, appreciate recs 4. GI - dietary consulted, continue carb consistent tube feeds - blood glucose well controlled 5. Renal/ Pseudomonas UTI: pansensitive. on Cefepime. - pt continues to appear fluid overloaded. Restricting free water 6. ID - COVID PNA, see above - s/p rocephin (04/10-04/11) and azithro (04/10-04/12) for possible superimposed bacterial infection - Bronchoscopy 04/23 for leukocytosis - Empiric treatment for VAP: cefepime and vanc 04/23. - CVC line infection: possible contaminant. Given 04/12 + blood cultures with S. Epi, Methicillin resistant, removed L subclavian on 04/26, removed R fem. PICC line placed yesterday. - Pseudomonas UTI: pansensitive pseudomonas 7. Heme - platelets stable, continue fondaparinux 8. Endo/Electrolytes - DM2: blood sugars well controlled between 130-180 - NPH 5 BID - SSI, hypoglycemia protocol 9. Lines/Tubes: - L arm PICC 04/27 - Intubated on 04/14 with OG tube placed - Winkler 04/14 10. Abx: - cefepime and vanc started 04/23. HOLD VANC TODAY. ELEVATED VANC TROUGH. Reinitiated communication order for pharmacy to dose. - fluconazole 04/24-04/27 - s/p rocephin (04/10-04/11) and azithro (04/10-04/12) Family/CM: family to visit Saturday. Continue to discuss prognosis, which is poor, compassionate extubation vs trach/peg Dispo: Continue medical management with steroids, colchicine, and ventilation in the ICU. Addendum - Attending - Attending Attestation Date/Time: 04/28/20 7328 I personally evaluated the patient and discussed the management with Dr. Morales. I agree with the History, Examination, Assessment and Plan documented above with any addition or exceptions noted below.
[2020-04-28] MEDS ORDERED: Fentanyl CADD 100 ML ONE ×2 (05:40→16:38)
[2020-04-28] MEDS: Fentanyl CADD 100 ML IV SCH ×2 (05:41→16:53)
--- NOTE | 2020-04-28 07:44 | PRG ---
DATE OF SERVICE: 04/28/2020 SUBJECTIVE: The patient is about the same as he was yesterday. OBJECTIVE: VITAL SIGNS: Temperature 98.1, pulse 92, blood pressure 122/56, O2 saturation 95%. 24-hour intake 2711, output 1431. HEENT: Unremarkable. NECK: No adenopathy or JVD. LUNGS: Crackles anteriorly. CARDIAC: S1, S2. Regular. ABDOMEN: Soft. EXTREMITIES: No edema. LABORATORY DATA: White blood cell count 9.5, hematocrit 27.2, and platelet count 198. Sodium 138, potassium 4.1, chloride 107, CO2 of 25, BUN 59, creatinine 1.0, glucose 109. X-ray does not appear different. He did get a PICC line placed yesterday. ASSESSMENT: 1. COVID-19 pneumonia. 2. Pseudomonal urinary tract infection. 3. Acute respiratory failure requiring mechanical ventilation. 4. Line sepsis. PLAN: 1. Not weanable at this time. 2. Continue the antibiotics for the urinary tract infection and line sepsis. 3. Continue anticoagulation. 4. Continue steroids and colchicine. However, since his renal function is becoming compromised, I will reduce the colchicine once daily. Job ID: [id number]
[2020-04-28] MEDS ORDERED: FONDAPARINUX SODIUM SC SCH (09:00)
[2020-04-28] MEDS ORDERED: Vancomycin 1 GM in Premix Bag 1 BAG IVPB SCH ×2 (09:00→10:45)
[2020-04-28] MEDS ORDERED: ADMIXTURE FEE SC SCH (09:00)
[2020-04-28] MEDS ORDERED: Fondaparinux Sodium 2.5 MG/0.5 ML SYRINGE SC SCH (09:00)
[2020-04-28] MEDS: NPH, Human Insulin Isophane 300 UNIT/3 ML VIAL SC SCH ×2 (09:25→21:03)
[2020-04-28] MEDS: Cefepime 2 GM in Sodium Chloride 0.9% 100 ML IVPB SCH ×2 (09:26→20:30)
[2020-04-28] MEDS: Atorvastatin Calcium 20 MG TAB PO SCH (09:27)
[2020-04-28] MEDS: Colchicine 0.6 MG TAB PO SCH (09:27)
[2020-04-28] MEDS: Polyethylene Glycol 3350 17 GM Packet PER TUBE SCH (09:27)
[2020-04-28] MEDS: Dexamethasone 4 mg/ml Vial SLOW IVP SCH (09:27)
--- NOTE | 2020-04-28 09:29 | RAD ---
PORTABLE CHEST: DATE: 04/28/2020. PROVIDED CLINICAL HISTORY: Pneumonia. FINDINGS: Comparison 04/27/2020. Significant interval change with respect to the prior examination is not appar ent. IMPRESSION: As above. POS: AMIE
[2020-04-28] MEDS: FONDAPARINUX SODIUM SC SCH (09:57)
[2020-04-28] MEDS: ADMIXTURE FEE SC SCH (09:57)
[2020-04-28] MEDS: Pantoprazole 40 MG GRANULES PACKET PER TUBE SCH (13:19)
[2020-04-28] MEDS: Budesonide 0.5 MG/2 ML NEB NEB SCH ×2 (14:14→18:33)
[2020-04-28] MEDS: Apixaban 2.5 MG TAB PO SCH (21:03)
[2020-04-29] MEDS ORDERED: Fentanyl CADD 100 ML ONE ×2 (03:44→14:22)
[2020-04-29] MEDS: Fentanyl CADD 100 ML IV SCH ×2 (03:51→14:27)
[2020-04-29 03:55] LABS: #Lymphocytes 0.7 thou/uL (1.20-3.40); #Monocytes 0.7 thou/uL (0.11-0.59); #Neutrophils 5.7 thou/uL (1.40-6.50); %Basophils 0.3 % (0.0-1.0); %Eosinophils 0.6 % (0.0-10.0); %Lymphocytes 9.8 % (21.0-51.0); %Monocytes 10.2 % (0.0-10.0); %Neutrophils 79.2 % (42.0-75.0); Hemoglobin 8.7 g/dL (14.0-18.0); Mean Corpuscular HGB CONC 32.1 g/dL (32.0-36.0); Mean Corpuscular Hemoglobin 33.9 pg (27.0-31.0); Mean Platelet Volume 8.6 fL (7.4-10.4); Platelet Count 213 thou/uL (130-400); RBC Distribution Width 12.5 % (11.5-14.5); Red Blood Cell (RBC) Count 2.56 mill/uL (4.70-6.10); White Blood Cell (WBC) Count 7.2 thou/uL (4.8-10.8)
[2020-04-29 04:19] LABS: Anion Gap 10 mmol/L (10-20); BUN (Urea Nitrogen) 63 mg/dL (8.4-25.7); Calc. Creatinine Clearance 84 mL/min (70-130); Calcium 7.9 mg/dL (7.8-10.44); Carbon Dioxide 25 mmol/L (23-31); Chloride 109 mmol/L (98-107); Glucose 106 mg/dL (83-110); Potassium 4.1 mmol/L (3.5-5.1); Sodium 140 mmol/L (136-145)
--- NOTE | 2020-04-29 06:28 | PDOC.FM ---
- Subjective Subjective: Patient intubated and sedated on versed. No acute events overnight. - Objective MAR Reviewed: Yes Vital Signs & Weight: Vital Signs (12 hours) Temp Pulse Resp BP Pulse Ox 04/29/20 04:00 16 04/29/20 02:51 101 H 154/68 H 04/29/20 02:00 20 04/29/20 00:00 20 04/28/20 22:05 107 H 136/65 04/28/20 22:00 15 04/28/20 20:00 98.4 F 15 96 04/28/20 18:34 101 H 135/59 L Weight Admit Weight 83.461 kg Weight 98.4 kg Most Recent Monitor Data Heart Rate from ECG 105 NIBP 158/73 NIBP BP-Mean 101 Respiration from ECG 20 SpO2 96 I&O: 04/27/20 04/28/20 04/29/20 06:59 06:59 06:59 Intake Total 1852.5 2711.3 1892.1 Output Total 3155 1431 1619 Balance -1302.5 1280.3 273.1 Result Diagrams: 04/29/20 03:30 04/29/20 03:30 Radiology Reviewed by me: Yes (stable) Phys Exam - Physical Examination Constitutional: NAD Respiratory: no wheezing (coarse sounds bilaterally) Cardiovascular: RRR, no significant murmur Gastrointestinal: soft, no distention Musculoskeletal: edema present (in all 4 limbs & scrotum b/l) Dx/Plan - Plan Plan: 1. Neuro - intubated/sedated on versed and fentanyl, anticipate longterm need for sedation on the vent 2. CV - NSR, monitor 3. Resp COVID PNA - Off airborne/covid precautions - IV dexamethasone , colchicine, albuterol inhaler - 2/4 intubation - Current Vent Settings: SIMV, FiO2 70%, TV 450, RR 20, Peep 14, Peak pressures increased ranging from 30-45. - Pulmonology consulted, appreciate recs 4. GI - dietary consulted, continue carb consistent tube feeds - blood glucose well controlled 5. Renal/ Pseudomonas UTI: pansensitive. on Cefepime. - continue to restrict free water. Keep fluid balance overall euvolemic. - Renal function worsening some, pulm reduced colchicine dose yesterday 6. ID - COVID PNA, see above - s/p rocephin (04/10-04/11) and azithro (04/10-04/12) for possible superimposed bacterial infection - Bronchoscopy 04/23 for leukocytosis - Empiric treatment for VAP: cefepime and vanc 04/23. - CVC line infection: possible contaminant. Given 04/12 + blood cultures with S. Epi, Methicillin resistant, removed L subclavian on 04/26, removed R fem. PICC line in place. Culture from catheter tip NGTD - Pseudomonas UTI: pansensitive pseudomonas 7. Heme - platelets stable, discontinued fondaparinux due to pharmacy's low supply. Switched to oral eliquis for PPx. 8. Endo/Electrolytes - DM2: blood sugars well controlled - NPH 5 BID - SSI, hypoglycemia protocol 9. Lines/Tubes: - L arm PICC 04/27 - Intubated on 04/14 with OG tube placed, day 16 on the vent - Winkler 04/14 10. Abx: - cefepime and vanc started 04/23. Continue to monitor vanc trough. - s/p fluconazole 04/24-04/27 - s/p rocephin (04/10-04/11) and azithro (04/10-04/12) Family/CM: family to visit Saturday. Palliative care is setting up a family meeting. Continue to discuss prognosis, which is poor, compassionate extubation vs trach/peg Dispo: Continue medical management with steroids, colchicine, and ventilation in the ICU.
[2020-04-29] MEDS: Budesonide 0.5 MG/2 ML NEB NEB SCH ×2 (07:27→19:22)
--- NOTE | 2020-04-29 08:39 | PRG ---
DATE OF SERVICE: 04/19/2020 35 minutes critical care time. SUBJECTIVE: The patient remains intubated on mechanical ventilation. OBJECTIVE: VITAL SIGNS: Temperature 98.4, pulse 105, blood pressure 158/73. He is currently on fentanyl and midazolam for analgesia and sedation. Total intake for the last 24 hours has been 2557, output 1869. HEENT: Unchanged. NECK: No JVD. LUNGS: Coarse breath sounds. CARDIOVASCULAR: S1 and S2. Slightly tachycardic. ABDOMEN: Soft. EXTREMITIES: No edema. IMAGING DATA: Chest x-ray shows an ET tube that is about 4.6 cm above the anjali. He has diffuse bilateral infiltrates, which are largely unchanged. LABORATORY DATA: Sodium 140, potassium 4.1, chloride 109, CO2 of 25. His BUN has risen to 63. His creatinine is 1.0. Glucose 106. White blood cell count 7.2, hematocrit 27.1, and platelet count 213. ASSESSMENT: 1. COVID-19 pneumonia. 2. Pseudomonal urinary tract infection. 3. Staphylococcal line sepsis. 4. Acute hypoxic respiratory failure, requiring mechanical ventilation. PLAN: 1. Peak and plateau pressures are somewhat high. We may end up having to reinstitute intermittent paralysis on the patient. 2. Continue the antibiotics for urinary tract infection and line sepsis. 3. Anticoagulation has been switched from Arixtra to Eliquis due to supply problems with Arixtra. 4. The patient's BUN is rising, this may indicate intravascular volume depletion, so I will go ahead and give him some albumin to see if that helps. We will follow. Job ID: [id number]
[2020-04-29] MEDS: Cefepime 2 GM in Sodium Chloride 0.9% 100 ML IVPB SCH ×2 (09:18→20:41)
[2020-04-29] MEDS: Apixaban 2.5 MG TAB PO SCH ×2 (09:19→20:42)
[2020-04-29] MEDS: Pantoprazole 40 MG GRANULES PACKET PER TUBE SCH (09:20)
[2020-04-29] MEDS: Atorvastatin Calcium 20 MG TAB PO SCH (09:20)
[2020-04-29] MEDS: NPH, Human Insulin Isophane 300 UNIT/3 ML VIAL SC SCH ×2 (09:20→20:42)
[2020-04-29] MEDS: Dexamethasone 4 mg/ml Vial SLOW IVP SCH (09:20)
[2020-04-29] MEDS: Polyethylene Glycol 3350 17 GM Packet PER TUBE SCH (09:20)
--- NOTE | 2020-04-29 09:20 | RAD ---
CHEST 1 VIEW: Date: 04/29/2020 HISTORY: Pneumonia. COMPARISON: Radiograph prior day. FINDINGS: Endotracheal tube and PICC tips are in similar location. Air space opacities are similar. No signific ant pneumothorax or effusion. No pneumomediastinum. IMPRESSION: Similar examination of the chest without improved lung aeration. POS: HOME
[2020-04-29] MEDS: Vecuronium 10 MG VIAL IVP PRN ×4 (09:21→22:51)
[2020-04-29] MEDS: Colchicine 0.6 MG TAB PO SCH (09:51)
[2020-04-29] MEDS ORDERED: Vancomycin HCl 750 MG in Sodium Chloride 0.9% 250 ML 250 ML IVPB SCH (12:00)
[2020-04-29 12:22] VITALS: BMI 33.0
--- NOTE | 2020-04-29 13:22 | PRG ---
DATE OF SERVICE: 04/29/2020 I have examined Mr. Vergara and discussed the case with Dr. Hermelinda Morales. The family will meet tomorrow to decide on future palliative care for this very unfortunate patient. I have otherwise discussed with Dr. Morales and agree with her assessment and plan. Job ID: [id number]
--- NOTE | 2020-04-29 17:03 | PDOC.PALCO ---
Palliative Care Consult - Consult Details Requesting Physician: Dr Morales Reason for Consult: goals of care, family support, complex decision-making - Pertinent HPI 75 year old male who recently moved from [place]. He has an onset of Covid symptoms 03/31/20 of fever, malaise, and shortness of breath. Increase in shortness of breath. Negative for nausea, vomiting. Prior to admission to the hospital he was treated with abx, steroids however cough, sh ortness of breath and weakness increased. He presented to [place] emergency room where he was transferred to [facility] for higher level of care. Sats were 58% on supplemental O2 on 3l NC, High flow was initiated and admitted for care. He continued to decline and required subsequent intubation and admission to CCU. - Pertinent PMH Diabetes, hypertension - Social History Smoking Status: Former smoker Smoking: quit greater than 1 year Alcohol Use: none Drug Use History: none Living Situation: - Medications MAR Reviewed: Yes - Allergies Allergies/Adverse Reactions: Allergies Allergy/AdvReac Type Severity Reaction Status Date / Time No Known Drug Allergies Allergy Verified 04/11/20 00:53 - Subjective Intubated with mechanical ventilation, abx for UTI, steroids, sedated - ROS Non Response: due to endotracheal tube, due to mental status - Objective Vital Signs: Vital Signs - Most Recent Temp Pulse Resp BP Pulse Ox 97.7 F 108 H 20 154/68 H 93 L 04/29/20 16:00 04/29/20 15:43 04/29/20 16:00 04/29/20 02:51 04/29/20 08:10 Palliative Performance Scale: 20 - Physical Exam Constitutional: encephalitic, ill appearing HEENT: moist MMs Respiratory: diminished lung sound Deviation from normal: bilaterally adventicious Cardiovascular: RRR Gastrointestinal: soft, non-tender, positive bowel sounds Genitourinary: mena catheter Musculoskeletal: edema present Deviation from normal: sedated, facial symmetry Skin: cap refill <2 seconds, no lesions, no rash Deviation from normal: sedated/encephalopathic - Problem List (1) COVID-19 Code(s): U07.1 - COVID-19 Current Visit: Yes Status: Acute (2) Respiratory failure requiring intubation Code(s): J96.90 - RESPIRATORY FAILURE, UNSP, UNSP W HYPOXIA OR HYPERCAPNIA Current Visit: Yes Status: Acute (3) Urinary tract infection Current Visit: Yes Status: Acute (4) Palliative care encounter Code(s): Z51.5 - ENCOUNTER FOR PALLIATIVE CARE Current Visit: Yes Status: Acute - Plan/Recommendations Plan: Lengthy conversation with patient spouse Kristi. Short life review. Mr Vergara is in addwish with [email or web address]. They moved from [place] Mar 24 2020 to a [place] farm. He and Kristi have been 42 years, between the two of them they each have a son. Nicholas So and Constantino Reviewed prognosis and meaningful recovery. Discussed what would Mr Vergara tell us he would desire if he could speak. She states that he would not desire a Trach/Peg. Discussed consideration of Hospice/compassionate extubation. Family meeting 04/30/20 at 1pm to discuss goal Dr Morales aware. [60] minutes spent on this encounter with >50% of the time in counseling and coordination of care. Thank you for this very appropriate consult.
[2020-04-29 22:36] LABS: Vancomycin, Random 25.9 ug/mL (See Comment)
[2020-04-30] MEDS ORDERED: Fentanyl CADD 100 ML ONE (01:36)
[2020-04-30] MEDS: Fentanyl CADD 100 ML IV SCH (01:40)
[2020-04-30] MEDS: Vecuronium 10 MG VIAL IVP PRN ×2 (04:34→11:35)
[2020-04-30 05:17] LABS: Anion Gap 11 mmol/L (10-20); BUN (Urea Nitrogen) 61 mg/dL (8.4-25.7); Calc. Creatinine Clearance 0 mL/min (70-130); Calcium 7.9 mg/dL (7.8-10.44); Carbon Dioxide 25 mmol/L (23-31); Chloride 111 mmol/L (98-107); Glucose 114 mg/dL (83-110); Potassium 4.6 mmol/L (3.5-5.1); Sodium 142 mmol/L (136-145)
[2020-04-30 05:25] LABS: Eosinophils 4 % (0-10); Hemoglobin 9.6 g/dL (14.0-18.0); Lymphocytes 6 % (21-51); MDiff Complete? YES; Mean Corpuscular HGB CONC 32.1 g/dL (32.0-36.0); Mean Corpuscular Hemoglobin 33.8 pg (27.0-31.0); Mean Platelet Volume 8.5 fL (7.4-10.4); Monocytes 6 % (0-10); Myelocyte 1 % (0-0); Neutrophil 82 % (42-75); Platelet Count 269 thou/uL (130-400); Platelet Morphology Comment Appears Adequate; RBC Distribution Width 12.6 % (11.5-14.5); RBC Morphology Normal; Reactive Lymphocytes 1 % (0-10); Red Blood Cell (RBC) Count 2.85 mill/uL (4.70-6.10)
--- NOTE | 2020-04-30 05:50 | PDOC.FM ---
- Subjective Subjective: Patient intubated and sedated. Vital signs: tachycardic and HTN on sedation. - Objective MAR Reviewed: Yes Vital Signs & Weight: Vital Signs (12 hours) Temp Pulse Resp BP Pulse Ox 04/30/20 04:00 15 04/30/20 02:18 113 H 159/79 H 04/30/20 02:00 20 04/30/20 00:00 20 04/29/20 22:20 104 H 153/77 H 04/29/20 22:00 20 04/29/20 20:00 98.4 F 15 96 04/29/20 19:19 104 H 04/29/20 18:00 20 Weight Admit Weight 83.461 kg Weight 98.3 g Most Recent Monitor Data Heart Rate from ECG 126 NIBP 165/74 NIBP BP-Mean 104 Respiration from ECG 20 SpO2 96 I&O: 04/28/20 04/29/20 04/30/20 06:59 06:59 06:59 Intake Total 2711.3 2555.7 2075.0 Output Total 1431 1869 2510 Balance 1280.3 686.7 -435.0 Result Diagrams: 04/30/20 04:40 04/30/20 04:40 Radiology Reviewed by me: Yes (stable) Phys Exam - Physical Examination Constitutional: NAD HEENT: PERRLA Respiratory: no wheezing (coarse rhonchi bilaterally) Cardiovascular: no significant murmur (tachycardic rate, sinus rhythm) Gastrointestinal: soft, no distention Musculoskeletal: edema present Dx/Plan - Plan Plan: 1. Neuro - intubated/sedated on versed and fentanyl 2. CV - NSR, monitor 3. Resp COVID PNA - Off airborne/covid precautions - IV dexamethasone , colchicine, albuterol inhaler - 2/4 intubation - Current Vent Settings: SIMV, FiO2 70%, TV 450, RR 20, Peep 14, Peak pressures increased ranging from 30-55. - Pulmonology consulted, appreciate recs 4. GI - dietary consulted, continue carb consistent tube feeds - blood glucose well controlled 5. Renal/ Pseudomonas UTI: pansensitive. on Cefepime. - continue to restrict free water. Keep fluid balance overall euvolemic. - Renal function worsening some, pulm reduced colchicine to once daily 6. ID - COVID PNA, see above - s/p rocephin (04/10-04/11) and azithro (04/10-04/12) for possible superimposed bacterial infection - Bronchoscopy 04/23 for leukocytosis - Empiric treatment for VAP: cefepime and vanc 04/23. - CVC line infection: possible contaminant. Given 04/12 + blood cultures with S. Epi, Methicillin resistant, removed L subclavian on 04/26, removed R fem. PICC line in place. Culture from catheter tip NGTD - Pseudomonas UTI: pansensitive pseudomonas 7. Heme - platelets stable, oral eliquis for PPx. 8. Endo/Electrolytes - DM2: blood sugars well controlled - NPH 5 BID - SSI, hypoglycemia protocol 9. Lines/Tubes: - L arm PICC 04/27 - Intubated on 04/14 with OG tube placed, day 17 on the vent - Winkler 04/14 10. Abx: - cefepime and vanc started 04/23. Continue to monitor vanc trough. - s/p fluconazole 04/24-04/27 - s/p rocephin (04/10-04/11) and azithro (04/10-04/12) Family/CM: family to visit today for meeting at 1pm. Palliative care assisting and appreciate recs. From their note, family may likely elect for compassionate extubation. Dispo: Continue medical management with steroids, colchicine, and ventilation in the ICU. Addendum - Attending - Attending Attestation Date/Time: 04/30/20 0608 I personally evaluated the patient and discussed the management with Dr. Morales. I agree with the History, Examination, Assessment and Plan documented above with any addition or exceptions noted below. Patient remains on the vent. A family meeting is scheduled this afternoon to discuss goals of care.
[2020-04-30] MEDS: Budesonide 0.5 MG/2 ML NEB NEB SCH (07:37)
[2020-04-30] MEDS ORDERED: Sodium Chloride 0.9% 500 ML IV SCH (07:45)
[2020-04-30 07:50] VITALS: BP 138/77
--- NOTE | 2020-04-30 08:07 | PRG ---
DATE OF SERVICE: 04/30/2020 35 minutes of critical care time. SUBJECTIVE: The patient remains intubated on mechanical ventilation. There has been no improvement. OBJECTIVE: VITAL SIGNS: His temperature 98.9, pulse 136, blood pressure 138/77, O2 saturation 94%. 24-hour intake 2925, output 2585. HEENT: Unremarkable. NECK: No adenopathy or JVD. LUNGS: Poor air movement. Diminished breath sounds bilaterally. CARDIAC: S1 and S2. Regular. ABDOMEN: Soft. EXTREMITIES: No edema. LABORATORY DATA: His x-ray shows bilateral infiltrates that are unchanged. His white blood cell count is 9, hematocrit 30, and platelet count 269. Sodium 142, potassium 4.6, chloride 111, CO2 of 25, BUN 61, creatinine 0.9, glucose 114. ASSESSMENT: 1. COVID-19 pneumonia. 2. Acute hypoxic respiratory failure, requiring mechanical ventilation. 3. Pseudomonal urinary tract infection. 4. Staphylococcal line sepsis. 5. Renal dysfunction. PLAN: 1. I have switched him over to bilevel ventilation because of persistently high peak pressures on the ventilator. I am somewhat concerned that this is due to the ventilator itself and not the patient's mechanics. 2. Continue anticoagulation with Eliquis. 3. Volume repletion seems to have helped his BUN. Giving him more volume is an option in the future if he has a setback in his renal status. Job ID: [id number]
[2020-04-30] MEDS: Cefepime 2 GM in Sodium Chloride 0.9% 100 ML IVPB SCH (08:56)
[2020-04-30] MEDS: Dexamethasone 4 mg/ml Vial SLOW IVP SCH (08:56)
[2020-04-30] MEDS: Polyethylene Glycol 3350 17 GM Packet PER TUBE SCH (08:56)
[2020-04-30] MEDS: Apixaban 2.5 MG TAB PO SCH (08:57)
[2020-04-30] MEDS: Pantoprazole 40 MG GRANULES PACKET PER TUBE SCH (08:57)
[2020-04-30] MEDS: Atorvastatin Calcium 20 MG TAB PO SCH (08:57)
[2020-04-30] MEDS: NPH, Human Insulin Isophane 300 UNIT/3 ML VIAL SC SCH (09:08)
[2020-04-30] MEDS: Colchicine 0.6 MG TAB PO SCH (10:41)
--- NOTE | 2020-04-30 10:48 | RAD ---
PORTABLE CHEST: HISTORY: Pneumonia followup. FINDINGS: The endotracheal tube is in satisfactory position. Left-sided PICC line unchanged in position. Exte nsive multifocal infiltrative lung changes are stable. IMPRESSION: Stable exam. POS: LUTHER
[2020-04-30 11:20] LABS: Vancomycin, Random 21.4 ug/mL (See Comment)
[2020-04-30] MEDS ORDERED: Norepinephrine 8 MG/0.9% NS 250 ML ONE (13:05)
[2020-04-30] MEDS ORDERED: Norepinephrine 8 MG/0.9% NS 250 ML IVPB SCH (13:15)
[2020-04-30 14:03] VITALS: TEMP 98.7
[2020-04-30] MEDS ORDERED: Lorazepam 2 MG/ML VIAL SLOW IVP PRN (14:29)
[2020-04-30] MEDS ORDERED: Morphine 4 MG/ML VIAL SLOW IVP PRN (14:29)
[2020-04-30] MEDS ORDERED: Hyoscyamine Sulfate SL 0.125 mg Tablet PO PRN (14:29)
--- NOTE | 2020-04-30 15:07 | PDOC.BPN ---
- Brief Progress Note Encounter Date: 04/30/20 Encounter Time: 00:00 Just had family meeting with patient's and two sons to discuss his status. He recently began requiring Levophed gtt as he likely has a pneumo. They expressed understanding. They have decided that they do not want to wait for hospice and they would like palliative measures in place now. I discussed this with Steffi Loya NP. They would like to discontinue the blood pressure support and compassionately extubate. I placed the orders for discontinuation of the levophed and put on morphine, levesin, and ativan. I called and let Dr. Romano know. Everyone is in agreement.
--- NOTE | 2020-04-30 15:21 | PDOC.FMACP ---
Advance Care Planning - Problem (1) COVID-19 Status: Acute Code(s): U07.1 - COVID-19 (2) Respiratory failure requiring intubation Status: Acute Code(s): J96.90 - RESPIRATORY FAILURE, UNSP, UNSP W HYPOXIA OR HYPERCAPNIA (3) Urinary tract infection Status: Acute (4) Palliative care encounter Status: Acute Code(s): Z51.5 - ENCOUNTER FOR PALLIATIVE CARE - Note Participants: family, palliative care, other (Dr Perry) Summary: Palliative care continued conversation in relation to Advanced Care Planning with patient spouse, sons Miguelangel and Constantino, and Dr Perry. The diagnosis, prognosis and goals of care were discussed. Appropriate forms and documentation to accomplish the goals of care were discussed. All questions were answered. Initial aspect of conversation with family and Dr Perry to revisit goal of care. Encouraged family to think of what Mr Vergara would want in relation to his care. Family elected to transition care to comfort with no continued aggressive measures, notified Dr Perry of decision. Family did not desire to have hospice care, discussed extra support but family did not desire to pursue this overlay of care. Emotional support. Time Spent (mins): 75
--- NOTE | 2020-05-01 09:58 | DIS ---
DATE OF ADMISSION: 04/10/2020 DATE OF DISCHARGE: 04/30/2020 SUMMARY. DATE OF : 04/30/2020. TIME OF : 151. CAUSE OF : 1. COVID pneumonia. 2. Superimposed bacterial pneumonia. 3. Central line associated bacteremia. 4. Pseudomonas urinary tract infection. SECONDARY DIAGNOSES: 1. Hyperlipidemia. 2. Type 2 diabetes mellitus. 3. Former smoker less than one pack a day for 10 years and quit 15 years prior to admission. 4. Hypertension. 5. Acute kidney injury, resolved. HOSPITAL COURSE: This 75-year-old male was admitted on 04/10/2020, with shortness of breath, fever, and myalgias. He was diagnosed with COVID-19 pneumonia. He was requiring oxygen support, but acutely worsened on April 14, requiring intubation. He was subsequently treated for superimposed bacterial pneumonia and treated for a total course of seven days. Due to an elevated white count on April 23, he underwent bronchoscopy and had urine cultures that showed Pseudomonas UTI. Blood culture showed Staph epidermidis from his central line. This could have been contaminant that the patient was treated with vancomycin for this regardless. Throughout the week, the patient was unable to be weaned from the ventilator. His PEEP was quite high and his oxygen requirement was between 70 and 100% FiO2. Palliative Care was consulted, and the family declined tracheostomy and PEG, which they believed the patient would not want. The patient was compassionately extubated on 04/30/2020 and at 1513. Body was [place] the [facility] [place]. Job ID: [id number]
== END 2020-04-30 16:50 | disposition expired | DRG 207 ==
LOC: ERS 16:10 → 2SE 17:05 → PACU-TCU 04-14 11:22 → CCU 04-14 12:56
PROVIDERS: ADMIT Family Medicine; ATTEND Family Medicine
PROC: 5A1955Z Respiratory Ventilation, Greater than 96 Consecutive Hours (ICD-10-PCS; principal; 2020-04-14)
PROC: 0D9670Z Drainage of Stomach with Drainage Device, Via Natural or Artificial Opening (ICD-10-PCS; 2020-04-14)
PROC: 02H633Z Insertion of Infusion Device into Right Atrium, Percutaneous Approach (ICD-10-PCS; 2020-04-14)
PROC: 0B9F8ZZ Drainage of Right Lower Lung Lobe, Via Natural or Artificial Opening Endoscopic (ICD-10-PCS; 2020-04-23)
PROC: 0B918ZZ Drainage of Trachea, Via Natural or Artificial Opening Endoscopic (ICD-10-PCS; 2020-04-23)
PROC: 0B9D8ZZ Drainage of Right Middle Lung Lobe, Via Natural or Artificial Opening Endoscopic (ICD-10-PCS; 2020-04-23)
PROC: 06HY33Z Insertion of Infusion Device into Lower Vein, Percutaneous Approach (ICD-10-PCS; 2020-04-26)
PROC: 06H033Z Insertion of Infusion Device into Inferior Vena Cava, Percutaneous Approach (ICD-10-PCS; 2020-04-27)
PROC: B549ZZA Ultrasonography of Inferior Vena Cava, Guidance (ICD-10-PCS; 2020-04-27)
DX: U07.1 COVID-19 (principal); T80.219A Unspecified infection due to central venous catheter, initial encounter; J12.82 Pneumonia due to coronavirus disease 2019; J15.9 Unspecified bacterial pneumonia; J80 Acute respiratory distress syndrome; A41.89 Other specified sepsis; N17.9 Acute kidney failure, unspecified; I24.8 Other forms of acute ischemic heart disease; E87.0 Hyperosmolality and hypernatremia; N39.0 Urinary tract infection, site not specified; Z51.5 Encounter for palliative care; E87.5 Hyperkalemia; N18.9 Chronic kidney disease, unspecified; E66.9 Obesity, unspecified; I12.9 Hypertensive chronic kidney disease with stage 1 through stage 4 chronic kidney disease, or unspecified chronic kidney disease; E11.22 Type 2 diabetes mellitus with diabetic chronic kidney disease; E11.65 Type 2 diabetes mellitus with hyperglycemia; E78.5 Hyperlipidemia, unspecified; E78.00 Pure hypercholesterolemia, unspecified; Z79.899 Other long term (current) drug therapy; Z79.84 Long term (current) use of oral hypoglycemic drugs; Z87.891 Personal history of nicotine dependence; D69.6 Thrombocytopenia, unspecified; B96.5 Pseudomonas (aeruginosa) (mallei) (pseudomallei) as the cause of diseases classified elsewhere; Y83.9 Surgical procedure, unspecified as the cause of abnormal reaction of the patient, or of later complication, without mention of misadventure at the time of the procedure; Y92.239 Unspecified place in hospital as the place of occurrence of the external cause
CPT/HCPCS: 31624; 36415; 36416; 36569; 36600; 71045; 71275; 80048; 80053; 80202; 82728; 82805; 84145; 85025; 85379; 85610; 86140; 87040; 87070; 87071; 87077; 87086; 87102; 87116; 87149; 87186; 87205; 87206; 87633; 87798; 94002; 94003; 94640; 94660; C1751; C9113; J0456; J0692; J0696; J1100; J1450; J1644; J1650; J1652; J1815; J1940; J2060; J2270; J2704; J3010; J3370; J3490; J7050; J7620; J7626; J8540; P9045; Q9967